=== PATIENT | female | born 1930 | race Caucasian/White ===

== ENCOUNTER 2016-09-24 16:05 | Inpatient (IN) | payer MEDICARE, OTHER ==
[~2016-09-24] VITALS: Ht 162.6 cm; Wt 60.0 kg
[~2016-09-24 16:05] MED LIST: HYDR-3671 PO; LEVO50TA83 PO; MELO7.5O PO; METO10TA96 PO; PANT40TA4 PO; ROSU20TA PO
--- NOTE | 2016-09-24 16:26 | ERA ---
ER Documentation Chief Complaint Date/Time DATE: 09/24/16 TIME: 16:22 Chief Complaint DIALYSIS ACESS PROBLEM HPI 86-year-old female history of end-stage renal disease on dialysis who presents with poor flow to the right upper extremity AV fistula. The patient underwent 2 hours of dialysis today but there was low flow. 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 Umanzor sent the patient to the emergency room for evaluation. The patient denies any chest pain shortness of breath, no fevers or chills, no bleeding. The patient otherwise has no complaints. ROS All systems reviewed and are negative except as per history of present illness. Medications Home Meds Reported Medications Cholecalciferol (Vitamin D3) 1,000 Unit Capsule, 1000 UNIT PO DAILY, CAP 09/24/16 Loratadine* (Loratadine*) 10 Mg Tablet, 10 MG PO DAILY Y for PRN, #30 TAB 09/24/16 Aspirin* (Aspirin* EC) 81 Mg Tablet.dr, 81 MG PO DAILY, TAB 09/24/16 Metoprolol Tartrate* (Lopressor*) 25 Mg Tab, 25 MG PO DAILY, #60 TAB 09/24/16 Multivit/Ca Carb/B Cmplx/Fa* (Diandra-Svetlana*) 1 Tab Tab, 1 TAB PO DAILY, TAB 09/24/16 Folic Acid* (Folic Acid*) 1 Mg Tablet, 1 MG PO DAILY, TAB 09/24/16 Docusate Sodium* (Colace*) 100 Mg Capsule, 100 MG PO BID, #60 CAP 09/24/16 Saxagliptin Hcl* (Onglyza*) 2.5 Mg Tablet, 2.5 MG PO QOTHER DAY, TAB 09/24/16 Calcium Acetate* (Phoslo*) 667 Mg Tablet, 667 MG PO WITH MEALS, TAB 09/24/16 Promethazine HCl/Codeine (Prometh-Codein 6.25-10 mg/5 ml) 5 Ml Syrup, 5 ML PO DAILY Y for PRN 09/24/16 Levothyroxine Sodium* (Synthroid*) 50 Mcg Tablet, 50 MCG PO BEFORE BREAKFAST, # 30 TAB 04/30/16 Metoclopramide Hcl* (Metoclopramide Hcl*) 10 Mg Tablet, 10 MG PO DAILY Y for NAUSEA AND OR VOMITING, TAB 04/30/16 Pantoprazole* (Pantoprazole*) 40 Mg Tablet.dr, 40 MG PO AC BREAKFAST, TAB 03/24/15 Rosuvastatin Calcium* (Crestor*) 20 Mg Tablet, 20 MG PO HS, TAB 03/24/15 Discontinued Reported Medications Iron Sucrose (Venofer) 50 Mg/2.5 Ml Vial, 50 MG IV WEEKLY, VIAL ON SCHED TRMT 09/24/16 Meloxicam* (Meloxicam*) 7.5 Mg/5 Ml Oral.susp, 15 MG PO DAILY, #300 ML 04/30/16 Hydralazine Hcl* (Hydralazine Hcl*) 25 Mg Tab, 25 MG PO BID, TAB 03/24/15 Allergies Allergies: Coded Allergies: Penicillins (Verified Allergy, Severe, SWELLING, 09/24/16) iodine (Verified Allergy, Severe, 09/24/16) PMhx/Soc History of Surgery: Yes (CABG, RUE AV fistula, R mastectomy) Anesthesia Reaction: No Hx Neurological Disorder: No Hx Respiratory Disorders: No Hx Cardiac Disorders: Yes (triple bypass 10 yrs ago) Hx Psychiatric Problems: No Hx Miscellaneous Medical Probl: Yes (HD every ,,Sat) Hx Alcohol Use: No Hx Substance Use: No Hx Tobacco Use: No FmHx Family History: No diabetes Physical Exam Vitals Vital Signs Date Time Temp Pulse Resp B/P Pulse Ox O2 Delivery O2 Flow Rate FiO2 09/24/16 16:42 Nasal Cannula 2 09/24/16 16:07 98.5 61 18 133/62 99 Physical Exam General: Well developed, well nourished, no acute distress Head: Normocephalic, atraumatic. Eyes: Pupils equally reactive, EOM intact ENT: Moist mucous membranes Neck: Supple, no lymphadenopathy Respiratory: Lungs clear bilaterally, no distress Cardiovascular: RRR, no murmurs, rubs, or gallops Abdominal: Soft, non-tender, non-distended, no peritoneal signs : Deferred MSK: No edema, no unilateral swelling, 5/5 strength, right upper extremity AV fistula with a bruit and thrill, dressing is clean dry and intact Neurologic: Alert and oriented, moving all extremities, normal speech, no focal weakness, no cerebellar signs Skin: No rash Psych: Normal mood Result Diagram: 09/24/16 1655 09/24/16 1655 Results 24 hrs Laboratory Tests Test 09/24/16 16:55 Activated Partial Thromboplast Time 29.5Sec Anion Gap 15 Basophils # 0.010^3/ul Basophils % 0.5% Blood Urea Nitrogen 53mg/dl Calcium Level 8.5mg/dl Carbon Dioxide Level 29mmol/L Chloride Level 93mmol/L Creatinine 2.76mg/dl Eosinophils # 0.310^3/ul Eosinophils % 4.1% Glucose Level 161mg/dl Hematocrit 33.9% Hemoglobin 10.8g/dl INR International Normalized Ratio 0.93 Lymphocytes # 1.810^3/ul Lymphocytes % 24.2% Mean Corpuscular Hemoglobin 33.6pg Mean Corpuscular Hemoglobin Concent 31.9g/dl Mean Corpuscular Volume 105.6fl Mean Platelet Volume 9.5fl Monocytes # 1.110^3/ul Monocytes % 14.7% Neutrophils # 4.110^3/ul Neutrophils % 56.0% Nucleated Red Blood Cells # 0.010^3/ul Nucleated Red Blood Cells % 0.0/100WBC Platelet Count 87940^3/UL Potassium Level 4.2mmol/L Prothrombin Time 12.5Sec Prothrombin Time Ratio 1.0 Red Blood Count 3.2110^6/ul Red Cell Distribution Width 13.5% Sodium Level 133mmol/L White Blood Count 7.410^3/ul Current Medications Medications (Trade) Dose Ordered Sig/Lisa Route PRN Reason Start Time Stop Time Status Last Admin Dose Admin IV Flush (NS 3 ml) 3 ml PER PROTOCOL IV 09/24/16 17:00 Ondansetron HCl (Zofran Inj) 4 mg Q6H PRN IV NAUSEA AND/OR VOMITING 09/24/16 17:00 Acetaminophen (Tylenol Tab) 650 mg Q6H PRN PO PAIN LEVEL 1-3 OR FEVER 09/24/16 17:00 Acetaminophen (Tylenol Supp) 650 mg Q6H PRN [place] PAIN LEVEL 1-3 OR FEVER 09/24/16 17:00 Docusate Sodium (Colace) 100 mg Q12H PRN PO CONSTIPATION 09/24/16 17:00 Bisacodyl (Dulcolax) 5 mg DAILY PRN PO CONSTIPATION 09/24/16 17:00 Pantoprazole (Protonix Iv) 40 mg DAILY@06 IV 09/25/16 06:00 Levothyroxine Sodium (Synthroid) 50 mcg BEFORE BREAKFAST PO 09/25/16 07:00 Metoclopramide HCl (Reglan) 10 mg DAILY PRN PO NAUSEA AND/OR VOMITING 09/24/16 17:30 Pantoprazole (Protonix Tab) 40 mg AC BREAKFAST PO 09/25/16 07:00 09/25/16 07:00 DC Atorvastatin Calcium (Lipitor) 80 mg HS PO 09/24/16 21:00 Ondansetron HCl (Zofran Inj) 4 mg BRIDGE ORDER PRN IV NAUSEA AND/OR VOMITING 09/24/16 18:00 09/25/16 17:59 Acetaminophen (Tylenol Tab) 650 mg ER BRIDGE PRN PO MILD PAIN/FEVER 09/24/16 18:00 09/25/16 17:59 Procedures/MDM EKG, MONITORS, & DIAGNOSTIC IMAGING: EKG: I reviewed and interpreted a 12-lead EKG. Rhythm: Normal sinus rhythm Ectopy: None Intervals: No abnormalities ST segments: No elevations or depressions T waves: No contiguous inversions LAB INTERPRETATION: Chronic renal failure, no hyperkalemia MEDICAL DECISION MAKING: The patient presents to the emergency room for evaluation of malfunctioning right upper extremity AV fistula. The patient has no evidence of volume overload. The patient will be evaluated for hyperkalemia. The patient may require inpatient hospitalization with vascular surgery consultation. At this time no indication for emergent dialysis. ER COURSE: The patient is resting comfortably. Dr. Umanzor has seen the patient. He is requesting vascular surgery consultation has been paged. The patient is stable for medical surgical placement given no evidence of hyperkalemia or volume overload. I kept the patient and/or family informed of laboratory and diagnostic imaging results throughout the emergency room course. DISPOSITION PLAN: Medical surgical admission for management of malfunctioning AV fistula CONSULTATION: Accepting care team and consultations: I discussed the current laboratory data, diagnostic imaging and emergency care provided. Admitting team: Dr. Fabiano Umanzor Admitting team indication: Insurance directed Consulting services: Dr. Connor, vascular surgeon was notified. Departure Diagnosis: Primary Impression: Dialysis AV fistula malfunction Qualified Code: T82.590A - Dialysis AV fistula malfunction, initial encounter Additional Impression: End stage renal disease on dialysis Condition: Stable MARISA LOPEZ MD Sep 24, 2016 16:26
[2016-09-24] MEDS ORDERED: NACL 0.9% 3 ML SYG IV SCH (17:00)
[2016-09-24] MEDS ORDERED: ONDANSETRON 4 MG INJ IV PRN ×2 (17:00→18:00)
[2016-09-24] MEDS ORDERED: ACETAMINOPHEN 650 MG SUPP PR PRN (17:00)
[2016-09-24] MEDS ORDERED: DOCUSATE SODIUM 100 MG CAP PO PRN (17:00)
[2016-09-24] MEDS ORDERED: BISACODYL (EC) 5 MG TAB PO PRN (17:00)
[2016-09-24 17:03] LABS: ADD SCAN DIFF NO
[2016-09-24 17:13] LABS: BASOPHILS % 0.5 % (0.0-2.0); EOSINOPHILS # 0.3 10^3/ul (0.0-0.5); EOSINOPHILS % 4.1 % (0.0-7.0); HEMATOCRIT 33.9 % (37.0-47.0); HEMOGLOBIN 10.8 g/dl (12.0-16.0); LYMPHOCYTES # 1.8 10^3/ul (0.8-2.9); LYMPHOCYTES % 24.2 % (15.0-51.0); MEAN CORPUSCULAR HEMOGLOBIN 33.6 pg (29.0-33.0); MEAN CORPUSCULAR HGB CONC 31.9 g/dl (32.0-37.0); MEAN CORPUSCULAR VOLUME 105.6 fl (82.0-101.0); MEAN PLATELET VOLUME 9.5 fl (7.4-10.4); MONOCYTE # 1.1 10^3/ul (0.3-0.9); MONOCYTES % 14.7 % (0.0-11.0); NEUTROPHIL # 4.1 10^3/ul (1.6-7.5); PLATELET COUNT 185 10^3/UL (140-415); RED BLOOD COUNT 3.21 10^6/ul (4.20-5.40); RED CELL DISTRIBUTION WIDTH 13.5 % (11.5-14.5); WHITE BLOOD COUNT 7.4 10^3/ul (4.8-10.8)
--- NOTE | 2016-09-24 17:13 | QN ---
Documentation Comment [id number] BRANDON MITCHELL MD Sep 24, 2016 17:13
--- NOTE | 2016-09-24 17:16 | RADRPT ---
PROCEDURE: XR Chest. CLINICAL INDICATION: Chest pain. TECHNIQUE: Single frontal view of the chest was obtained COMPARISON: Chest x-ray June 26, 2015 12:53 p.m. FINDINGS: A mediastinotomy was performed with vascular calcifications in the aortic arch. There are clips in the right axillary area. The heart is enlarged. The right pleural effusion seen on the prior study has resolved. The interstitial pulmonary edema seen on the prior study has resolved. The pulmonary vasculature remains equilibrated. IMPRESSION: 1. Cardiomegaly with atherosclerotic vascular disease involving the aortic arch. 2. Equilibration the pulmonary vasculature may reflect mild pulmonary venous obstruction. The inte rstitial pulmonary edema and right pleural effusion identified on June 26, 2015 has resolved. 3. Status post right axillary node dissection. 4. Status post median sternotomy. RPTAT:AAJJ Physician Nathaly Date Time Electronically viewed and signed by Physician Nathaly on 09/24/2016 17:15 CANDY/
[2016-09-24] MEDS ORDERED: PROM5SYR2 PO (17:18)
[2016-09-24] MEDS ORDERED: CALC667T2 PO (17:19)
[2016-09-24] MEDS ORDERED: IRON50VI2 IV (17:20)
[2016-09-24 17:22] LABS: INR 0.93; PARTIAL THROMBOPLASTIN TIME 29.5 Sec (25.0-35.0); PROTIME 12.5 Sec (12.2-14.2)
[2016-09-24] MEDS ORDERED: SAXA2.5T PO (17:23)
[2016-09-24] MEDS ORDERED: FOLI-49 PO (17:24)
[2016-09-24] MEDS ORDERED: DOCU-144 PO (17:24)
[2016-09-24] MEDS ORDERED: NEPH PO (17:25)
[2016-09-24] MEDS ORDERED: ASPI-664 PO (17:26)
[2016-09-24] MEDS ORDERED: METO-448 PO (17:26)
[2016-09-24] MEDS ORDERED: LORA10TA3 PO (17:27)
[2016-09-24] MEDS ORDERED: CHOL10009 PO (17:29)
[2016-09-24] MEDS ORDERED: METOCLOPRAMIDE 10 MG TAB PO PRN (17:30)
[2016-09-24 17:42] LABS: POTASSIUM 4.2 mmol/L (3.5-5.1)
[2016-09-24 17:44] LABS: CREATININE 2.76 mg/dl (0.44-1.00)
[2016-09-24 17:45] LABS: CALCIUM 8.5 mg/dl (8.4-10.2)
[2016-09-24] MEDS ORDERED: ACETAMINOPHEN 325 MG TAB PO PRN (18:00)
--- NOTE | 2016-09-24 18:12 | HP ---
DATE OF ADMISSION: 09/24/2016 HISTORY OF PRESENT ILLNESS: The patient is an 86-year-old female with history of ESRD, hypertension , diabetes mellitus, CAD, history of AV fistula in the right upper extremity. Status post patient h as a history of fall mechanical, history of osteoporotic compression fracture of T12 and L3 vertebra l bodies with retropulsion in the past, history of L1 compression fracture, history of diabetes, hyp ertension, history of humerus fracture, history of breast carcinoma status post mastectomy left, his tory of chemotherapy, history of sepsis, history of CAD, history of atherosclerotic heart disease, d yslipidemia, presented with clotted AV graft and is going to be admitted for further management. PAST MEDICAL HISTORY: As mentioned above. Briefly, ESRD, hypertension, diabetes mellitus, CAD, ath erosclerotic heart disease. ALLERGIES: 1. PENICILLIN. 2. IODINE. SOCIAL HISTORY: Negative. FAMILY HISTORY: Negative. MEDICATION HISTORY: Positive medication history. The patient is on: 1. Hydralazine. 2. Levothyroxine. 3. Meloxicam. 4. Reglan. 5. Protonix. 6. Crestor. REVIEW OF SYSTEMS: HEENT: Unremarkable. RESPIRATORY: Unremarkable. CARDIOVASCULAR: Unremarkable. ABDOMEN: Unremarkable. EXTREMITIES: Clotted AV graft in the right upper extremity. CENTRAL NERVOUS SYSTEM: Unremarkable. PHYSICAL EXAMINATION: GENERAL: The patient is awake and alert. VITAL SIGNS: Stable 133/62, pulse 61. HEAD: Atraumatic, normocephalic. Pupils equal, reactive to light. NECK: Supple. No JVD. LUNGS: Clear. CARDIOVASCULAR: S1, S2 is normal. Systolic murmur noted. ABDOMEN: Soft, nontender. Bowel sounds positive. No palpable mass. EXTREMITIES: No cyanosis, clubbing, or edema. The patient has clotted graft right upper extremity. NETWORK DEVELOPER: The patient is awake, alert, no focal deficit. LABORATORY DATA: Not available at this point. IMPRESSION: 1. Clotted AV graft. 2. ESRD. 3. Hypertension. 4. Diabetes mellitus. 5. Atherosclerotic heart disease. 6. History of breast cancer with mastectomy, left. 7. History of humerus fracture, left in the past. 8. History of compression fracture of the vertebra L1. 9. History of dyslipidemia. 10. History of CAD. 11. History of osteoporosis. PLAN: To obtain laboratory data. Review ER record. Dr. Malekmehr was called to see this patient i n consultation for declotting of the AV graft. Orders were done. Dictated By: BRANDON CHRISTIE/CHRISTI Conf#: [id number] DID#: [id number]
[2016-09-24 20:15] VITALS: BP 140/64; RESP 18
--- NOTE | 2016-09-24 21:15 | RADRPT ---
PROCEDURE: Ultrasound arterial upper extremity. CLINICAL INDICATION: No flow in arteriovenous fistula. Right upper extremity arterial venous fistu la. TECHNIQUE: Multiple yeh scale and color Doppler sonographic images of the hemodialysis fistula of the upper extremity was performed. COMPARISON: None. FINDINGS: The inflow artery is patent with velocities of 95-120 cm/sec proximal to the anastomosis. The veloc ity at the anastomosis is approximately 95 cm/sec. Velocity within the outflow vein distal to the a nastomosis is approximately 95-115 cm/sec. The distal portion of the outflow vein is completely thr ombosed. The left axillary vein is patent. IMPRESSION: Thrombosis of the distal portion of the outflow vein of the arterial venous fistula. Diminished mac ocities within the inflow artery. Imaging findings are compatible with AVF dysfunction. RPTAT: HLST .Joann Waldron MD, Date Time Electronically viewed and signed by .Joann Waldron MD, on 09/24/2016 21:14 .T/
[2016-09-24 21:36] VITALS: Ht 162.6 cm; Wt 60.0 kg
[2016-09-24] MEDS: ATORVASTATIN 80 MG TAB PO SCH (22:05)
[2016-09-24] MEDS ORDERED: GLUCAGON 1 MG INJ IM PRN (22:30)
[2016-09-24] MEDS ORDERED: DEXTROSE 50% 50 ML SYRINGE IV PRN ×2 (22:30)
[2016-09-24] MEDS ORDERED: GLUCOSE GEL 15 GRAM TUBE PO PRN ×2 (22:30)
[2016-09-24] MEDS ORDERED: GLUCOSE GEL 15 GRAM TUBE BUCCAL PRN (22:30)
[2016-09-25] VITALS (9 sets, daily range): BP systolic 102–133; BP diastolic 51–63; PULSE 60–66; RESP 18
[2016-09-25] MEDS: ACCUCHECK XX SCH (02:00)
[2016-09-25] MEDS: LEVOTHYROXINE 50 MCG TAB PO SCH (06:08)
[2016-09-25] MEDS: PANTOPRAZOLE 40 MG INJ IV SCH (06:08)
[2016-09-25] MEDS ORDERED: HEPARIN 1000 UNITS/ML 10 ML INJ CATHETER ONE (06:30)
[2016-09-25] MEDS ORDERED: PANTOPRAZOLE (EC) 40 MG TAB PO SCH (07:00)
--- NOTE | 2016-09-25 07:34 | OPR ---
Date/Time of Note Date/Time of Note DATE: 09/25/16 TIME: 07:33 Operative Report Free Text/Dictation DATE OF OPERATION: 09/25/2016 SURGEON: Hakeem Caldwell MD PREOPERATIVE DIAGNOSIS: ESRD POSTOPERATIVE DIAGNOSIS: same ANESTHESIA: Local BLOOD LOSS: minimal COMPLICATIONS: None. ACCESS: Right common femoral vein INDICATIONS: This is a 86 year-old female with ESRD requiring urgent dialysis. Patient and family have been informed of the alternatives, risks, and benefits. Risks including but not limited to bleeding, thrombosis, embolization , myocardial infarction, , device malfunction, infection, pneumothorax, nephrotoxicity and patient has agreed to proceed. PROCEDURE: 1. Ultrasound guided access of right common femoral vein 2. Urgent Right common femoral vein non-tunneled hemodialysis catheter placement DESCRIPTION: The patient was in supine position in her bed. Bed was placed in slight Trendelenburg position and the groin was prepped and draped with sterile technique. The central catheter was flushed with heparin to ensure function of each port. Landmarks were identified and the skin entry site was chosen using ultrasound guidance. The skin And subcutaneous tissue were anesthetized with 1% lidocaine. The vein was then located with a needle with a 10 mL syringe using ultrasound guidance. The needle was then directed towards the vein and was entered. The needle position was secured and syringe was removed. The hub was occluded to prevent venous air embolus. The guidewire was passed easily and the needle was removed while the wire was held in place. A small incision was then made at the point of the wire entry. The dilator was placed over the wire and the tract gently dilated. The catheter was fed over the wire, ensuring the wire exited from the port before advancing the catheter. The catheter was inserted to the desired depth and the wire removed. Each port was aspirated to ensure adequate blood flow and then flushed with heparinized saline solution. The catheter was secured in place with a 2-0 nylon suture and a sterile dressing was applied. The patient tolerated the procedure well and was in stable condition. All instrument, sponge and needle counts were correct 2. HAKEEM CALDWELL MD Sep 25, 2016 07:34
[2016-09-25] MEDS: ACETAMINOPHEN 325 MG TAB PO PRN ×2 (07:46→23:29)
[2016-09-25] MEDS: INSULIN ASPART [NOVOLOG] 3 ML PEN SC SCH ×4 (07:58→21:00)
[2016-09-25 08:48] LABS: ADD SCAN DIFF NO
[2016-09-25 08:52] LABS: BASOPHILS % 0.4 % (0.0-2.0); EOSINOPHILS # 0.4 10^3/ul (0.0-0.5); EOSINOPHILS % 4.6 % (0.0-7.0); HEMATOCRIT 32.1 % (37.0-47.0); HEMOGLOBIN 10.9 g/dl (12.0-16.0); LYMPHOCYTES # 1.6 10^3/ul (0.8-2.9); LYMPHOCYTES % 17.4 % (15.0-51.0); MEAN CORPUSCULAR HEMOGLOBIN 34.2 pg (29.0-33.0); MEAN CORPUSCULAR HGB CONC 33.8 g/dl (32.0-37.0); MEAN CORPUSCULAR VOLUME 101.2 fl (82.0-101.0); MEAN PLATELET VOLUME 7.8 fl (7.4-10.4); MONOCYTES % 11.4 % (0.0-11.0); NEUTROPHIL # 6.1 10^3/ul (1.6-7.5); NEUTROPHILS % 66.2 % (39.0-77.0); PLATELET COUNT 196 10^3/UL (140-440); RED BLOOD COUNT 3.17 10^6/ul (4.20-5.40); RED CELL DISTRIBUTION WIDTH 14.3 % (11.5-14.5); WHITE BLOOD COUNT 9.2 10^3/ul (4.8-10.8)
[2016-09-25 09:04] LABS: POTASSIUM 4.7 mmol/L (3.5-5.1)
[2016-09-25 09:06] LABS: CREATININE 2.77 mg/dl (0.44-1.00)
[2016-09-25 09:07] LABS: CALCIUM 8.3 mg/dl (8.4-10.2)
--- NOTE | 2016-09-25 09:43 | CONS ---
DATE OF ADMISSION: 09/24/2016 DATE OF CONSULTATION: 09/24/2016 TYPE OF CONSULTATION: Vascular Surgery Dear Doctors: Ms. Aguilera is an 86-year-old, pleasant female with a history of end-stage renal disease and a right u pper extremity fistula. It seems that the patient has had some issues with it over the past week an d was unable to have a complete session yesterday. Therefore, the patient was sent to the emergency department for evaluation and possible intervention. At the moment, the patient does have a histor y of osteoporosis and has a compression fracture of the T12 and L3 vertebral bodies with retropulsio n and a history of an L1 compression fracture in which she constantly has back pain. Other than sadi t, the patient denies right upper extremity claudication or rest pain-like symptoms. The patient de nies shortness of breath, chest pain, nausea, vomiting, fever or chills. REVIEW OF SYSTEMS: A 12-point review performed and negative except what is mentioned in the HPI. PAST MEDICAL HISTORY: Entails end-stage renal disease, scheduled for Tuesday, Tuesday, Tuesday, his tory of diabetes, hypertension, coronary artery disease, osteoporosis, bilateral knee osteoarthritis , compression fractures of T12, L3, L1, dyslipidemia, bilateral lower extremity atherosclerosis. ALLERGIES: 1. PENICILLIN. 2. IODINE. SOCIAL HISTORY: Denies tobacco, alcohol or illicit drug use. FAMILY HISTORY: Coronary artery disease. PAST SURGICAL HISTORY: Multiple chest wall catheters and AV fistula creations. PHYSICAL EXAMINATION: GENERAL: Alert and oriented x3, no apparent distress. HEENT: Normocephalic, atraumatic. PERRLA, EOMI. Mucosa moist. Hard of hearing. NECK: Supple. No carotid bruit. PULMONARY: Clear to auscultation bilaterally. No crackles. CARDIOVASCULAR: S1, S2 present. No murmurs. ABDOMEN: Soft, nontender, nondistended. Bowel sounds positive. EXTREMITIES: Right lower extremity palpable femoral pulse, nonpalpable pedal pulse. Motor, sensory intact. Capillary refill 3 seconds. No ulcers identified. Left lower extremity palpable femoral pulse, nonpalpable pedal pulse. Motor, sensory intact. Capillary refill 3 seconds. No ulcers or e tristan identified. Right upper extremity palpable brachial pulse. Motor, sensory intact. Capillary refill 2 seconds. Right upper arm with a fistula that seems to be brachiobasilic. There is a surgi rylan scar that is well healed but there is no adequate bruit and thrill. However, there is pulsatile of the fistula. ASSESSMENT AND PLAN: 1. End-stage renal disease: Due to the patient's fistula may have areas of stenosis, my concern is that she may have central stenosis. The fistula seems to be more pulsatile and had bruit and thril l. At the moment, we will plan to schedule the patient for a fistulogram. However, during the week end the environmental laboratory technician is only for STEMIs. Will plan to do this upcoming Tuesday hopefully. At the moment , will plan to place an urgent Barrera catheter for the patient, therefore, she can undergo an appro priate dialysis session. 2. Will plan to obtain a bilateral upper extremity vein mapping in any case we need to revise her f istula. 3. Bilateral lower extremity atherosclerosis: It seems the patient has had history of lower extrem ity atherosclerosis as she does not have palpable pedal pulses. We will plan to obtain a vascular s urveillance of lower extremity ultrasound for further evaluation. However, at the moment, they are viable and no further intervention will be needed. This can be managed as an outpatient. 4. Discussed optimization of vascular status (BP meds, diet, nutrition, exercise, sugar control, an tiplatelets). 5. Discussed findings, plan and management with the patient and she understands. Thank you for allowing us to participate in the care of your patient. Please call with any question s. Dictated By: HASMUKH BROOKS/CHRISTI Conf#: [id number] DID#: [id number]
[2016-09-25] MEDS ORDERED: HEPARIN 1000 UNITS/ML 10 ML INJ CATHETER SCH (16:00)
[2016-09-25] MEDS ORDERED: ALBUMIN HUMAN 25% 100 ML IV PRN (16:00)
--- NOTE | 2016-09-25 19:19 | PN ---
Date/Time of Note Date/Time of Note DATE: 09/25/16 TIME: 19:16 Assessment/Plan VTE Prophylaxis VTE Prophylaxis Intervention: other Lines/Catheters IV Catheter Type (from Nrsg): Barrera Catheter Assessment/Plan Assessment/Plan IMPRESSION: 1. Clotted AV graft. 2. ESRD. 3. Hypertension. 4. Diabetes mellitus. 5. Atherosclerotic heart disease. 6. History of breast cancer with mastectomy, left. 7. History of humerus fracture, left in the past. 8. History of compression fracture of the vertebra L1. 9. History of dyslipidemia. 10. History of CAD. 11. History of osteoporosis. [id number] declotting plan per vascular Subjective 24 Hr Interval Summary Constitutional: no complaints Eyes: no complaints ENT: no complaints Gastrointestinal: no complaints Genitourinary: no complaints Musculoskeletal: no complaints Exam/Review of Systems Vital Signs Vitals Vital Signs Date Time Temp Pulse Resp B/P Pulse Ox O2 Delivery O2 Flow Rate FiO2 09/25/16 07:37 98.7 67 18 124/58 92 09/24/16 19:52 Room Air 09/24/16 16:42 2 Intake and Output 09/24/16 09/24/16 09/25/16 15:00 23:00 07:00 Intake Total 300 ml Balance 300 ml Exam Constitutional: alert, oriented, well developed Psych: no complaints Head: normocephalic Eyes: nl conjunctiva ENMT: nl external ears & nose Neck: supple Respiratory: clear to auscultation, normal air movement Cardiovascular: nl pulses, regular rate and rhythm Gastrointestinal: nl liver, spleen, soft Extremities: normal pulses Neurological: [employer] [place] II-XII intact, nl mental status Results Result Diagram: 09/25/16 0755 09/25/16 0755 Results 24 hrs Laboratory Tests Test 09/24/16 21:02 09/25/16 07:54 09/25/16 07:55 09/25/16 11:58 Bedside Glucose 83 108 171 Anion Gap 15 Basophils # 0.0 Basophils % 0.4 Blood Morphology Comment Blood Urea Nitrogen 60 H Calcium Level 8.3 L Carbon Dioxide Level 28 Chloride Level 98 Creatinine 2.77 H Eosinophils # 0.4 Eosinophils % 4.6 Glucose Level 95 # Hematocrit 32.1 L Hemoglobin 10.9 L Lymphocytes # 1.6 Lymphocytes % 17.4 Mean Corpuscular Hemoglobin 34.2 H Mean Corpuscular Hemoglobin Concent 33.8 Mean Corpuscular Volume 101.2 H Mean Platelet Volume 7.8 Monocytes # 1.0 H Monocytes % 11.4 H Neutrophils # 6.1 Neutrophils % 66.2 Nucleated Red Blood Cells # 0.0 Nucleated Red Blood Cells % 0.0 Platelet Count 196 Potassium Level 4.7 Red Blood Count 3.17 L Red Cell Distribution Width 14.3 Sodium Level 136 White Blood Count 9.2 # Test 09/25/16 17:29 Bedside Glucose 87 Medications Medications Current Medications Ondansetron HCl (Zofran Inj) 4 mg Q6H PRN IV NAUSEA AND/OR VOMITING; Start 05/31 at 17:00 Acetaminophen (Tylenol Tab) 650 mg Q6H PRN PO PAIN LEVEL 1-3 OR FEVER Last administered on 09/25/16 07:46; Admin Dose 650 MG; Start 09/24/16 at 17:00 Acetaminophen (Tylenol Supp) 650 mg Q6H PRN [place] PAIN LEVEL 1-3 OR FEVER; Start 09/24/16 at 17:00 Docusate Sodium (Colace) 100 mg Q12H PRN PO CONSTIPATION; Start 09/24/16 at 17: 00 Bisacodyl (Dulcolax) 5 mg DAILY PRN PO CONSTIPATION; Start 09/24/16 at 17:00 Pantoprazole (Protonix Iv) 40 mg DAILY@06 IV Last administered on 09/25/16 06: 08; Admin Dose 40 MG; Start 09/25/16 at 06:00 Metoclopramide HCl (Reglan) 10 mg DAILY PRN PO NAUSEA AND/OR VOMITING; Start at 17:30 Atorvastatin Calcium (Lipitor) 80 mg HS PO Last administered on 09/24/16 22:05 ; Admin Dose 80 MG; Start 09/24/16 at 21:00 Diagnostic Test (Pha) (Accucheck) 1 ea 02 XX ; Start 09/25/16 at 02:00 Miscellaneous Information 1 ea NOTE XX ; Start 09/24/16 at 22:30 Glucose (Glutose) 15 gm Q15M PRN PO DECREASED GLUCOSE; Start 09/24/16 at 22:30 Glucose (Glutose) 22.5 gm Q15M PRN PO DECREASED GLUCOSE; Start 09/24/16 at 22: 30 Dextrose (D50w Syringe) 25 ml Q15M PRN IV DECREASED GLUCOSE; Start 09/24/16 at 22:30 Dextrose (D50w Syringe) 50 ml Q15M PRN IV DECREASED GLUCOSE; Start 09/24/16 at 22:30 Glucagon (Glucagen) 1 mg Q15M PRN IM DECREASED GLUCOSE; Start 09/24/16 at 22:30 Glucose (Glutose) 15 gm Q15M PRN BUCCAL DECREASED GLUCOSE; Start 09/24/16 at 22 :30 Heparin Sodium (Porcine) (Heparin (1000 Units/ml)) 5,000 unit ONCE ONCE CATHETER ; Start 09/25/16 at 06:30; Stop 09/25/16 at 06:31 CAROL COHEN MD Sep 25, 2016 19:19
[2016-09-25] MEDS ORDERED: ALTEPLASE (CATHFLO) 2 MG INJ CATHETER ONE (21:30)
[2016-09-25] MEDS: ATORVASTATIN 80 MG TAB PO SCH (23:27)
[2016-09-26] MEDS ORDERED: [UNRECOGNIZED DRUG - OTHER] PO PRN (01:00)
[2016-09-26] MEDS ORDERED: LORATADINE 10 MG TAB PO PRN (01:00)
[2016-09-26] MEDS ORDERED: CODEINE PO PRN (01:00)
[2016-09-26] MEDS ORDERED: PROMETHAZINE HCL PO PRN (01:00)
[2016-09-26] MEDS: ACCUCHECK XX SCH (01:02)
[2016-09-26] MEDS ORDERED: PROMETHAZINE/CODEINE 5ML CUP PO PRN (01:30)
[2016-09-26] MEDS: ACETAMINOPHEN 325 MG TAB PO PRN ×2 (06:27→20:37)
[2016-09-26] MEDS: LEVOTHYROXINE 50 MCG TAB PO SCH (06:27)
[2016-09-26] MEDS: PANTOPRAZOLE 40 MG INJ IV SCH (06:27)
[2016-09-26 07:07] LABS: POTASSIUM 4.2 mmol/L (3.5-5.1)
[2016-09-26 07:09] LABS: CREATININE 2.07 mg/dl (0.44-1.00)
[2016-09-26 07:10] LABS: ALBUMIN/GLOBULIN RATIO 1.07; TOTAL PROTEIN 5.8 g/dl (6.1-8.1)
[2016-09-26 08:13] VITALS: BP 119/58; RESP 16
[2016-09-26] MEDS: INSULIN ASPART [NOVOLOG] 3 ML PEN SC SCH ×4 (08:15→20:44)
[2016-09-26] MEDS ORDERED: SAXAGLIPTIN HYDROCHLORIDE 5 MG TAB PO SCH (09:00)
[2016-09-26] MEDS: CHOLECALCIFEROL 1,000 UNIT TAB PO SCH (09:44)
[2016-09-26] MEDS: DOCUSATE SODIUM 100 MG CAP PO SCH ×2 (09:44→20:37)
[2016-09-26] MEDS: MULTIVIT/CA CARB/B CMPLX/FA TAB PO SCH (09:44)
[2016-09-26] MEDS: ASPIRIN (EC) 81 MG TAB PO SCH (09:44)
[2016-09-26] MEDS: FOLIC ACID 1 MG TAB PO SCH (09:44)
[2016-09-26] MEDS: CALCIUM ACETATE 667 MG CAP PO SCH ×3 (09:46→17:48)
[2016-09-26] MEDS: METOPROLOL 25 MG TAB PO SCH (09:47)
--- NOTE | 2016-09-26 10:34 | PN ---
Date/Time of Note Date/Time of Note DATE: 09/26/16 TIME: 10:32 Assessment/Plan VTE Prophylaxis VTE Prophylaxis Intervention: other Lines/Catheters IV Catheter Type (from Nrsg): rene cath Assessment/Plan Chief Complaint/Hosp Course MPRESSION: 1. Clotted AV graft. 2. ESRD. 3. Hypertension. 4. Diabetes mellitus. 5. Atherosclerotic heart disease. 6. History of breast cancer with mastectomy, left. 7. History of humerus fracture, left in the past. 8. History of compression fracture of the vertebra L1. 9. History of dyslipidemia. 10. History of CAD. 11. History of osteoporosis. [id number] declotting plan per vascular [id number] declottinig pending hd via rene yesterday Problems: Subjective 24 Hr Interval Summary Constitutional: no complaints Exam/Review of Systems Vital Signs Vitals Vital Signs Date Time Temp Pulse Resp B/P Pulse Ox O2 Delivery O2 Flow Rate FiO2 09/26/16 08:13 98.1 64 16 119/58 93 09/24/16 19:52 Room Air 09/24/16 16:42 2 Intake and Output 09/25/16 09/25/16 09/26/16 15:00 23:00 07:00 Intake Total 1660 ml 240 ml Output Total 1500 ml Balance 160 ml 240 ml Exam Constitutional: alert Psych: no complaints Head: normocephalic ENMT: nl external ears & nose Neck: supple Respiratory: clear to auscultation Cardiovascular: regular rate and rhythm Gastrointestinal: soft Extremities: normal pulses Results Result Diagram: 09/25/16 0755 09/26/16 0510 Results 24 hrs Laboratory Tests Test 09/25/16 11:58 09/25/16 17:29 09/25/16 21:57 09/26/16 05:10 Bedside Glucose 171 87 116 Alanine Aminotransferase (ALT/SGPT) 23 Albumin 3.0 L Albumin/Globulin Ratio 1.07 Alkaline Phosphatase 68 Anion Gap 15 Aspartate Amino Transf (AST/SGOT) 22 Blood Urea Nitrogen 50 H Calcium Level 8.0 L Carbon Dioxide Level 28 Chloride Level 97 Creatinine 2.07 H Direct Bilirubin 0.00 Globulin 2.80 Glucose Level 89 Indirect Bilirubin 0.0 Potassium Level 4.2 Sodium Level 136 Total Bilirubin 0.0 L Total Protein 5.8 L Test 09/26/16 08:00 Bedside Glucose 91 Medications Medications Current Medications Ondansetron HCl (Zofran Inj) 4 mg Q6H PRN IV NAUSEA AND/OR VOMITING; Start 05/31 at 17:00 Acetaminophen (Tylenol Tab) 650 mg Q6H PRN PO PAIN LEVEL 1-3 OR FEVER Last administered on 09/26/16 06:27; Admin Dose 650 MG; Start 09/24/16 at 17:00 Acetaminophen (Tylenol Supp) 650 mg Q6H PRN NM PAIN LEVEL 1-3 OR FEVER; Start 09/24/16 at 17:00 Docusate Sodium (Colace) 100 mg Q12H PRN PO CONSTIPATION Last administered on 23:27; Admin Dose 100 MG; Start 09/24/16 at 17:00 Bisacodyl (Dulcolax) 5 mg DAILY PRN PO CONSTIPATION Last administered on 23:27; Admin Dose 5 MG; Start 09/24/16 at 17:00 Pantoprazole (Protonix Iv) 40 mg DAILY@06 IV Last administered on 09/26/16 06: 27; Admin Dose 40 MG; Start 09/25/16 at 06:00 Metoclopramide HCl (Reglan) 10 mg DAILY PRN PO NAUSEA AND/OR VOMITING; Start at 17:30 Atorvastatin Calcium (Lipitor) 80 mg HS PO Last administered on 09/25/16 23:27 ; Admin Dose 80 MG; Start 09/24/16 at 21:00 Diagnostic Test (Pha) (Accucheck) 1 ea 02 XX ; Start 09/25/16 at 02:00 Miscellaneous Information 1 ea NOTE XX ; Start 09/24/16 at 22:30 Glucose (Glutose) 15 gm Q15M PRN PO DECREASED GLUCOSE; Start 09/24/16 at 22:30 Glucose (Glutose) 22.5 gm Q15M PRN PO DECREASED GLUCOSE; Start 09/24/16 at 22: 30 Dextrose (D50w Syringe) 25 ml Q15M PRN IV DECREASED GLUCOSE; Start 09/24/16 at 22:30 Dextrose (D50w Syringe) 50 ml Q15M PRN IV DECREASED GLUCOSE; Start 09/24/16 at 22:30 Glucagon (Glucagen) 1 mg Q15M PRN IM DECREASED GLUCOSE; Start 09/24/16 at 22:30 Glucose (Glutose) 15 gm Q15M PRN BUCCAL DECREASED GLUCOSE; Start 09/24/16 at 22 :30 Heparin Sodium (Porcine) (Heparin (1000 Units/ml)) 5,000 unit ONCE ONCE CATHETER ; Start 09/25/16 at 06:30; Stop 09/25/16 at 06:31 Alteplase, Recombinant (Cathflo (Activase)) 2 mg ONCE ONCE CATHETER Last administered on 09/25/16 22:19; Admin Dose 2 MG; Start 09/25/16 at 21:30; Stop 09/25/16 at 21:31 Aspirin (Halfprin) 81 mg DAILY PO Last administered on 09/26/16 09:44; Admin Dose 81 MG; Start 09/26/16 at 09:00 Cholecalciferol (Vitamin D) 1,000 unit DAILY PO Last administered on 09/26/16 09:44; Admin Dose 1,000 UNIT; Start 09/26/16 at 09:00 Docusate Sodium (Colace) 100 mg BID PO Last administered on 09/26/16 09:44; Admin Dose 100 MG; Start 09/26/16 at 09:00 Folic Acid (Folic Acid) 1 mg DAILY PO Last administered on 09/26/16 09:44; Admin Dose 1 MG; Start 09/26/16 at 09:00 Loratadine (Claritin) 10 mg DAILY PRN PO PRN; Start 09/26/16 at 01:00 Metoprolol Tartrate (Lopressor) 25 mg DAILY PO Last administered on 09/26/16 09:47; Admin Dose 25 MG; Start 09/26/16 at 09:00 Multivit/Ca Carb/ B Cmplx/FA/Prenat (Diandra-Svetlana) 1 tab DAILY PO Last administered on 09/26/16 09:44; Admin Dose 1 TAB; Start 09/26/16 at 09:00 Saxagliptin Hydrochloride (Onglyza) 2.5 mg Q2D@09 PO Last administered on 09:43; Admin Dose 2.5 MG; Start 09/26/16 at 09:00 Promethazine HCl/ Codeine (Phenergan/ Codeine) 5 ml DAILY PRN PO COUGH; Start 09/26/16 at 01:30 CAROL COHEN MD Sep 26, 2016 10:34
[2016-09-26] MEDS: ATORVASTATIN 80 MG TAB PO SCH (20:37)
[2016-09-26 20:45] VITALS: BP 144/62; RESP 18
[2016-09-27] VITALS (9 sets, daily range): BP systolic 99–144; BP diastolic 52–71; PULSE 71–82; RESP 16–20
[2016-09-27] MEDS: ACCUCHECK XX SCH (02:00)
[2016-09-27] MEDS: ACETAMINOPHEN 325 MG TAB PO PRN ×2 (06:13→18:15)
[2016-09-27] MEDS: LEVOTHYROXINE 50 MCG TAB PO SCH (06:13)
[2016-09-27] MEDS: PANTOPRAZOLE 40 MG INJ IV SCH (06:13)
[2016-09-27] MEDS: CALCIUM ACETATE 667 MG CAP PO SCH ×3 (08:15→18:00)
[2016-09-27] MEDS: INSULIN ASPART [NOVOLOG] 3 ML PEN SC SCH ×4 (08:15→21:00)
[2016-09-27] MEDS: DOCUSATE SODIUM 100 MG CAP PO SCH ×2 (09:00→21:00)
[2016-09-27] MEDS: METOPROLOL 25 MG TAB PO SCH (09:00)
[2016-09-27] MEDS: FOLIC ACID 1 MG TAB PO SCH (09:00)
[2016-09-27] MEDS: CHOLECALCIFEROL 1,000 UNIT TAB PO SCH (09:00)
[2016-09-27] MEDS: MULTIVIT/CA CARB/B CMPLX/FA TAB PO SCH (09:00)
[2016-09-27] MEDS: ASPIRIN (EC) 81 MG TAB PO SCH (09:00)
--- NOTE | 2016-09-27 12:09 | PN ---
Date/Time of Note Date/Time of Note DATE: 09/27/16 TIME: 12:07 Assessment/Plan VTE Prophylaxis VTE Prophylaxis Intervention: other Lines/Catheters IV Catheter Type (from Nrsg): rene cath Assessment/Plan Chief Complaint/Hosp Course MPRESSION: 1. Clotted AV graft. 2. ESRD. 3. Hypertension. 4. Diabetes mellitus. 5. Atherosclerotic heart disease. 6. History of breast cancer with mastectomy, left. 7. History of humerus fracture, left in the past. 8. History of compression fracture of the vertebra L1. 9. History of dyslipidemia. 10. History of CAD. 11. History of osteoporosis. [id number] declotting plan per vascular [id number] declottinig pending hd via rene yesterdayMPRESSION: [id number] sgy plan per vascular Problems: Subjective 24 Hr Interval Summary Constitutional: no complaints Exam/Review of Systems Vital Signs Vitals Vital Signs Date Time Temp Pulse Resp B/P Pulse Ox O2 Delivery O2 Flow Rate FiO2 09/27/16 07:55 97.9 59 16 140/61 91 09/24/16 19:52 Room Air 09/24/16 16:42 2 Intake and Output 09/26/16 09/26/16 09/27/16 15:00 23:00 07:00 Intake Total 1100 ml 520 ml Balance 1100 ml 520 ml Exam Constitutional: alert, oriented Psych: no complaints Neck: supple Respiratory: clear to auscultation, normal air movement Cardiovascular: regular rate and rhythm Gastrointestinal: nl liver, spleen, soft Musculoskeletal: nl extremities to inspection Results Result Diagram: 09/25/16 0755 09/26/16 0510 Results 24 hrs Laboratory Tests Test 09/26/16 17:45 09/26/16 20:43 09/27/16 07:51 09/27/16 11:48 Bedside Glucose 124 103 94 90 Medications Medications Current Medications Ondansetron HCl (Zofran Inj) 4 mg Q6H PRN IV NAUSEA AND/OR VOMITING; Start 05/31 at 17:00 Acetaminophen (Tylenol Tab) 650 mg Q6H PRN PO PAIN LEVEL 1-3 OR FEVER Last administered on 09/27/16t 06:13; Admin Dose 650 MG; Start 09/24/16 at 17:00 Acetaminophen (Tylenol Supp) 650 mg Q6H PRN [place] PAIN LEVEL 1-3 OR FEVER; Start 09/24/16 at 17:00 Docusate Sodium (Colace) 100 mg Q12H PRN PO CONSTIPATION Last administered on 23:27; Admin Dose 100 MG; Start 09/24/16 at 17:00 Bisacodyl (Dulcolax) 5 mg DAILY PRN PO CONSTIPATION Last administered on 23:27; Admin Dose 5 MG; Start 09/24/16 at 17:00 Pantoprazole (Protonix Iv) 40 mg DAILY@06 IV Last administered on 09/27/16 06: 13; Admin Dose 40 MG; Start 09/25/16 at 06:00 Metoclopramide HCl (Reglan) 10 mg DAILY PRN PO NAUSEA AND/OR VOMITING; Start at 17:30 Atorvastatin Calcium (Lipitor) 80 mg HS PO Last administered on 09/26/16 20:37 ; Admin Dose 80 MG; Start 09/24/16 at 21:00 Diagnostic Test (Pha) (Accucheck) 1 ea 02 XX ; Start 09/25/16 at 02:00 Miscellaneous Information 1 ea NOTE XX ; Start 09/24/16 at 22:30 Glucose (Glutose) 15 gm Q15M PRN PO DECREASED GLUCOSE; Start 09/24/16 at 22:30 Glucose (Glutose) 22.5 gm Q15M PRN PO DECREASED GLUCOSE; Start 09/24/16 at 22: 30 Dextrose (D50w Syringe) 25 ml Q15M PRN IV DECREASED GLUCOSE; Start 09/24/16 at 22:30 Dextrose (D50w Syringe) 50 ml Q15M PRN IV DECREASED GLUCOSE; Start 09/24/16 at 22:30 Glucagon (Glucagen) 1 mg Q15M PRN IM DECREASED GLUCOSE; Start 09/24/16 at 22:30 Glucose (Glutose) 15 gm Q15M PRN BUCCAL DECREASED GLUCOSE; Start 09/24/16 at 22 :30 Aspirin (Halfprin) 81 mg DAILY PO Last administered on 09/26/16 09:44; Admin Dose 81 MG; Start 09/26/16 at 09:00 Cholecalciferol (Vitamin D) 1,000 unit DAILY PO Last administered on 09/26/16 09:44; Admin Dose 1,000 UNIT; Start 09/26/16 at 09:00 Docusate Sodium (Colace) 100 mg BID PO Last administered on 09/26/16 20:37; Admin Dose 100 MG; Start 09/26/16 at 09:00 Folic Acid (Folic Acid) 1 mg DAILY PO Last administered on 09/26/16 09:44; Admin Dose 1 MG; Start 09/26/16 at 09:00 Loratadine (Claritin) 10 mg DAILY PRN PO PRN; Start 09/26/16 at 01:00 Metoprolol Tartrate (Lopressor) 25 mg DAILY PO Last administered on 09/26/16 09:47; Admin Dose 25 MG; Start 09/26/16 at 09:00 Multivit/Ca Carb/ B Cmplx/FA/Prenat (Diandra-Svetlana) 1 tab DAILY PO Last administered on 09/26/16 09:44; Admin Dose 1 TAB; Start 09/26/16 at 09:00 Saxagliptin Hydrochloride (Onglyza) 2.5 mg Q2D@09 PO Last administered on 09:43; Admin Dose 2.5 MG; Start 09/26/16 at 09:00 Promethazine HCl/ Codeine (Phenergan/ Codeine) 5 ml DAILY PRN PO COUGH; Start 09/26/16 at 01:30 CAROL COHEN MD Sep 27, 2016 12:09
[2016-09-27] MEDS ORDERED: ALBUMIN HUMAN 25% 100 ML IV PRN (14:00)
[2016-09-27] MEDS: ATORVASTATIN 80 MG TAB PO SCH (21:29)
[2016-09-28] MEDS: ACCUCHECK XX SCH (02:00)
[2016-09-28] MEDS: LEVOTHYROXINE 50 MCG TAB PO SCH (05:46)
[2016-09-28] MEDS: PANTOPRAZOLE 40 MG INJ IV SCH (05:46)
[2016-09-28 07:18] VITALS: BP 108/53; RESP 20
[2016-09-28] MEDS: INSULIN ASPART [NOVOLOG] 3 ML PEN SC SCH ×4 (08:15→21:00)
[2016-09-28] MEDS: MULTIVIT/CA CARB/B CMPLX/FA TAB PO SCH (08:52)
[2016-09-28] MEDS: DOCUSATE SODIUM 100 MG CAP PO SCH ×2 (08:52→21:02)
[2016-09-28] MEDS: CALCIUM ACETATE 667 MG CAP PO SCH ×3 (08:52→17:44)
[2016-09-28] MEDS: FOLIC ACID 1 MG TAB PO SCH (08:53)
[2016-09-28] MEDS: ASPIRIN (EC) 81 MG TAB PO SCH (08:53)
[2016-09-28] MEDS: CHOLECALCIFEROL 1,000 UNIT TAB PO SCH (08:53)
[2016-09-28 08:55] LABS: ALBUMIN 3.4 g/dl (3.3-4.9); POTASSIUM 4.4 mmol/L (3.5-5.1)
[2016-09-28 08:57] LABS: BILIRUBIN,INDIRECT 0.2 mg/dl (0-1.1); BILIRUBIN,TOTAL 0.2 mg/dl (0.2-1.3)
[2016-09-28 08:58] LABS: ALBUMIN/GLOBULIN RATIO 1.06; CALCIUM 8.5 mg/dl (8.4-10.2); TOTAL PROTEIN 6.6 g/dl (6.1-8.1)
[2016-09-28] MEDS: METOPROLOL 25 MG TAB PO SCH (09:00)
[2016-09-28] MEDS: LINAGLIPTIN 5 MG TABLET PO SCH (09:31)
[2016-09-28] MEDS ORDERED: ACETAMINOPHEN 500 MG TAB PO PRN (12:30)
--- NOTE | 2016-09-28 14:39 | PN ---
Date/Time of Note Date/Time of Note DATE: 09/28/16 TIME: 14:38 Assessment/Plan VTE Prophylaxis VTE Prophylaxis Intervention: other Lines/Catheters IV Catheter Type (from Nrsg): Saline Lock Assessment/Plan Chief Complaint/Hosp Course MPRESSION: 1. Clotted AV graft. 2. ESRD. 3. Hypertension. 4. Diabetes mellitus. 5. Atherosclerotic heart disease. 6. History of breast cancer with mastectomy, left. 7. History of humerus fracture, left in the past. 8. History of compression fracture of the vertebra L1. 9. History of dyslipidemia. 10. History of CAD. 11. History of osteoporosis. [id number] declotting plan per vascular [id number] declottinig pending hd via rene yesterdayMPRESSION: [id number] sgy plan per vascular [id number] still pending avf placement Problems: Exam/Review of Systems Vital Signs Vitals Vital Signs Date Time Temp Pulse Resp B/P Pulse Ox O2 Delivery O2 Flow Rate FiO2 09/28/16 07:18 98.6 68 20 108/53 95 09/24/16 19:52 Room Air 09/24/16 16:42 2 Intake and Output 09/27/16 09/27/16 09/28/16 15:00 23:00 07:00 Intake Total 500 ml 120 ml Output Total 2500 ml Balance -2000 ml 120 ml Exam Constitutional: alert, oriented Psych: no complaints Head: normocephalic Eyes: nl conjunctiva Neck: supple Respiratory: clear to auscultation Cardiovascular: regular rate and rhythm Gastrointestinal: soft Musculoskeletal: nl extremities to inspection Results Result Diagram: 09/25/16 0755 09/28/16 0826 Results 24 hrs Laboratory Tests Test 09/27/16 17:43 09/27/16 21:31 09/28/16 07:38 09/28/16 08:26 Bedside Glucose 114 143 90 Alanine Aminotransferase (ALT/SGPT) 22 Albumin 3.4 Albumin/Globulin Ratio 1.06 Alkaline Phosphatase 81 Anion Gap 16 Aspartate Amino Transf (AST/SGOT) 21 Blood Urea Nitrogen 38 H Calcium Level 8.5 Carbon Dioxide Level 28 Chloride Level 98 Creatinine 2.00 H Direct Bilirubin 0.00 Globulin 3.20 Glucose Level 98 Indirect Bilirubin 0.2 Potassium Level 4.4 Sodium Level 138 Total Bilirubin 0.2 Total Protein 6.6 Test 09/28/16 11:56 Bedside Glucose 136 Medications Medications Current Medications Ondansetron HCl (Zofran Inj) 4 mg Q6H PRN IV NAUSEA AND/OR VOMITING; Start 05/31 at 17:00 Docusate Sodium (Colace) 100 mg Q12H PRN PO CONSTIPATION Last administered on 23:27; Admin Dose 100 MG; Start 09/24/16 at 17:00 Bisacodyl (Dulcolax) 5 mg DAILY PRN PO CONSTIPATION Last administered on 23:27; Admin Dose 5 MG; Start 09/24/16 at 17:00 Pantoprazole (Protonix Iv) 40 mg DAILY@06 IV Last administered on 09/28/16 05: 46; Admin Dose 40 MG; Start 09/25/16 at 06:00 Metoclopramide HCl (Reglan) 10 mg DAILY PRN PO NAUSEA AND/OR VOMITING; Start at 17:30 Atorvastatin Calcium (Lipitor) 80 mg HS PO Last administered on 09/27/16 21:29 ; Admin Dose 80 MG; Start 09/24/16 at 21:00 Diagnostic Test (Pha) (Accucheck) 1 ea 02 XX ; Start 09/25/16 at 02:00 Miscellaneous Information 1 ea NOTE XX ; Start 09/24/16 at 22:30 Glucose (Glutose) 15 gm Q15M PRN PO DECREASED GLUCOSE; Start 09/24/16 at 22:30 Glucose (Glutose) 22.5 gm Q15M PRN PO DECREASED GLUCOSE; Start 09/24/16 at 22: 30 Dextrose (D50w Syringe) 25 ml Q15M PRN IV DECREASED GLUCOSE; Start 09/24/16 at 22:30 Dextrose (D50w Syringe) 50 ml Q15M PRN IV DECREASED GLUCOSE; Start 09/24/16 at 22:30 Glucagon (Glucagen) 1 mg Q15M PRN IM DECREASED GLUCOSE; Start 09/24/16 at 22:30 Glucose (Glutose) 15 gm Q15M PRN BUCCAL DECREASED GLUCOSE; Start 09/24/16 at 22 :30 Aspirin (Halfprin) 81 mg DAILY PO Last administered on 09/28/16 08:53; Admin Dose 81 MG; Start 09/26/16 at 09:00 Cholecalciferol (Vitamin D) 1,000 unit DAILY PO Last administered on 09/28/16 08:53; Admin Dose 1,000 UNIT; Start 09/26/16 at 09:00 Docusate Sodium (Colace) 100 mg BID PO Last administered on 09/28/16 08:52; Admin Dose 100 MG; Start 09/26/16 at 09:00 Folic Acid (Folic Acid) 1 mg DAILY PO Last administered on 09/28/16 08:53; Admin Dose 1 MG; Start 09/26/16 at 09:00 Loratadine (Claritin) 10 mg DAILY PRN PO PRN; Start 09/26/16 at 01:00 Metoprolol Tartrate (Lopressor) 25 mg DAILY PO Last administered on 09/28/16 09:00; Admin Dose 25 MG; Start 09/26/16 at 09:00 Multivit/Ca Carb/ B Cmplx/FA/Prenat (Diandra-Svetlana) 1 tab DAILY PO Last administered on 09/28/16 08:52; Admin Dose 1 TAB; Start 09/26/16 at 09:00 Promethazine HCl/ Codeine (Phenergan/ Codeine) 5 ml DAILY PRN PO COUGH; Start 09/26/16 at 01:30 Linagliptin (Tradjenta) 5 mg DAILY PO Last administered on 09/28/16 09:31; Admin Dose 5 MG; Start 09/28/16 at 09:30 Acetaminophen (Tylenol Tab) 500 mg Q6H PRN PO PAIN AND OR ELEVATED TEMP; Start 09/28/16 at 12:30 Acetaminophen (Tylenol Tab) 1,000 mg Q6H PRN PO PAIN AND OR ELEVATED TEMP; Start 09/28/16 at 12:30 CAROL COHEN MD Sep 28, 2016 14:39
[2016-09-28 14:54] LABS: ALBUMIN 3.3 g/dl (3.3-4.9)
[2016-09-28 14:55] LABS: POTASSIUM 4.9 mmol/L (3.5-5.1)
[2016-09-28 14:57] LABS: ALBUMIN/GLOBULIN RATIO 1.1; BILIRUBIN,INDIRECT 0.1 mg/dl (0-1.1); BILIRUBIN,TOTAL 0.1 mg/dl (0.2-1.3); CREATININE 2.21 mg/dl (0.44-1.00); TOTAL PROTEIN 6.3 g/dl (6.1-8.1)
[2016-09-28 14:58] LABS: CALCIUM 8.4 mg/dl (8.4-10.2)
[2016-09-28 20:06] VITALS: BP 134/60; RESP 20
[2016-09-28] MEDS: ATORVASTATIN 80 MG TAB PO SCH (21:02)
[2016-09-28] MEDS: ACETAMINOPHEN 500 MG TAB PO PRN (21:02)
[2016-09-29] VITALS (15 sets, daily range): BP systolic 88–131; BP diastolic 43–62; PULSE 67–99; RESP 18–26
[2016-09-29] MEDS: ACCUCHECK XX SCH (02:00)
[2016-09-29] MEDS: PANTOPRAZOLE 40 MG INJ IV SCH (06:15)
[2016-09-29] MEDS: LEVOTHYROXINE 50 MCG TAB PO SCH (06:16)
[2016-09-29] MEDS: ACETAMINOPHEN 500 MG TAB PO PRN (08:00)
[2016-09-29] MEDS: CALCIUM ACETATE 667 MG CAP PO SCH ×3 (08:00→20:29)
[2016-09-29] MEDS: DOCUSATE SODIUM 100 MG CAP PO SCH ×2 (09:00→20:29)
[2016-09-29] MEDS: ASPIRIN (EC) 81 MG TAB PO SCH (09:00)
[2016-09-29] MEDS: METOPROLOL 25 MG TAB PO SCH (09:00)
[2016-09-29] MEDS: INSULIN ASPART [NOVOLOG] 3 ML PEN SC SCH ×4 (09:17→20:32)
[2016-09-29] MEDS: FOLIC ACID 1 MG TAB PO SCH (09:18)
[2016-09-29] MEDS: LINAGLIPTIN 5 MG TABLET PO SCH (09:19)
[2016-09-29] MEDS: CHOLECALCIFEROL 1,000 UNIT TAB PO SCH (09:19)
[2016-09-29] MEDS: MULTIVIT/CA CARB/B CMPLX/FA TAB PO SCH (09:19)
[2016-09-29] MEDS ORDERED: ALBUMIN HUMAN 25% 100 ML IV PRN (12:30)
[2016-09-29] MEDS ORDERED: HEPARIN 1000 UNITS/ML 10 ML INJ CATHETER SCH (12:30)
[2016-09-29] MEDS ORDERED: HEPARIN 1000 UNITS/ML 10 ML INJ ONE ×2 (17:10→18:38)
[2016-09-29] MEDS ORDERED: BUPIVACAINE 0.25% (MPF) 30 ML INJ ONE (17:10)
[2016-09-29] MEDS ORDERED: LIDOCAINE 1% (STERILE-PAK) 30 ML INJ ONE (17:10)
[2016-09-29] MEDS ORDERED: IOHEXOL 300MG/ML 30 ML BTL ONE (17:10)
[2016-09-29] MEDS ORDERED: PROPOFOL 20 ML ONE ×3 (17:42→18:57)
[2016-09-29] MEDS ORDERED: FENTAnyl 50 MCG/ML VIAL ONE (17:43)
[2016-09-29] MEDS ORDERED: METOCLOPRAMIDE 10 MG INJ ONE (17:43)
[2016-09-29] MEDS ORDERED: EPHEDrine SULFATE 50 MG/5 ML SYG ONE (18:03)
[2016-09-29] MEDS ORDERED: ONDANSETRON 4 MG INJ IV PRN (18:30)
[2016-09-29] MEDS ORDERED: OXYCODONE/ACETAMINOPHEN (5/325) TAB PO PRN ×2 (18:30)
[2016-09-29] MEDS ORDERED: HYDROmorphONE (0.2 MG/ML) 10ML SYG IV PRN ×3 (18:30)
[2016-09-29] MEDS ORDERED: CEFAZOLIN 1 GM INJ ONE (18:36)
--- NOTE | 2016-09-29 19:08 | PN ---
Date/Time of Note Date/Time of Note DATE: 09/29/16 TIME: 19:07 Assessment/Plan VTE Prophylaxis VTE Prophylaxis Intervention: other Lines/Catheters IV Catheter Type (from Nrsg): Assessment/Plan Chief Complaint/Hosp Course MPRESSION: 1. Clotted AV graft. 2. ESRD. 3. Hypertension. 4. Diabetes mellitus. 5. Atherosclerotic heart disease. 6. History of breast cancer with mastectomy, left. 7. History of humerus fracture, left in the past. 8. History of compression fracture of the vertebra L1. 9. History of dyslipidemia. 10. History of CAD. 11. History of osteoporosis. [id number] declotting plan per vascular [id number] declottinig pending hd via rene yesterdayMPRESSION: [id number] sgy plan per vascular [id number] still pending avf placement [id number] quintion not working optimally possible drclotting today Problems: Subjective 24 Hr Interval Summary Constitutional: no complaints Exam/Review of Systems Vital Signs Vitals Vital Signs Date Time Temp Pulse Resp B/P Pulse Ox O2 Delivery O2 Flow Rate FiO2 09/29/16 14:30 79 18 09/29/16 07:50 98.5 131/62 94 Intake and Output 09/28/16 09/28/16 09/29/16 15:00 23:00 07:00 Intake Total 600 ml 120 ml Balance 600 ml 120 ml Exam Constitutional: alert, oriented Psych: no complaints Head: normocephalic Eyes: nl conjunctiva Neck: supple Cardiovascular: regular rate and rhythm Gastrointestinal: soft Results Result Diagram: 09/25/16 0755 09/28/16 1430 Results 24 hrs Laboratory Tests Test 09/28/16 21:34 09/29/16 07:50 09/29/16 12:06 09/29/16 16:53 Bedside Glucose 110 114 98 106 Medications Medications Current Medications Ondansetron HCl (Zofran Inj) 4 mg Q6H PRN IV NAUSEA AND/OR VOMITING; Start 05/31 at 17:00 Docusate Sodium (Colace) 100 mg Q12H PRN PO CONSTIPATION Last administered on 23:27; Admin Dose 100 MG; Start 09/24/16 at 17:00 Bisacodyl (Dulcolax) 5 mg DAILY PRN PO CONSTIPATION Last administered on 23:27; Admin Dose 5 MG; Start 09/24/16 at 17:00 Metoclopramide HCl (Reglan) 10 mg DAILY PRN PO NAUSEA AND/OR VOMITING; Start at 17:30 Atorvastatin Calcium (Lipitor) 80 mg HS PO Last administered on 09/28/16 21:02 ; Admin Dose 80 MG; Start 09/24/16 at 21:00 Diagnostic Test (Pha) (Accucheck) 1 ea 02 XX ; Start 09/25/16 at 02:00 Miscellaneous Information 1 ea NOTE XX ; Start 09/24/16 at 22:30 Glucose (Glutose) 15 gm Q15M PRN PO DECREASED GLUCOSE; Start 09/24/16 at 22:30 Glucose (Glutose) 22.5 gm Q15M PRN PO DECREASED GLUCOSE; Start 09/24/16 at 22: 30 Dextrose (D50w Syringe) 25 ml Q15M PRN IV DECREASED GLUCOSE; Start 09/24/16 at 22:30 Dextrose (D50w Syringe) 50 ml Q15M PRN IV DECREASED GLUCOSE; Start 09/24/16 at 22:30 Glucagon (Glucagen) 1 mg Q15M PRN IM DECREASED GLUCOSE; Start 09/24/16 at 22:30 Glucose (Glutose) 15 gm Q15M PRN BUCCAL DECREASED GLUCOSE; Start 09/24/16 at 22 :30 Aspirin (Halfprin) 81 mg DAILY PO Last administered on 09/28/16 08:53; Admin Dose 81 MG; Start 09/26/16 at 09:00 Cholecalciferol (Vitamin D) 1,000 unit DAILY PO Last administered on 09/29/16 09:19; Admin Dose 1,000 UNIT; Start 09/26/16 at 09:00 Docusate Sodium (Colace) 100 mg BID PO Last administered on 09/28/16 21:02; Admin Dose 100 MG; Start 09/26/16 at 09:00 Folic Acid (Folic Acid) 1 mg DAILY PO Last administered on 09/29/16 09:18; Admin Dose 1 MG; Start 09/26/16 at 09:00 Loratadine (Claritin) 10 mg DAILY PRN PO PRN; Start 09/26/16 at 01:00 Metoprolol Tartrate (Lopressor) 25 mg DAILY PO Last administered on 09/28/16 09:00; Admin Dose 25 MG; Start 09/26/16 at 09:00 Multivit/Ca Carb/ B Cmplx/FA/Prenat (Diandra-Svetlana) 1 tab DAILY PO Last administered on 09/29/16 09:19; Admin Dose 1 TAB; Start 09/26/16 at 09:00 Promethazine HCl/ Codeine (Phenergan/ Codeine) 5 ml DAILY PRN PO COUGH; Start 09/26/16 at 01:30 Linagliptin (Tradjenta) 5 mg DAILY PO Last administered on 09/29/16 09:19; Admin Dose 5 MG; Start 09/28/16 at 09:30 Acetaminophen (Tylenol Tab) 500 mg Q6H PRN PO PAIN AND OR ELEVATED TEMP; Start 09/28/16 at 12:30 Acetaminophen (Tylenol Tab) 1,000 mg Q6H PRN PO PAIN AND OR ELEVATED TEMP Last administered on 09/29/16 08:00; Admin Dose 1,000 MG; Start 09/28/16 at 12:30 Pantoprazole (Protonix Tab) 40 mg DAILY@06 PO ; Start 09/30/16 at 06:00 CAROL COHEN MD Sep 29, 2016 19:08
[2016-09-29] MEDS: ATORVASTATIN 80 MG TAB PO SCH (20:29)
--- NOTE | 2016-09-29 21:16 | OPR ---
DATE OF OPERATION: PREOPERATIVE DIAGNOSIS: Clotted right upper extremity arteriovenous fistula. POSTOPERATIVE DIAGNOSIS: Clotted right upper extremity arteriovenous fistula. OPERATION PERFORMED: 1. Thrombectomy, right AV fistula. 2. Right basilic vein angioplasty 8 x 40 mm balloon. 3. Central venogram. 4. Interpretation and supervision of the angioplasty. SURGEON: Kael Lindsey MD ANESTHESIA: Local. CONSENT: Risks, benefits, complications, alternative therapies explained to the patient and the [facility] neena, consent obtained. OPERATIVE TECHNIQUE: The patient was placed in supine position, prepped and draped in usual sterile fashion, 1% lidocaine was used throughout the operation for local anesthesia. A time-out was valdes d, antibiotic was given and I started. I made a 1 cm incision over the mid aspect of the fistula. An incision was taken down to the subcutaneous tissue which was then opened using electrocautery. T he fistula was identified. Vesseloops were passed around it. It was then opened in a horizontal fa shion. The thrombectomy of the arterial and the venous limb of the fistula was performed using a 4- [place] Art catheter. The angiogram was done which showed patent arterial anastomosis. There wa s a stent in the venous limb of the graft which had a 90% stenosis, which was then angioplastied ove r an 0.035 guidewire with 8 x 40 mm balloon after giving the patient 5000 units of IV heparin. The graft was then closed using 6-0 Prolene in a continuous fashion. The wound was irrigated and closed in 2 layers of 3-0 Vicryl suture for the deep and 3-0 Vicryl suture for running subcuticular skin c losure. Patient tolerated procedure well. Dictated By: KAEL BOWERS/NTS Conf#: [id number] DID#: [id number]
[2016-09-30] MEDS: ACCUCHECK XX SCH (01:47)
[2016-09-30 06:26] LABS: POTASSIUM 4.7 mmol/L (3.5-5.1)
[2016-09-30 06:28] LABS: CREATININE 2.09 mg/dl (0.44-1.00)
[2016-09-30 06:29] LABS: ALBUMIN/GLOBULIN RATIO 1.11; CALCIUM 8.3 mg/dl (8.4-10.2); TOTAL PROTEIN 5.7 g/dl (6.1-8.1)
[2016-09-30] MEDS: PANTOPRAZOLE (EC) 40 MG TAB PO SCH (06:35)
[2016-09-30] MEDS: ACETAMINOPHEN 500 MG TAB PO PRN ×2 (06:35→20:37)
[2016-09-30] MEDS: LEVOTHYROXINE 50 MCG TAB PO SCH (06:35)
[2016-09-30 07:27] VITALS: BP 113/56; RESP 22
[2016-09-30] MEDS: INSULIN ASPART [NOVOLOG] 3 ML PEN SC SCH ×4 (07:59→20:33)
[2016-09-30] MEDS: CALCIUM ACETATE 667 MG CAP PO SCH ×3 (08:14→18:19)
[2016-09-30] MEDS: FOLIC ACID 1 MG TAB PO SCH (08:14)
[2016-09-30] MEDS: DOCUSATE SODIUM 100 MG CAP PO SCH ×2 (08:14→20:32)
[2016-09-30] MEDS: MULTIVIT/CA CARB/B CMPLX/FA TAB PO SCH (08:15)
[2016-09-30] MEDS: CHOLECALCIFEROL 1,000 UNIT TAB PO SCH (08:15)
[2016-09-30] MEDS: LINAGLIPTIN 5 MG TABLET PO SCH (08:15)
[2016-09-30] MEDS: ASPIRIN (EC) 81 MG TAB PO SCH (08:15)
[2016-09-30] MEDS: METOPROLOL 25 MG TAB PO SCH (08:16)
--- NOTE | 2016-09-30 09:45 | PN ---
Date/Time of Note Date/Time of Note DATE: 09/30/16 TIME: 09:42 Assessment/Plan Lines/Catheters IV Catheter Type [facility]from [facility]): Saline Lock Assessment/Plan Chief Complaint/Hosp Course -End-stage renal disease: Due to the patient's fistula may have areas of stenosis, my concern is that she may have central stenosis. The fistula seems to be more pulsatile and had bruit and thrill. S/P Barrera catheter. S/P thrombectomy. -May use RUE AVF and if tolerates HD well can remove the Barrera catheter -Discussed optimization of vascular status (BP meds, diet, nutrition, exercise, sugar control, antiplatelets). -Discussed findings, plan and management with the patient and she understands. -Thank you for allowing us to participate in the care of your patient. Please call with any questions. Problems: Subjective 24 Hr Interval Summary no new vascular events overnight, s/p thrombectomy Exam/Review of Systems Vital Signs Vitals Vital Signs Date Time Temp Pulse Resp B/P Pulse Ox O2 Delivery O2 Flow Rate FiO2 09/30/16 07:27 98.2 72 22 113/56 100 09/29/16 19:39 Room Air Intake and Output 09/29/16 09/29/16 09/30/16 15:00 23:00 07:00 Intake Total 700 ml 390 ml 240 ml Output Total 1800 ml 150 ml Balance -1100 ml 240 ml 240 ml Exam Free Text/Dictation GENERAL: Alert and oriented x3, PULMONARY: Clear to auscultation bilaterally CARDIOVASCULAR: S1, S2 present ABDOMEN: Soft, nontender, nondistended. Bowel sounds positive. EXTREMITIES: Right lower extremity palpable femoral pulse, nonpalpable pedal pulse. Motor, sensory intact. Capillary refill 3 seconds. No ulcers identified. Left lower extremity palpable femoral pulse, nonpalpable pedal pulse. Motor, sensory intact. Capillary refill 3 seconds. No ulcers or edema identified. Right upper extremity palpable brachial pulse. Motor, sensory intact. Capillary refill 2 seconds. Fistula that seems to be brachiobasilic with bruit and thrill. Dressing intact and dry Results Result Diagram: 09/30/16 0520 HASMUKH CALDWELL MD Sep 30, 2016 09:45
--- NOTE | 2016-09-30 15:32 | PN ---
Date/Time of Note Date/Time of Note DATE: 09/30/16 TIME: 15:31 Assessment/Plan VTE Prophylaxis VTE Prophylaxis Intervention: other Lines/Catheters IV Catheter Type (from Nrs): Saline Lock Reason Cath still needed: other (indicate) Assessment/Plan Chief Complaint/Hosp Course IMPRESSION: 1. Clotted AV graft.S/P REVISION 2. ESRD. 3. Hypertension. 4. Diabetes mellitus. 5. Atherosclerotic heart disease. 6. History of breast cancer with mastectomy, left. 7. History of humerus fracture, left in the past. 8. History of compression fracture of the vertebra L1. 9. History of dyslipidemia. 10. History of CAD. 11. History of osteoporosis. PLAN HD AM Problems: Subjective 24 Hr Interval Summary Respiratory: no complaints Cardiovascular: no complaints Exam/Review of Systems Vital Signs Vitals Vital Signs Date Time Temp Pulse Resp B/P Pulse Ox O2 Delivery O2 Flow Rate FiO2 09/30/16 07:27 98.2 72 22 113/56 100 09/29/16 19:39 Room Air Intake and Output 09/29/16 09/29/16 09/30/16 15:00 23:00 07:00 Intake Total 700 ml 390 ml 240 ml Output Total 1800 ml 150 ml Balance -1100 ml 240 ml 240 ml Exam Respiratory: clear to auscultation Cardiovascular: regular rate and rhythm Gastrointestinal: soft Musculoskeletal: nl extremities to inspection Extremities: normal pulses Results Result Diagram: 09/30/16 0520 Results 24 hrs Laboratory Tests Test 09/29/16 16:53 09/29/16 20:31 09/30/16 05:20 09/30/16 07:49 Bedside Glucose 106 119 108 Alanine Aminotransferase (ALT/SGPT) 24 Albumin 3.0 L Albumin/Globulin Ratio 1.11 Alkaline Phosphatase 66 Anion Gap 16 Aspartate Amino Transf (AST/SGOT) 30 Blood Urea Nitrogen 48 H Calcium Level 8.3 L Carbon Dioxide Level 27 Chloride Level 101 Creatinine 2.09 H Direct Bilirubin 0.00 Globulin 2.70 Glucose Level 132 Indirect Bilirubin 0.0 Potassium Level 4.7 Sodium Level 139 Total Bilirubin 0.0 L Total Protein 5.7 L Test 09/30/16 12:00 Bedside Glucose 148 Medications Medications Current Medications Ondansetron HCl (Zofran Inj) 4 mg Q6H PRN IV NAUSEA AND/OR VOMITING; Start 05/31 at 17:00 Docusate Sodium (Colace) 100 mg Q12H PRN PO CONSTIPATION Last administered on 23:27; Admin Dose 100 MG; Start 09/24/16 at 17:00 Bisacodyl (Dulcolax) 5 mg DAILY PRN PO CONSTIPATION Last administered on 23:27; Admin Dose 5 MG; Start 09/24/16 at 17:00 Metoclopramide HCl (Reglan) 10 mg DAILY PRN PO NAUSEA AND/OR VOMITING; Start at 17:30 Atorvastatin Calcium (Lipitor) 80 mg HS PO Last administered on 09/29/16 20:29 ; Admin Dose 80 MG; Start 09/24/16 at 21:00 Diagnostic Test (Pha) (Accucheck) 1 ea 02 XX ; Start 09/25/16 at 02:00 Miscellaneous Information 1 ea NOTE XX ; Start 09/24/16 at 22:30 Glucose (Glutose) 15 gm Q15M PRN PO DECREASED GLUCOSE; Start 09/24/16 at 22:30 Glucose (Glutose) 22.5 gm Q15M PRN PO DECREASED GLUCOSE; Start 09/24/16 at 22: 30 Dextrose (D50w Syringe) 25 ml Q15M PRN IV DECREASED GLUCOSE; Start 09/24/16 at 22:30 Dextrose (D50w Syringe) 50 ml Q15M PRN IV DECREASED GLUCOSE; Start 09/24/16 at 22:30 Glucagon (Glucagen) 1 mg Q15M PRN IM DECREASED GLUCOSE; Start 09/24/16 at 22:30 Glucose (Glutose) 15 gm Q15M PRN BUCCAL DECREASED GLUCOSE; Start 09/24/16 at 22 :30 Aspirin (Halfprin) 81 mg DAILY PO Last administered on 09/30/16 08:15; Admin Dose 81 MG; Start 09/26/16 at 09:00 Cholecalciferol (Vitamin D) 1,000 unit DAILY PO Last administered on 09/30/16 08:15; Admin Dose 1,000 UNIT; Start 09/26/16 at 09:00 Docusate Sodium (Colace) 100 mg BID PO Last administered on 09/30/16 08:14; Admin Dose 100 MG; Start 09/26/16 at 09:00 Folic Acid (Folic Acid) 1 mg DAILY PO Last administered on 09/30/16 08:14; Admin Dose 1 MG; Start 09/26/16 at 09:00 Loratadine (Claritin) 10 mg DAILY PRN PO PRN; Start 09/26/16 at 01:00 Metoprolol Tartrate (Lopressor) 25 mg DAILY PO Last administered on 09/30/16 08:16; Admin Dose 25 MG; Start 09/26/16 at 09:00 Multivit/Ca Carb/ B Cmplx/FA/Prenat (Diandra-Svetlana) 1 tab DAILY PO Last administered on 09/30/16 08:15; Admin Dose 1 TAB; Start 09/26/16 at 09:00 Promethazine HCl/ Codeine (Phenergan/ Codeine) 5 ml DAILY PRN PO COUGH; Start 09/26/16 at 01:30 Linagliptin (Tradjenta) 5 mg DAILY PO Last administered on 09/30/16 08:15; Admin Dose 5 MG; Start 09/28/16 at 09:30 Acetaminophen (Tylenol Tab) 500 mg Q6H PRN PO PAIN AND OR ELEVATED TEMP; Start 09/28/16 at 12:30 Acetaminophen (Tylenol Tab) 1,000 mg Q6H PRN PO PAIN AND OR ELEVATED TEMP Last administered on 09/30/16 06:35; Admin Dose 1,000 MG; Start 09/28/16 at 12:30 Pantoprazole (Protonix Tab) 40 mg DAILY@06 PO Last administered on 09/30/16 06 :35; Admin Dose 40 MG; Start 09/30/16 at 06:00 BRANDON MITCHELL MD Sep 30, 2016 15:32
--- NOTE | 2016-09-30 18:07 | RADRPT ---
PROCEDURE: Intraoperative imaging of the right upper extremity with fluoroscopy. CLINICAL INDICATION: Dialysis fistula malfunction. Intraoperative. TECHNIQUE: 6 images of the right humerus region were obtained in the operating room with an image intensifier. No radiologist was in attendance. 33.6 seconds of fluoroscopy time was used. COMPARISON: No prior study is available for comparison. FINDINGS: Images demonstrate surgical instruments overlying the right humerus. Contrast was injected into the venous system demonstrating thrombus. Subsequent images demonstrate a balloon venoplasty and guide wire. IMPRESSION: 1. Intraoperative imaging of the right upper extremity. RPTAT: QQ .Christopher Solorzano MD, MD Date Time Electronically viewed and signed by .Christopher Solorzano MD, on 09/30/2016 18:06 .R/
[2016-09-30 20:21] VITALS: BP 124/58; RESP 20
[2016-09-30] MEDS: ATORVASTATIN 80 MG TAB PO SCH (20:32)
[2016-10-01] VITALS (8 sets, daily range): BP systolic 98–115; BP diastolic 50–59; PULSE 77–82; RESP 18
[2016-10-01] MEDS: ACCUCHECK XX SCH (02:00)
[2016-10-01] MEDS: PANTOPRAZOLE (EC) 40 MG TAB PO SCH (05:47)
[2016-10-01] MEDS: LEVOTHYROXINE 50 MCG TAB PO SCH (05:48)
[2016-10-01] MEDS: ACETAMINOPHEN 500 MG TAB PO PRN (05:51)
[2016-10-01] MEDS: INSULIN ASPART [NOVOLOG] 3 ML PEN SC SCH ×2 (08:15→12:05)
[2016-10-01] MEDS: METOPROLOL 25 MG TAB PO SCH (09:00)
[2016-10-01] MEDS: DOCUSATE SODIUM 100 MG CAP PO SCH (09:29)
[2016-10-01] MEDS: FOLIC ACID 1 MG TAB PO SCH (09:29)
[2016-10-01] MEDS: CHOLECALCIFEROL 1,000 UNIT TAB PO SCH (09:29)
[2016-10-01] MEDS: CALCIUM ACETATE 667 MG CAP PO SCH ×2 (09:29→12:07)
[2016-10-01] MEDS: MULTIVIT/CA CARB/B CMPLX/FA TAB PO SCH (09:29)
[2016-10-01] MEDS: LINAGLIPTIN 5 MG TABLET PO SCH (09:29)
[2016-10-01] MEDS: ASPIRIN (EC) 81 MG TAB PO SCH (09:29)
--- NOTE | 2016-10-01 11:27 | PDOCDIS ---
Discharge Instructions CONDITION Patient Condition: Stable HOME CARE INSTRUCTIONS: Special Diet: renal / ada diet ACTIVITY: Activity Restrictions: Slowly Increase Activity FOLLOW UP/APPOINTMENTS Appointments f/u dr bradford 10 days f/u dr mitchell 3 wks BRANDON MITCHELL MD Oct 01, 2016 11:27
--- NOTE | 2016-10-01 13:49 | PN ---
Date/Time of Note Date/Time of Note DATE: 10/01/16 TIME: 13:48 Assessment/Plan VTE Prophylaxis VTE Prophylaxis Intervention: other Lines/Catheters IV Catheter Type (from Nrs): Saline Lock Assessment/Plan Chief Complaint/Hosp Course IMPRESSION: 1. Clotted AV graft.S/P REVISION 2. ESRD. 3. Hypertension. 4. Diabetes mellitus. 5. Atherosclerotic heart disease. 6. History of breast cancer with mastectomy, left. 7. History of humerus fracture, left in the past. 8. History of compression fracture of the vertebra L1. 9. History of dyslipidemia. 10. History of CAD. 11. History of osteoporosis. PLAN HD home Problems: Subjective 24 Hr Interval Summary Cardiovascular: no complaints Gastrointestinal: no complaints Exam/Review of Systems Vital Signs Vitals Vital Signs Date Time Temp Pulse Resp B/P Pulse Ox O2 Delivery O2 Flow Rate FiO2 10/01/16 08:08 98.3 82 18 106/59 95 09/29/16 19:39 Room Air Intake and Output 09/30/16 09/30/16 10/01/16 15:00 23:00 07:00 Intake Total 480 ml 240 ml Balance 480 ml 240 ml Exam Neck: supple Respiratory: clear to auscultation Cardiovascular: regular rate and rhythm Gastrointestinal: soft Musculoskeletal: nl extremities to inspection Extremities: normal pulses Results Result Diagram: 09/30/16 0520 Results 24 hrs Laboratory Tests Test 09/30/16 16:55 09/30/16 20:31 10/01/16 08:00 10/01/16 12:01 Bedside Glucose 138 115 97 225 H Medications Medications Current Medications Ondansetron HCl (Zofran Inj) 4 mg Q6H PRN IV NAUSEA AND/OR VOMITING; Start 05/31 at 17:00 Docusate Sodium (Colace) 100 mg Q12H PRN PO CONSTIPATION Last administered on 23:27; Admin Dose 100 MG; Start 09/24/16 at 17:00 Bisacodyl (Dulcolax) 5 mg DAILY PRN PO CONSTIPATION Last administered on 23:27; Admin Dose 5 MG; Start 09/24/16 at 17:00 Metoclopramide HCl (Reglan) 10 mg DAILY PRN PO NAUSEA AND/OR VOMITING; Start at 17:30 Atorvastatin Calcium (Lipitor) 80 mg HS PO Last administered on 09/30/16 20:32 ; Admin Dose 80 MG; Start 09/24/16 at 21:00 Diagnostic Test (Pha) (Accucheck) 1 ea 02 XX ; Start 09/25/16 at 02:00 Miscellaneous Information 1 ea NOTE XX ; Start 09/24/16 at 22:30 Glucose (Glutose) 15 gm Q15M PRN PO DECREASED GLUCOSE; Start 09/24/16 at 22:30 Glucose (Glutose) 22.5 gm Q15M PRN PO DECREASED GLUCOSE; Start 09/24/16 at 22: 30 Dextrose (D50w Syringe) 25 ml Q15M PRN IV DECREASED GLUCOSE; Start 09/24/16 at 22:30 Dextrose (D50w Syringe) 50 ml Q15M PRN IV DECREASED GLUCOSE; Start 09/24/16 at 22:30 Glucagon (Glucagen) 1 mg Q15M PRN IM DECREASED GLUCOSE; Start 09/24/16 at 22:30 Glucose (Glutose) 15 gm Q15M PRN BUCCAL DECREASED GLUCOSE; Start 09/24/16 at 22 :30 Aspirin (Halfprin) 81 mg DAILY PO Last administered on 10/01/16 09:29; Admin Dose 81 MG; Start 09/26/16 at 09:00 Cholecalciferol (Vitamin D) 1,000 unit DAILY PO Last administered on 10/01/16 09:29; Admin Dose 1,000 UNIT; Start 09/26/16 at 09:00 Docusate Sodium (Colace) 100 mg BID PO Last administered on 10/01/16 09:29; Admin Dose 100 MG; Start 09/26/16 at 09:00 Folic Acid (Folic Acid) 1 mg DAILY PO Last administered on 10/01/16 09:29; Admin Dose 1 MG; Start 09/26/16 at 09:00 Loratadine (Claritin) 10 mg DAILY PRN PO PRN; Start 09/26/16 at 01:00 Metoprolol Tartrate (Lopressor) 25 mg DAILY PO Last administered on 09/30/16 08:16; Admin Dose 25 MG; Start 09/26/16 at 09:00 Multivit/Ca Carb/ B Cmplx/FA/Prenat (Diandra-Svetlana) 1 tab DAILY PO Last administered on 2/17/17at 09:29; Admin Dose 1 TAB; Start 09/26/16 at 09:00 Promethazine HCl/ Codeine (Phenergan/ Codeine) 5 ml DAILY PRN PO COUGH; Start 09/26/16 at 01:30 Linagliptin (Tradjenta) 5 mg DAILY PO Last administered on 10/01/16 09:29; Admin Dose 5 MG; Start 09/28/16 at 09:30 Acetaminophen (Tylenol Tab) 500 mg Q6H PRN PO PAIN AND OR ELEVATED TEMP; Start 09/28/16 at 12:30 Acetaminophen (Tylenol Tab) 1,000 mg Q6H PRN PO PAIN AND OR ELEVATED TEMP Last administered on 10/01/16 05:51; Admin Dose 1,000 MG; Start 09/28/16 at 12:30 Pantoprazole (Protonix Tab) 40 mg DAILY@06 PO Last administered on 10/01/16 05 :47; Admin Dose 40 MG; Start 09/30/16 at 06:00 BRANDON MITCHELL MD Oct 01, 2016 13:49
--- NOTE | 2016-10-03 21:11 | QN ---
Documentation Comment [id number] BRANDON MITCHELL MD Oct 03, 2016 21:11
--- NOTE | 2016-10-04 03:22 | DS ---
DATE OF ADMISSION: 09/27/2016 DATE OF DISCHARGE: 10/01/2016 HOSPITAL COURSE: The patient was admitted with clotted AV graft and was seen by Dr. Hakeem Connor in consultation and Dr. Lindsey. The patient has right common femoral vein on non-tunneled dialysis catheter placed. Dr. Lindsey also saw this patient in consultation. The patient underwent thrombectomy of the right upper extremity AV fistula, right basilic vein angioplasty, and dilatation contrast venography. The patient underwent hemodialysis. Groin catheter was removed, and the patient is stable to be discharged home. DISCHARGE DIAGNOSES: 1. Clotted right upper AV fistula. 2. Placement of right common femoral catheter and removal. 3. End-stage renal disease. 4. Hypertension. 5. Diabetes mellitus. 6. Coronary artery disease. 7. Atherosclerotic heart disease. 8. Dyslipidemia. 9. History of arthritis. 10. Degenerative joint disease. 11. Osteoporosis. DISCHARGE MEDICATIONS: Continue 1. Aspirin. 2. PhosLo. 3. Vitamin D. 4. Colace. 5. Folic acid. 6. Levothyroxine. 7. Neurontin. 8. Metoclopramide. 9. Metoprolol. 10. Multiple vitamins. 11. Protonix. 12. Promethazine with codeine p.r.n. 13. Crestor. 14. Onglyza. FOLLOWUP: The patient is to follow with me and Dr. gonzalez_ as an outpatient. DISPOSITION: The patient is stable at the time of discharge._ hemodialysis during this hospitalization. Dictated By: BRANDON CHRISTIE/CHRISTI Conf#: [id number] DID#: [id number] MTDD
== END 2016-10-01 16:15 | disposition home or self-care (01) | DRG 252 ==
LOC: E/R 16:05 → MS2 17:59 → OBSVTOIN 09-27 13:15
PROVIDERS: ADMIT Internal Medicine Nephrology; ATTEND Internal Medicine Nephrology
PROC: 06HM33Z Insertion of Infusion Device into Right Femoral Vein, Percutaneous Approach (ICD-10-PCS; 2016-09-25)
PROC: 5A1D60Z (ICD-10-PCS; 2016-09-25)
PROC: 03CY0ZZ Extirpation of Matter from Upper Artery, Open Approach (ICD-10-PCS; 2016-09-29)
PROC: 057B0ZZ Dilation of Right Basilic Vein, Open Approach (ICD-10-PCS; principal; 2016-09-29 17:00)
DX: T82.868A Thrombosis due to vascular prosthetic devices, implants and grafts, initial encounter (principal); N18.6 End stage renal disease; I12.0 Hypertensive chronic kidney disease with stage 5 chronic kidney disease or end stage renal disease; E11.9 Type 2 diabetes mellitus without complications; Z99.2 Dependence on renal dialysis; I25.10 Atherosclerotic heart disease of native coronary artery without angina pectoris; E78.5 Hyperlipidemia, unspecified; I70.203 Unspecified atherosclerosis of native arteries of extremities, bilateral legs
CPT/HCPCS: 71010; 80048; 80053; 82962; 85025; 85610; 85730; 88304; 90935; 93005; 93931; C9113; G0378; J0690; J1644; J1815; J2765; J2997; J3010; Q9967

== ENCOUNTER 2017-01-11 05:54 | Emergency (ER) | payer MEDICARE, OTHER ==
[~2017-01-11] VITALS: Ht 163.8 cm; Wt 59.1 kg
[~2017-01-11 05:54] MED LIST changes: +ASPI-664 PO; +CALC667T2 PO; +CHOL10009 PO; +DOCU-144 PO; +FOLI-49 PO; -HYDR-3671 PO; +LORA10TA3 PO; -MELO7.5O PO; +METO-448 PO; +NEPH PO; +PROM5SYR2 PO; +SAXA2.5T PO
[2017-01-11 05:58] VITALS: Ht 163.8 cm; Wt 59.1 kg
[2017-01-11 07:20] LABS: ADD SCAN DIFF NO
[2017-01-11 07:23] LABS: BASOPHILS % 0.4 % (0.0-2.0); EOSINOPHILS # 0.2 10^3/ul (0.0-0.5); HEMATOCRIT 33.6 % (37.0-47.0); HEMOGLOBIN 11.1 g/dl (12.0-16.0); LYMPHOCYTES # 1.2 10^3/ul (0.8-2.9); MEAN CORPUSCULAR HEMOGLOBIN 33.8 pg (29.0-33.0); MEAN CORPUSCULAR VOLUME 102.4 fl (82.0-101.0); MEAN PLATELET VOLUME 9.8 fl (7.4-10.4); MONOCYTE # 0.9 10^3/ul (0.3-0.9); MONOCYTES % 11.3 % (0.0-11.0); NEUTROPHIL # 5.5 10^3/ul (1.6-7.5); NEUTROPHILS % 69.9 % (39.0-77.0); PLATELET COUNT 234 10^3/UL (140-415); RED BLOOD COUNT 3.28 10^6/ul (4.20-5.40); RED CELL DISTRIBUTION WIDTH 13.9 % (11.5-14.5); WHITE BLOOD COUNT 7.8 10^3/ul (4.8-10.8)
[2017-01-11 07:49] LABS: INR 0.9; PROTIME 12.1 Sec (12.2-14.2); PT RATIO 0.9
[2017-01-11 07:50] LABS: ALBUMIN 4.3 g/dl (3.3-4.9); ALBUMIN/GLOBULIN RATIO 1.13; BILIRUBIN,INDIRECT 0.2 mg/dl (0-1.1); BILIRUBIN,TOTAL 0.2 mg/dl (0.2-1.3); CREATININE 1.96 mg/dl (0.44-1.00); PARTIAL THROMBOPLASTIN TIME 27.7 Sec (25.0-35.0); POTASSIUM 5.1 mmol/L (3.5-5.1); TOTAL PROTEIN 8.1 g/dl (6.1-8.1)
[2017-01-11] MEDS ORDERED: SITA25TA3 PO (08:17)
[2017-01-11] MEDS ORDERED: ASPI81TA3 PO (08:18)
--- NOTE | 2017-01-11 08:48 | ERD ---
ER Documentation Chief Complaint Date/Time DATE: 01/11/17 TIME: 08:47 Chief Complaint right arm HD shunt bleeding, c/o lower back pain HPI 86-year-old female comes in right arm HD shunt bleeding. She said she was dialyzed yesterday. She woke up with blood on the sheet. No other current complaints. No fevers no chills no palpitations. ROS All systems reviewed and are negative except as per history of present illness. Medications Home Meds Reported Medications Aspirin* (Aspirin* Chew) 81 Mg Tab.chew, 81 MG PO DAILY, TAB.CHEW 01/11/17 Sitagliptin* (Januvia*) 25 Mg Tablet, 25 MG PO DAILY, #30 TAB 01/11/17 Cholecalciferol (Vitamin D3) 1,000 Unit Capsule, 1000 UNIT PO DAILY, CAP 09/24/16 Loratadine* (Loratadine*) 10 Mg Tablet, 10 MG PO DAILY Y for PRN, #30 TAB 09/24/16 Metoprolol Tartrate* (Lopressor*) 25 Mg Tab, 25 MG PO DAILY, #60 TAB 09/24/16 Multivit/Ca Carb/B Cmplx/Fa* (Diandra-Svetlana*) 1 Tab Tab, 1 TAB PO DAILY, TAB 09/24/16 Folic Acid* (Folic Acid*) 1 Mg Tablet, 1 MG PO DAILY, TAB 09/24/16 Docusate Sodium* (Colace*) 100 Mg Capsule, 100 MG PO BID, #60 CAP 09/24/16 Calcium Acetate* (Phoslo*) 667 Mg Tablet, 667 MG PO WITH MEALS, TAB 09/24/16 Levothyroxine Sodium* (Synthroid*) 50 Mcg Tablet, 50 MCG PO BEFORE BREAKFAST, # 30 TAB 04/30/16 Metoclopramide Hcl* (Metoclopramide Hcl*) 10 Mg Tablet, 10 MG PO DAILY Y for NAUSEA AND OR VOMITING, TAB 04/30/16 Pantoprazole* (Pantoprazole*) 40 Mg Tablet.dr, 40 MG PO AC BREAKFAST, TAB 03/24/15 Rosuvastatin Calcium* (Crestor*) 20 Mg Tablet, 20 MG PO HS, TAB 03/24/15 Discontinued Reported Medications Saxagliptin Hcl* (Onglyza*) 2.5 Mg Tablet, 2.5 MG PO QOTHER DAY, TAB 09/24/16 Promethazine HCl/Codeine (Prometh-Codein 6.25-10 mg/5 ml) 5 Ml Syrup, 5 ML PO DAILY Y for PRN 09/24/16 Allergies Allergies: Coded Allergies: Penicillins (Verified Allergy, Severe, SWELLING, 01/11/17) iodine (Verified Allergy, Severe, 01/11/17) PMhx/Soc History of Surgery: Yes (CABG, right mastectomy) Anesthesia Reaction: No Hx Neurological Disorder: No Hx Respiratory Disorders: No Hx Cardiac Disorders: No Hx Psychiatric Problems: No Hx Miscellaneous Medical Probl: No Hx Alcohol Use: No Hx Substance Use: No Hx Tobacco Use: No Smoking Status: Never smoker Physical Exam Vitals Vital Signs Date Time Temp Pulse Resp B/P Pulse Ox O2 Delivery O2 Flow Rate FiO2 01/11/17 05:58 97.6 79 18 129/57 98 Physical Exam Const: [] Head: Atraumatic Eyes: Normal Conjunctiva ENT: Normal External Ears, Nose and Mouth. Neck: Full range of motion..~ No meningismus. Resp: Clear to auscultation bilaterally Cardio: Regular rate and rhythm, no murmurs Abd: Soft, non tender, non distended. Normal bowel sounds Skin: No petechiae or rashes Back: No midline or flank tenderness Ext: Shunts show some minimal scant bleeding. Neur: Awake and alert Psych: Normal Mood and Affect Result Diagram: 01/11/17 0700 01/11/17 0700 Results 24 hrs Laboratory Tests Test 01/11/17 07:00 White Blood Count 7.810^3/ul Red Blood Count 3.2810^6/ul Hemoglobin 11.1g/dl Hematocrit 33.6% Mean Corpuscular Volume 102.4fl Mean Corpuscular Hemoglobin 33.8pg Mean Corpuscular Hemoglobin Concent 33.0g/dl Red Cell Distribution Width 13.9% Platelet Count 99394^3/UL Mean Platelet Volume 9.8fl Neutrophils % 69.9% Lymphocytes % 15.0% Monocytes % 11.3% Eosinophils % 3.0% Basophils % 0.4% Nucleated Red Blood Cells % 0.0/100WBC Neutrophils # 5.510^3/ul Lymphocytes # 1.210^3/ul Monocytes # 0.910^3/ul Eosinophils # 0.210^3/ul Basophils # 0.010^3/ul Nucleated Red Blood Cells # 0.010^3/ul Prothrombin Time 12.1Sec Prothrombin Time Ratio 0.9 INR International Normalized Ratio 0.90 Activated Partial Thromboplast Time 27.7Sec Sodium Level 129mmol/L Potassium Level 5.1mmol/L Chloride Level 95mmol/L Carbon Dioxide Level 25mmol/L Anion Gap 14 Blood Urea Nitrogen 35mg/dl Creatinine 1.96mg/dl Glucose Level 106mg/dl Calcium Level 9.0mg/dl Total Bilirubin 0.2mg/dl Direct Bilirubin 0.00mg/dl Indirect Bilirubin 0.2mg/dl Aspartate Amino Transf (AST/SGOT) 63IU/L Alanine Aminotransferase (ALT/SGPT) 27IU/L Alkaline Phosphatase 71IU/L Total Protein 8.1g/dl Albumin 4.3g/dl Globulin 3.80g/dl Albumin/Globulin Ratio 1.13 Lipase 253U/L Procedures/MDM Medical decision-makin year female with shunt bleeding. Xeroform dressing applied with light gauze. Bleeding is stopped good hemostasis has been achieved. Patient will be discharged home to follow-up. Departure Diagnosis: Primary Impression: Problem with dialysis access Encounter type: initial encounter Qualified Code: T82.898A - Problem with dialysis access, initial encounter Condition: Stable Patient Instructions: Dialysis Shunt (Fistula) Bleeding SHANTI TIAN January 11, 2017 08:48
[2017-01-11 11:18] VITALS: BP 118/67; PULSE 71; RESP 19
== END 2017-01-11 11:22 | disposition home or self-care (01) ==
LOC: E/R 05:54
DX: T82.838A Hemorrhage due to vascular prosthetic devices, implants and grafts, initial encounter (principal); Y73.3 Surgical instruments, materials and gastroenterology and urology devices (including sutures) associated with adverse incidents
CPT/HCPCS: 36415; 80053; 83690; 85025; 85610; 85730; 99283

== ENCOUNTER 2017-03-19 02:57 | Emergency (ER) | payer MEDICARE, OTHER ==
[~2017-03-19] VITALS: Ht 163.8 cm; Wt 59.1 kg
[~2017-03-19 02:57] MED LIST changes: -ASPI-664 PO; +ASPI81TA3 PO; -PROM5SYR2 PO; -SAXA2.5T PO; +SITA25TA3 PO
[2017-03-19 03:06] VITALS: Ht 163.8 cm; Wt 59.1 kg
--- NOTE | 2017-03-19 03:09 | ERA ---
ER Documentation Chief Complaint Date/Time DATE: 03/19/17 TIME: 03:08 Chief Complaint KALEN RA39, right upper arm bleeding fistula HPI The patient is a 86-year-old female, presenting to the ER because of right upper extremity AV fistula bleeding after she removed the Band-Aid. She had dialysis yesterday. The bleeding was able to stop by the fermentation operator with compression. Denies syncope, near syncope, neck pain, chest pain, abdominal pain, vomiting,, dysuria. She does not smoke or drink. She does not walk Past medical history: CAD, chronic kidney disease on hemodialysis Tuesday and Tuesday, hypertension, diabetes mellitus, dyslipidemia, hypothyroidism Surgical history: CABG, right mastectomy, right upper extremity AV fistula ROS All systems reviewed and are negative except as per history of present illness. Medications Home Meds Reported Medications Aspirin* (Aspirin* Chew) 81 Mg Tab.chew, 81 MG PO DAILY, TAB.CHEW 01/11/17 Sitagliptin* (Januvia*) 25 Mg Tablet, 25 MG PO DAILY, #30 TAB 01/11/17 Cholecalciferol (Vitamin D3) 1,000 Unit Capsule, 1000 UNIT PO DAILY, CAP 09/24/16 Loratadine* (Loratadine*) 10 Mg Tablet, 10 MG PO DAILY Y for PRN, #30 TAB 09/24/16 Multivit/Ca Carb/B Cmplx/Fa* (Diandra-Svetlana*) 1 Tab Tab, 1 TAB PO DAILY, TAB 09/24/16 Folic Acid* (Folic Acid*) 1 Mg Tablet, 1 MG PO DAILY, TAB 09/24/16 Docusate Sodium* (Colace*) 100 Mg Capsule, 100 MG PO BID, #60 CAP 09/24/16 Calcium Acetate* (Phoslo*) 667 Mg Tablet, 667 MG PO WITH MEALS, TAB 09/24/16 Levothyroxine Sodium* (Synthroid*) 50 Mcg Tablet, 50 MCG PO BEFORE BREAKFAST, # 30 TAB 04/30/16 Pantoprazole* (Pantoprazole*) 40 Mg Tablet.dr, 40 MG PO AC BREAKFAST, TAB 03/24/15 Rosuvastatin Calcium* (Crestor*) 20 Mg Tablet, 20 MG PO HS, TAB 03/24/15 Discontinued Reported Medications Metoprolol Tartrate* (Lopressor*) 25 Mg Tab, 25 MG PO DAILY, #60 TAB 09/24/16 Metoclopramide Hcl* (Metoclopramide Hcl*) 10 Mg Tablet, 10 MG PO DAILY Y for NAUSEA AND OR VOMITING, TAB 04/30/16 Allergies Allergies: Coded Allergies: Penicillins (Unverified Allergy, Severe, SWELLING, 03/19/17) iodine (Unverified Allergy, Severe, 03/19/17) PMhx/Soc History of Surgery: Yes (CABG, right mastectomy) Anesthesia Reaction: No Hx Neurological Disorder: No Hx Respiratory Disorders: No Hx Cardiac Disorders: No Hx Psychiatric Problems: No Hx Miscellaneous Medical Probl: No Hx Alcohol Use: No Hx Substance Use: No Hx Tobacco Use: No Physical Exam Vitals Vital Signs Date Time Temp Pulse Resp B/P Pulse Ox O2 Delivery O2 Flow Rate FiO2 03/19/17 05:37 98.2 70 14 110/50 98 Room Air 03/19/17 03:06 97.2 74 14 83/49 95 Physical Exam Const: No acute distress. Head: Atraumatic. Eyes: Normal Conjunctiva. ENT: Normal External Ears, Nose and Mouth. Neck: Full range of motion. No meningismus. Resp: Clear to auscultation bilaterally. Cardio: Regular rate and rhythm. Abd: Soft, non distended, normal bowel sounds, non tender. Skin: No petechiae or rashes. Back: No midline or flank tenderness. Ext: Right upper extremity AV fistula with a small puncture wound with minimal bleeding, fistula is positive for thrill and bruit Result Diagram: 03/19/17 0350 03/19/17 0350 Results 24 hrs Laboratory Tests Test 03/19/17 03:50 03/19/17 04:38 White Blood Count 17.210^3/ul Red Blood Count 2.9610^6/ul Hemoglobin 9.7g/dl Hematocrit 30.4% Mean Corpuscular Volume 102.7fl Mean Corpuscular Hemoglobin 32.8pg Mean Corpuscular Hemoglobin Concent 31.9g/dl Red Cell Distribution Width 13.2% Platelet Count 16606^3/UL Mean Platelet Volume 10.4fl Neutrophils % 86.5% Lymphocytes % 6.1% Monocytes % 5.1% Eosinophils % 0.9% Basophils % 0.2% Nucleated Red Blood Cells % 0.0/100WBC Neutrophils # 14.910^3/ul Lymphocytes # 1.010^3/ul Monocytes # 0.910^3/ul Eosinophils # 0.210^3/ul Basophils # 0.010^3/ul Nucleated Red Blood Cells # 0.010^3/ul Sodium Level 139mmol/L Potassium Level 5.0mmol/L Chloride Level 92mmol/L Carbon Dioxide Level 30mmol/L Anion Gap 22 Blood Urea Nitrogen 35mg/dl Creatinine 2.01mg/dl Glucose Level 225mg/dl Calcium Level 8.8mg/dl Prothrombin Time 13.3Sec Prothrombin Time Ratio 1.0 INR International Normalized Ratio 1.01 Activated Partial Thromboplast Time 22.8Sec Procedures/MDM Procedure: The dressing was removed. Puncture wound was dressed with Surgicel and compression dressing with Coban. Neurovascular is intact MEDICAL MAKING DECISION: The patient is 85-year-old female, presenting with bleeding puncture wound from the AV fistula. It is not bleeding any more. the patient has been the ER for many hours. The leukocytosis might be formed acute distress, I do not suspect pneumonia or acute cystitis Departure Diagnosis: Primary Impression: Hemorrhage of arteriovenous fistula Condition: Good Comments I discussed the patient with her physician Dr. Umanzor who agreed to discharge the patient I discussed the findings with the patient. I advised the patient to follow-up with the primary physician in about 1-2 days, sooner if needed and return if any concern. TORO ROPER MD Mar 19, 2017 03:09
[2017-03-19 04:13] LABS: BASOPHILS % 0.2 % (0.0-2.0); EOSINOPHILS # 0.2 10^3/ul (0.0-0.5); EOSINOPHILS % 0.9 % (0.0-7.0); HEMATOCRIT 30.4 % (37.0-47.0); HEMOGLOBIN 9.7 g/dl (12.0-16.0); LYMPHOCYTES % 6.1 % (15.0-51.0); MEAN CORPUSCULAR HEMOGLOBIN 32.8 pg (29.0-33.0); MEAN CORPUSCULAR HGB CONC 31.9 g/dl (32.0-37.0); MEAN CORPUSCULAR VOLUME 102.7 fl (82.0-101.0); MEAN PLATELET VOLUME 10.4 fl (7.4-10.4); MONOCYTE # 0.9 10^3/ul (0.3-0.9); MONOCYTES % 5.1 % (0.0-11.0); NEUTROPHIL # 14.9 10^3/ul (1.6-7.5); NEUTROPHILS % 86.5 % (39.0-77.0); PLATELET COUNT 210 10^3/UL (140-415); RED BLOOD COUNT 2.96 10^6/ul (4.20-5.40); RED CELL DISTRIBUTION WIDTH 13.2 % (11.5-14.5); WHITE BLOOD COUNT 17.2 10^3/ul (4.8-10.8)
[2017-03-19 04:31] LABS: CALCIUM 8.8 mg/dl (8.4-10.2); CREATININE 2.01 mg/dl (0.44-1.00)
[2017-03-19 05:30] LABS: INR 1.01; PROTIME 13.3 Sec (12.2-14.2)
[2017-03-19 05:31] LABS: PARTIAL THROMBOPLASTIN TIME 22.8 Sec (25.0-35.0)
[2017-03-19 06:13] VITALS: TEMP 98.3
--- NOTE | 2017-03-19 07:07 | RADRPT ---
PROCEDURE: Chest. CLINICAL INDICATION: Cough. TECHNIQUE: Single frontal view of the chest was obtained. COMPARISON: 09/24/2016. FINDINGS: Mediasternotomy wires are present. The cardiac silhouette is magnified. The aortic arch is calcifi ed. There is no focal consolidation, vascular congestion or pleural effusion. There is no pneumoth orax. There is an old fracture/deformity of the left proximal humerus. There is axillary stent with in the right upper arm. Right axillary clips are present. IMPRESSION: No evidence for active cardiopulmonary disease. Aortic atherosclerosis. Old fracture/deformity of the left proximal humerus. .Carlito Coronado MD, MD Date Time Electronically viewed and signed by .Carlito Coronado MD, MD on 03/19/2017 07:07 .T/
[2017-03-19] MEDS ORDERED: ACETAMINOPHEN 325 MG TAB PO ONE (08:00)
[2017-03-19 08:15] VITALS: BP 112/50; PULSE 88; RESP 18
== END 2017-03-19 09:14 | disposition home or self-care (01) ==
LOC: E/R 02:57
DX: T82.838A Hemorrhage due to vascular prosthetic devices, implants and grafts, initial encounter (principal); I25.10 Atherosclerotic heart disease of native coronary artery without angina pectoris; I12.9 Hypertensive chronic kidney disease with stage 1 through stage 4 chronic kidney disease, or unspecified chronic kidney disease; N18.9 Chronic kidney disease, unspecified; E11.22 Type 2 diabetes mellitus with diabetic chronic kidney disease; E03.9 Hypothyroidism, unspecified; Y71.2 Prosthetic and other implants, materials and accessory cardiovascular devices associated with adverse incidents; Z79.82 Long term (current) use of aspirin; Z99.2 Dependence on renal dialysis; Z79.84 Long term (current) use of oral hypoglycemic drugs
CPT/HCPCS: 36415; 71010; 80048; 85025; 85610; 85730

== ENCOUNTER 2017-03-21 06:30 | Inpatient (IN) | payer MEDICARE, OTHER ==
[2017-03-21] VITALS (11 sets, daily range): BP systolic 98–120; BP diastolic 48–63; PULSE 65–76; RESP 18–20; TEMP 99.2; Ht 165.1 cm; Wt 64.3 kg
[~2017-03-21] VITALS: Ht 165.1 cm; Wt 64.3 kg
[~2017-03-21 06:30] MED LIST changes: -METO-448 PO; -METO10TA96 PO
[2017-03-21] MEDS ORDERED: morphine 2 MG INJ IV STA (06:37)
[2017-03-21] MEDS ORDERED: ONDANSETRON 4 MG INJ IV STA (06:37)
--- NOTE | 2017-03-21 06:58 | ERA ---
ER Documentation Chief Complaint Date/Time DATE: 03/21/17 TIME: 06:56 Chief Complaint BIB RA FOR EVAL OF BACK PAIN S/P FALL 2 DAYS AGO. HPI This is an 86-year-old female history of chronic pain, chronic back pain, end- stage renal disease on dialysis Tuesday, Tuesday, Tuesday. The patient presents with worsening pain and inability to get out of bed. The patient states that she was seen approximately 3 days ago for mechanical fall. During that time she had an injury to her AV fistula. The patient states that the symptoms have resolved however over the weekend the patient describes worsening lumbar back pain with mild radiation to bilateral lower legs. She denies any fevers or chills, no abdominal pain no headache or neck pain. She states that the pain is in similar location and character to her chronic pain but worse to the point where she cannot care for activities of daily living. The patient does have home health care providers but they are only there from 8 AM to 7 PM. She is otherwise alone overnight and having difficulty caring for herself and even getting out of bed which is unusual. No bowel or bladder incontinence and/ or retention. ROS All systems reviewed and are negative except as per history of present illness. Medications Home Meds Reported Medications Aspirin* (Aspirin* Chew) 81 Mg Tab.chew, 81 MG PO DAILY, TAB.CHEW 01/11/17 Sitagliptin* (Januvia*) 25 Mg Tablet, 25 MG PO DAILY, #30 TAB 01/11/17 Cholecalciferol (Vitamin D3) 1,000 Unit Capsule, 1000 UNIT PO DAILY, CAP 09/24/16 Loratadine* (Loratadine*) 10 Mg Tablet, 10 MG PO DAILY Y for PRN, #30 TAB 09/24/16 Multivit/Ca Carb/B Cmplx/Fa* (Diandra-Svetlana*) 1 Tab Tab, 1 TAB PO DAILY, TAB 09/24/16 Folic Acid* (Folic Acid*) 1 Mg Tablet, 1 MG PO DAILY, TAB 09/24/16 Docusate Sodium* (Colace*) 100 Mg Capsule, 100 MG PO BID, #60 CAP 09/24/16 Calcium Acetate* (Phoslo*) 667 Mg Tablet, 667 MG PO WITH MEALS, TAB 09/24/16 Levothyroxine Sodium* (Synthroid*) 50 Mcg Tablet, 50 MCG PO BEFORE BREAKFAST, # 30 TAB 9/16/16 Pantoprazole* (Pantoprazole*) 40 Mg Tablet.dr, 40 MG PO AC BREAKFAST, TAB 03/24/15 Rosuvastatin Calcium* (Crestor*) 20 Mg Tablet, 20 MG PO HS, TAB 03/24/15 Discontinued Reported Medications Metoprolol Tartrate* (Lopressor*) 25 Mg Tab, 25 MG PO DAILY, #60 TAB 09/24/16 Metoclopramide Hcl* (Metoclopramide Hcl*) 10 Mg Tablet, 10 MG PO DAILY Y for NAUSEA AND OR VOMITING, TAB 04/30/16 Allergies Allergies: Coded Allergies: Penicillins (Unverified Allergy, Severe, SWELLING, 03/19/17) iodine (Unverified Allergy, Severe, 03/19/17) PMhx/Soc History of Surgery: Yes (heart sx) Anesthesia Reaction: No Hx Neurological Disorder: No Hx Respiratory Disorders: No Hx Cardiac Disorders: Yes Hx Psychiatric Problems: No Hx Miscellaneous Medical Probl: Yes (DM, ARTHRITIS) Hx Alcohol Use: No Hx Substance Use: No Hx Tobacco Use: No Smoking Status: Never smoker FmHx Family History: No diabetes Physical Exam Vitals Vital Signs Date Time Temp Pulse Resp B/P Pulse Ox O2 Delivery O2 Flow Rate FiO2 03/21/17 06:37 99.2 72 16 122/57 99 Physical Exam General: Well developed, well nourished, no acute distress Head: Normocephalic, atraumatic. Eyes: Pupils equally reactive, EOM intact ENT: Moist mucous membranes Neck: Supple, no lymphadenopathy, No midline tenderness, deformities, step-offs to the cervical spine, full active and passive range of motion without midline pain. Respiratory: Lungs clear bilaterally, no distress Cardiovascular: RRR, no murmurs, rubs, or gallops Abdominal: Soft, non-tender, non-distended, no peritoneal signs : Deferred MSK: No edema, no unilateral swelling, 4/5 strength diffusely, right upper extremity AV fistula with good bruit and thrill, dressing is clean dry and intact, back without midline tenderness deformities or step-offs Neurologic: Alert and oriented, moving all extremities, normal speech, no focal weakness, no cerebellar signs Skin: No rash Psych: Normal mood Result Diagram: 03/21/17 0700 03/21/17 0700 Results 24 hrs Laboratory Tests Test 03/21/17 07:00 White Blood Count 8.610^3/ul Red Blood Count 2.4310^6/ul Hemoglobin 7.9g/dl Hematocrit 24.5% Mean Corpuscular Volume 100.8fl Mean Corpuscular Hemoglobin 32.5pg Mean Corpuscular Hemoglobin Concent 32.2g/dl Red Cell Distribution Width 13.4% Platelet Count 92580^3/UL Mean Platelet Volume 10.0fl Neutrophils % 74.6% Lymphocytes % 11.3% Monocytes % 10.5% Eosinophils % 2.9% Basophils % 0.2% Nucleated Red Blood Cells % 0.0/100WBC Neutrophils # 6.410^3/ul Lymphocytes # 1.010^3/ul Monocytes # 0.910^3/ul Eosinophils # 0.310^3/ul Basophils # 0.010^3/ul Nucleated Red Blood Cells # 0.010^3/ul Prothrombin Time 13.0Sec Prothrombin Time Ratio 1.0 INR International Normalized Ratio 0.98 Activated Partial Thromboplast Time 28.3Sec Sodium Level 132mmol/L Potassium Level 4.4mmol/L Chloride Level 88mmol/L Carbon Dioxide Level 29mmol/L Anion Gap 19 Blood Urea Nitrogen 76mg/dl Creatinine 3.34mg/dl Glucose Level 115mg/dl Calcium Level 8.8mg/dl Current Medications Medications (Trade) Dose Ordered Sig/Lisa Route PRN Reason Start Time Stop Time Status Last Admin Dose Admin Morphine Sulfate (morphine) 2 mg ONCE STAT IV 03/21/17 06:37 03/21/17 06:39 DC 03/21/17 07:23 Ondansetron HCl (Zofran Inj) 4 mg ONCE STAT IV 03/21/17 06:37 03/21/17 06:40 DC 03/21/17 07:23 Ondansetron HCl (Zofran Inj) 4 mg BRIDGE ORDER PRN IV NAUSEA AND/OR VOMITING 03/21/17 08:30 03/22/17 08:29 Acetaminophen (Tylenol Tab) 650 mg ER BRIDGE PRN PO MILD PAIN/FEVER 03/21/17 08:30 03/22/17 08:29 Procedures/MDM EKG, MONITORS, & DIAGNOSTIC IMAGING: EKG: I reviewed and interpreted a 12-lead EKG. Rhythm: Normal sinus rhythm Ectopy: None Intervals: No abnormalities ST segments: No elevations or depressions T waves: No contiguous inversions CT lumbar spine: IMPRESSION: 1. Old compression fraction of T12 vertebral body with approximately 80% loss of height, worse than seen previously. 2. Stable appearance of L1 and L3 compression fractures. 3. Mild multilevel lumbar spondylosis. There is multilevel central canal and neural foraminal stenosis as described. 4. No new fracture. 5. Bilateral renal cysts. 6. Atherosclerosis. 7. Sigmoid diverticulosis. RPTAT: QQ Chest x-ray: I reviewed and interpreted a 1 view of the chest Mediastinum: No enlargement Cardiac silhouette: No cardiomegaly Airspace: Clear lung soto bilaterally without evidence of pneumothorax Bones: No evidence of fracture LAB INTERPRETATION: No hyperkalemia, anemia noted slightly worse than baseline MEDICAL DECISION MAKING: The patient presents with acute exacerbation of chronic back pain. The patient' s low back pain is unlikely related to serious etiology. The patient exhibits no clinical signs or symptoms and has no history or risk factors to suggest cauda equina, cord compression, epidural abscess, epidural hematoma, acute aortic aneurysm or dissection. However, given the patient's recent fall CT imaging to rule out new or acute fracture would be reasonable. No evidence of acute aortic process. The patient is having significant difficulties with ADLs. For this reason I believe inpatient hospitalization, PT OT and possible placement may be appropriate. Patient is due for dialysis today, no evidence of volume overload. Laboratory testing and EKG testing to rule out hyperkalemia. Nonemergent dialysis likely necessary today. ER COURSE: The patient was given pain medication with improved symptoms. She is still having difficulty walking and will benefit from hospitalization, PT OT, consideration for placement. No indication for emergent dialysis. I kept the patient and/or family informed of laboratory and diagnostic imaging results throughout the emergency room course. DISPOSITION PLAN: Medical surgical admission for acute on chronic lumbar back pain, failure to perform ADLs, end-stage renal disease needing dialysis CONSULTATION: Accepting care team and consultations: I discussed the current laboratory data, diagnostic imaging and emergency care provided. Admitting team: Dr. Umanzor Admitting team indication: Insurance directed, Dr. Umanzor is primary care physician Departure Diagnosis: Primary Impression: Acute exacerbation of chronic low back pain Additional Impression: End stage renal disease on dialysis Condition: MARISA Carter MD Mar 21, 2017 06:58
[2017-03-21 07:19] LABS: BASOPHILS % 0.2 % (0.0-2.0); EOSINOPHILS # 0.3 10^3/ul (0.0-0.5); EOSINOPHILS % 2.9 % (0.0-7.0); HEMATOCRIT 24.5 % (37.0-47.0); HEMOGLOBIN 7.9 g/dl (12.0-16.0); LYMPHOCYTES % 11.3 % (15.0-51.0); MEAN CORPUSCULAR HEMOGLOBIN 32.5 pg (29.0-33.0); MEAN CORPUSCULAR HGB CONC 32.2 g/dl (32.0-37.0); MEAN CORPUSCULAR VOLUME 100.8 fl (82.0-101.0); MONOCYTE # 0.9 10^3/ul (0.3-0.9); MONOCYTES % 10.5 % (0.0-11.0); NEUTROPHIL # 6.4 10^3/ul (1.6-7.5); NEUTROPHILS % 74.6 % (39.0-77.0); PLATELET COUNT 169 10^3/UL (140-415); RED BLOOD COUNT 2.43 10^6/ul (4.20-5.40); RED CELL DISTRIBUTION WIDTH 13.4 % (11.5-14.5); WHITE BLOOD COUNT 8.6 10^3/ul (4.8-10.8)
--- NOTE | 2017-03-21 07:37 | RADRPT ---
PROCEDURE: XR Chest. TECHNIQUE: Single frontal radiograph. CLINICAL INDICATION: Chest pain. COMPARISON: 09/24/2016. FINDINGS: Median sternotomy wires are intact. There are also surgical dionna and a vascular stent noted in t he right axillary region. Unchanged low lung volumes and appearance of the cardiac silhouette. There is bilateral interstitia l prominence without focal consolidation, pneumothorax, or pleural effusions. 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 IMPRESSION: 1. Low lung volumes with mild bilateral interstitial prominence without focal consolidation or pleu ral effusions. RPTAT: EE .Melvin Avila MD, MD Date Time Electronically viewed and signed by .Melvin Avila MD, MD on 03/21/2017 07:42 .C/
[2017-03-21 07:41] LABS: CALCIUM 8.8 mg/dl (8.4-10.2); CREATININE 3.34 mg/dl (0.44-1.00); POTASSIUM 4.4 mmol/L (3.5-5.1)
[2017-03-21 07:44] LABS: INR 0.98
[2017-03-21 07:45] LABS: PARTIAL THROMBOPLASTIN TIME 28.3 Sec (25.0-35.0)
--- NOTE | 2017-03-21 08:20 | RADRPT ---
PROCEDURE: CT Lumbar Spine. CLINICAL INDICATION: Trauma due to a fall 3 days ago. Back pain. TECHNIQUE: The study was performed on a multidetector CT scanner. Spiral axial 1 mm images were o btained through the lumbar spine and reformatted at 2.5 mm slice thickness. Sagittal and coronal ref ormations were created from the raw axial data. The images were reviewed on a PACS workstation. Tota l exam DLP is 670.88 mGy-cm. CTDIvol is 20.47 mGy. One or more of the following dose reduction te chniques were used: Automated exposure control, adjustment of the mA and/or kV according to patient size, use of iterative reconstruction technique. COMPARISON: CT scan of the lumbar spine dated 06/26/2015. FINDINGS: There is an old compression fracture of T12 vertebral body with approximately 80% vertebral body hei ght loss, worse than seen previously. A small retropulsed fragment at the superior endplate is unch anged. The intradiskal contrast at T11-T12 is once again noted. There is a moderate compression fracture of the superior aspect of the L1 vertebral body with up to 40% loss in vertebral body height, unchanged. There is no bony retropulsion at this level. There is an old severe compression deformity of the L3 vertebral body involving the superior endplat e with approximately 60% vertebral body height loss and minimal retropulsion at the superior aspect, unchanged. Lumbar vertebral body alignment remains within normal limits. There is diffuse demineralization. Int radiskal contrast is noted within T11-T12. There are small marginal osteophytes at multiple levels. At T12-L1, there is minimal loss of disk height. There is no central canal or neural foraminal steno sis. At L1-L2, the disk height is within normal limits. There is no central canal or neural foraminal jim nosis. At L2-L3, mild diffuse posterior disk bulge without significant stenosis. At L3-L4, the disk height is within normal limits. There is a mild diffuse disk bulge which combined with mild bilateral facet and ligamentum flavum hypertrophy results in mild central canal stenosis. There is mild to moderate bilateral foraminal stenosis. At L4-L5, the disk height is within normal limits. There is a mild diffuse disk bulge which combined with mild facet and ligamentum flavum hypertrophy results in mild to moderate central canal stenosi s. There is moderate left and mild right neural foraminal stenosis. At L5-S1, the disk height is within normal limits. There is no central canal stenosis. There is mild left neural foraminal stenosis. There are benign bilateral renal cysts as seen previously. Vascular calcifications are present consi stent with atherosclerosis. The abdominal aorta is not dilated. There is diverticulosis of the sig moid colon. IMPRESSION: 1. Old compression fraction of T12 vertebral body with approximately 80% loss of height, worse than seen previously. 2. Stable appearance of L1 and L3 compression fractures. 3. Mild multilevel lumbar spondylosis. There is multilevel central canal and neural foraminal stenos is as described. 4. No new fracture. 5. Bilateral renal cysts. 6. Atherosclerosis. 7. Sigmoid diverticulosis. RPTAT: QQ .Christopher Solorzano MD, Date Time Electronically viewed and signed by .Christopher Solorzano MD, on 03/21/2017 08:19 .R/
[2017-03-21] MEDS ORDERED: ONDANSETRON 4 MG INJ IV PRN ×2 (08:30→10:00)
[2017-03-21] MEDS ORDERED: NACL 0.9% 3 ML SYG IV SCH (10:00)
[2017-03-21] MEDS ORDERED: BISACODYL (EC) 5 MG TAB PO PRN (10:00)
[2017-03-21] MEDS ORDERED: LORATADINE 10 MG TAB PO PRN (10:00)
[2017-03-21] MEDS: CALCIUM ACETATE 667 MG CAP PO SCH ×2 (12:15→17:21)
--- NOTE | 2017-03-21 14:00 | HP ---
Date/Time of Note Date/Time of Note DATE: 03/21/17 TIME: 13:59 Assessment/Plan VTE Prophylaxis VTE Prophylaxis Intervention: SCD's Lines/Catheters IV Catheter Type (from Nrs): Saline Lock HPI/ROS Admit Date/Time Admit Date/Time Mar 21, 2017 at 08:26 Hx of Present Illness HISTORY OF PRESENT ILLNESS: The patient is an 86-year-old female with history of ESRD, hypertension, diabetes mellitus, CAD, history of AV fistula in the right upper extremity. Status post patient has a history of fall mechanical, history of osteoporotic compression fracture of T12 and L3 vertebral bodies with retropulsion in the past, history of L1 compression fracture, history of diabetes, hypertension, history of humerus fracture, history of breast carcinoma status post mastectomy left, history of chemotherapy, history of sepsis, history of CAD, history of atherosclerotic heart disease, dyslipidemia, presented with weakness and with worsening pain and inability to get out of bed. The patient states that she was seen approximately 3 days ago for mechanical fall. During that time she had an injury to her AV fistula. She had come to ER and bleeding had stopped with conservative treatment The patient states that the symptoms have resolved however over the weekend the patient describes worsening lumbar back pain with mild radiation to bilateral lower legs. She denies any fevers or chills, no abdominal pain no headache or neck pain. She states that the pain is in similar location and character to her chronic pain but worse to the point where she cannot care for activities of daily living. She is otherwise alone overnight and having difficulty caring for herself and even getting out of bed which is unusual. No bowel or bladder incontinence and/or retention. PAST MEDICAL HISTORY: As mentioned above. Briefly, ESRD, hypertension, diabetes mellitus, CAD, atherosclerotic heart disease. ALLERGIES: 1. PENICILLIN. 2. IODINE. SOCIAL HISTORY: Negative. FAMILY HISTORY: Negative. MEDICATION HISTORY: Positive medication history. The patient is on: 1. Hydralazine. 2. Levothyroxine. 3. Meloxicam. 4. Reglan. 5. Protonix. 6. Crestor. REVIEW OF SYSTEMS: HEENT: Unremarkable. RESPIRATORY: Unremarkable. CARDIOVASCULAR: Unremarkable. ABDOMEN: Unremarkable. EXTREMITIES: Rt av graft +bruit CENTRAL NERVOUS SYSTEM: Unremarkable. PHYSICAL EXAMINATION: GENERAL: The patient is awake and alert. VITAL SIGNS: Stable 133/62, pulse 61. HEAD: Atraumatic, normocephalic. Pupils equal, reactive to light. NECK: Supple. No JVD. LUNGS: Clear. CARDIOVASCULAR: S1, S2 is normal. Systolic murmur noted. ABDOMEN: Soft, nontender. Bowel sounds positive. No palpable mass. EXTREMITIES: No cyanosis, clubbing, or edema. The patient has clotted graft right upper extremity. 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 Recurrent AV graft bleeding r/o central stenosis 2 Acute exacerbation of chronic lumbar pain 2. ESRD. 3. Hypertension. 4. Diabetes mellitus. 5. Atherosclerotic heart disease. 6. History of breast cancer with mastectomy, left. 7. History of humerus fracture, left in the past. 8. History of compression fracture of the vertebra L1. 9. History of dyslipidemia. 10. History of CAD. 11. History of osteoporosis. PLAN: Review ER record. Dr. Lindsey was called to see this patient in to r/ o central canal stenosis.Pain control Might need CT/MRI of lumbar spine HD M/W/F PMH/Family/Social Social History Smoking Status: Never smoker Exam/Review of Systems Vital Signs Vitals Vital Signs Date Time Temp Pulse Resp B/P Pulse Ox O2 Delivery O2 Flow Rate FiO2 03/21/17 13:10 69 03/21/17 11:10 19 03/21/17 10:40 98.7 116/55 94 Labs Result Diagram: 03/21/17 0700 03/21/17 0700 Medications Medications Current Medications Ondansetron HCl (Zofran Inj) 4 mg Q6H PRN IV NAUSEA AND/OR VOMITING; Start 03/21 at 10:00 Acetaminophen (Tylenol Tab) 650 mg Q6H PRN PO PAIN LEVEL 1-3 OR FEVER; Start at 10:00 Acetaminophen/ Hydrocodone Bitart ([place] (5/325)) 1 tab Q6H PRN PO MODERATE PAIN LEVEL 4-6; Start 03/21/17 at 10:00 Bisacodyl (Dulcolax) 5 mg DAILY PRN PO CONSTIPATION; Start 03/21/17 at 10:00 Pantoprazole (Protonix Tab) 40 mg DAILY@06 PO ; Start 03/22/17 at 06:00 Aspirin (Aspirin) 81 mg DAILY PO ; Start 03/22/17 at 09:00 Cholecalciferol (Vitamin D) 1,000 unit DAILY PO ; Start 03/22/17 at 09:00 Docusate Sodium (Colace) 100 mg BID PO ; Start 03/21/17 at 21:00 Folic Acid (Folic Acid) 1 mg DAILY PO ; Start 03/22/17 at 09:00 Loratadine (Claritin) 10 mg DAILY PRN PO PRN; Start 03/21/17 at 10:00 Multivit/Ca Carb/ B Cmplx/FA/Prenat (Diandra-Svetlana) 1 tab DAILY PO ; Start 03/22/17 at 09:00 NESTOR MEDINA MD Mar 21, 2017 14:00
--- NOTE | 2017-03-21 20:58 | CONS ---
Date/Time of Note Date/Time of Note DATE: 03/21/17 TIME: 20:56 Assessment/Plan Assessment/Plan Additional Assessment/Plan End-stage renal disease Bleeding right upper extremity AV fistula Patient may exhibit central venous stenosis that has caused the bleeding Plan for fistulogram possible angioplasty right upper extremity AV fistula Discussed with the patient Will discuss with the family Consultation Date/Type/Reason Admit Date/Time Mar 21, 2017 at 08:26 Date of Consultation: Mar 21, 2017 Reason for Consultation Bleeding right upper extremity AV fistula Hx of Present Illness This is an 86-year-old female with a history of end-stage renal disease currently on dialysis per right upper extremity AV fistula patient was found to have bleeding from the fistula after dialysis with a concern for possible central venous stenosis ENT: no complaints Respiratory: no complaints Cardiovascular: no complaints Gastrointestinal: no complaints Genitourinary: no complaints Musculoskeletal: no complaints Past Medical History Medical History: coronary artery disease, diabetes, high cholesterol Past Surgical History Past Surgical Hx: other Family History Significant Family History: no pertinent family hx Social History Alcohol Use: sober Smoking Status: Never smoker Drug Use: none Exam/Review of Systems Vital Signs Vitals Vital Signs Date Time Temp Pulse Resp B/P Pulse Ox O2 Delivery O2 Flow Rate FiO2 03/21/17 19:32 99.0 79 20 108/53 92 Exam Eyes: EOMI, PERRL, nl conjunctiva, nl lids, nl sclera ENMT: nl external ears & nose, nl lips & teeth, nl nasal mucosa & septum Neck: non-tender, supple Respiratory: clear to auscultation, normal air movement Cardiovascular: nl pulses, regular rate and rhythm Gastrointestinal: nl liver, spleen, non-tender, soft Results Result Diagram: 03/21/17 0700 03/21/17 0700 Results 24 hrs Laboratory Tests Test 03/21/17 07:00 03/21/17 12:55 White Blood Count 8.6 # Red Blood Count 2.43 L Hemoglobin 7.9 L Hematocrit 24.5 L Mean Corpuscular Volume 100.8 Mean Corpuscular Hemoglobin 32.5 Mean Corpuscular Hemoglobin Concent 32.2 Red Cell Distribution Width 13.4 Platelet Count 169 Mean Platelet Volume 10.0 Neutrophils % 74.6 Lymphocytes % 11.3 L Monocytes % 10.5 Eosinophils % 2.9 Basophils % 0.2 Nucleated Red Blood Cells % 0.0 Neutrophils # 6.4 Lymphocytes # 1.0 Monocytes # 0.9 Eosinophils # 0.3 Basophils # 0.0 Nucleated Red Blood Cells # 0.0 Prothrombin Time 13.0 Prothrombin Time Ratio 1.0 INR International Normalized Ratio 0.98 Activated Partial Thromboplast Time 28.3 Sodium Level 132 L Potassium Level 4.4 Chloride Level 88 L Carbon Dioxide Level 29 Anion Gap 19 H Blood Urea Nitrogen 76 H Creatinine 3.34 H Glucose Level 115 Calcium Level 8.8 Hepatitis B Surface Antigen NEGATIVE Hepatitis C Antibody NEGATIVE Bedside Glucose 161 Medications Medications Current Medications Ondansetron HCl (Zofran Inj) 4 mg Q6H PRN IV NAUSEA AND/OR VOMITING; Start 03/21 at 10:00 Acetaminophen (Tylenol Tab) 650 mg Q6H PRN PO PAIN LEVEL 1-3 OR FEVER; Start at 10:00 Acetaminophen/ Hydrocodone Bitart ([place] (5/325)) 1 tab Q6H PRN PO MODERATE PAIN LEVEL 4-6; Start 03/21/17 at 10:00 Bisacodyl (Dulcolax) 5 mg DAILY PRN PO CONSTIPATION; Start 03/21/17 at 10:00 Pantoprazole (Protonix Tab) 40 mg DAILY@06 PO ; Start 03/22/17 at 06:00 Aspirin (Aspirin) 81 mg DAILY PO ; Start 03/22/17 at 09:00 Cholecalciferol (Vitamin D) 1,000 unit DAILY PO ; Start 03/22/17 at 09:00 Docusate Sodium (Colace) 100 mg BID PO ; Start 03/21/17 at 21:00 Folic Acid (Folic Acid) 1 mg DAILY PO ; Start 03/22/17 at 09:00 Loratadine (Claritin) 10 mg DAILY PRN PO PRN; Start 03/21/17 at 10:00 Multivit/Ca Carb/ B Cmplx/FA/Prenat (Diandra-Svetlana) 1 tab DAILY PO ; Start 03/22/17 at 09:00 MARGO MARIN MD Mar 21, 2017 20:58
[2017-03-21] MEDS: ACETAMINOPHEN 325 MG TAB PO PRN (22:04)
[2017-03-21] MEDS: DOCUSATE SODIUM 100 MG CAP PO SCH (22:05)
[2017-03-22 02:00] VITALS: BP 126/60; RESP 18
[2017-03-22] MEDS: LEVOTHYROXINE 50 MCG TAB PO SCH (06:52)
[2017-03-22] MEDS: ACETAMINOPHEN 325 MG TAB PO PRN ×2 (06:52→13:22)
[2017-03-22] MEDS: PANTOPRAZOLE (EC) 40 MG TAB PO SCH (06:52)
[2017-03-22] MEDS ORDERED: PANTOPRAZOLE (EC) 40 MG TAB PO SCH (07:00)
[2017-03-22] MEDS: CALCIUM ACETATE 667 MG CAP PO SCH ×3 (08:39→17:43)
[2017-03-22] MEDS: CHOLECALCIFEROL 1,000 UNIT TAB PO SCH (08:39)
[2017-03-22] MEDS: ASPIRIN 81 MG TAB PO SCH (08:39)
[2017-03-22] MEDS: FOLIC ACID 1 MG TAB PO SCH (08:39)
[2017-03-22] MEDS: DOCUSATE SODIUM 100 MG CAP PO SCH ×3 (08:39→21:16)
[2017-03-22] MEDS: MULTIVIT/CA CARB/B CMPLX/FA TAB PO SCH (08:39)
--- NOTE | 2017-03-22 13:11 | PN ---
Date/Time of Note Date/Time of Note DATE: 03/22/17 TIME: 13:08 Assessment/Plan VTE Prophylaxis VTE Prophylaxis Intervention: SCD's Lines/Catheters IV Catheter Type (from Nrsg): Saline Lock Assessment/Plan Chief Complaint/Hosp Course MPRESSION: 1. Recurrent AV graft bleeding r/o central stenosis 2 Acute exacerbation of chronic lumbar pain 2. ESRD. 3. Hypertension. 4. Diabetes mellitus. 5. Atherosclerotic heart disease. 6. History of breast cancer with mastectomy, left. 7. History of humerus fracture, left in the past. 8. History of compression fracture of the vertebra L1. 9. History of dyslipidemia. 10. History of CAD. 11. History of osteoporosis. Plan - Fistulgram tmw by [facility] - Acetaminophen extra strength - HD M/W/F : possibly tmw after Fistulogram - Labs tmw - Pain control - Ortho surgeon? Problems: Subjective 24 Hr Interval Summary Free Text/Dictation Pain in back requesting acetaminophen extra strength Spoke to [facility], fistulogram tmw Exam/Review of Systems Vital Signs Vitals Vital Signs Date Time Temp Pulse Resp B/P Pulse Ox O2 Delivery O2 Flow Rate FiO2 03/22/17 02:00 98.6 76 18 126/60 94 Intake and Output 03/21/17 03/21/17 03/22/17 15:00 23:00 07:00 Intake Total 500 ml 240 ml 120 ml Output Total 1500 ml Balance -1000 ml 240 ml 120 ml Exam HEAD: Atraumatic, normocephalic. Pupils equal, reactive to light. NECK: Supple. No JVD. LUNGS: Clear. CARDIOVASCULAR: S1, S2 is normal. Systolic murmur noted. ABDOMEN: Soft, nontender. Bowel sounds positive. No palpable mass. EXTREMITIES: No cyanosis, clubbing, or edema. Rt AV graft +bruit+ MEDICAL OFFICE TECHNOLOGY INSTRUCTOR: The patient is awake, alert, no focal deficit Unable to lift legs due to back pain Results Result Diagram: 03/21/17 0700 03/21/17 0700 Medications Medications Current Medications Ondansetron HCl (Zofran Inj) 4 mg Q6H PRN IV NAUSEA AND/OR VOMITING; Start 03/21 at 10:00 Acetaminophen (Tylenol Tab) 650 mg Q6H PRN PO PAIN LEVEL 1-3 OR FEVER; Start at 10:00 Acetaminophen/ Hydrocodone Bitart ([place] (5/325)) 1 tab Q6H PRN PO MODERATE PAIN LEVEL 4-6; Start 03/21/17 at 10:00 Bisacodyl (Dulcolax) 5 mg DAILY PRN PO CONSTIPATION; Start 03/21/17 at 10:00 Pantoprazole (Protonix Tab) 40 mg DAILY@06 PO Last administered on 03/22/17 06: 52; Admin Dose 40 MG; Start 03/22/17 at 06:00 Aspirin (Aspirin) 81 mg DAILY PO Last administered on 03/22/17 08:39; Admin Dose 81 MG; Start 03/22/17 at 09:00 Cholecalciferol (Vitamin D) 1,000 unit DAILY PO Last administered on 03/22/17 08:39; Admin Dose 1,000 UNIT; Start 03/22/17 at 09:00 Docusate Sodium (Colace) 100 mg BID PO Last administered on 03/22/17 08:39; Admin Dose 100 MG; Start 03/21/17 at 21:00 Folic Acid (Folic Acid) 1 mg DAILY PO Last administered on 03/22/17 08:39; Admin Dose 1 MG; Start 03/22/17 at 09:00 Loratadine (Claritin) 10 mg DAILY PRN PO PRN; Start 03/21/17 at 10:00 Multivit/Ca Carb/ B Cmplx/FA/Prenat (Diandra-Svetlana) 1 tab DAILY PO Last administered on 03/22/17 08:39; Admin Dose 1 TAB; Start 03/22/17 at 09:00 NESTOR MEDINA MD Mar 22, 2017 13:11
[2017-03-22 14:08] VITALS: BP 130/60; RESP 16
--- NOTE | 2017-03-22 16:34 | PN ---
Date/Time of Note Date/Time of Note DATE: 03/22/17 TIME: 16:33 Assessment/Plan Lines/Catheters IV Catheter Type (from Nrsg): Saline Lock Assessment/Plan Chief Complaint/Hosp Course This is an 86-year-old female with a history of end-stage renal disease currently on dialysis per right upper extremity AV fistula patient was found to have bleeding from the fistula after dialysis with a concern for possible central venous stenosis Plan for fistulogram and possible angioplasty RUE AVF tomorrow Problems: Subjective 24 Hr Interval Summary Constitutional: improved Pain Control: mild Exam/Review of Systems Vital Signs Vitals Vital Signs Date Time Temp Pulse Resp B/P Pulse Ox O2 Delivery O2 Flow Rate FiO2 03/22/17 14:08 97.9 73 16 130/60 91 Intake and Output 03/21/17 03/21/17 03/22/17 15:00 23:00 07:00 Intake Total 500 ml 240 ml 120 ml Output Total 1500 ml Balance -1000 ml 240 ml 120 ml Exam ENMT: mucosa pink and moist, nl external ears & nose, nl lips & teeth, nl nasal mucosa & septum Neck: non-tender, supple Respiratory: clear to auscultation, normal air movement Cardiovascular: nl pulses, regular rate and rhythm Gastrointestinal: nl liver, spleen, non-tender, soft Results Result Diagram: 03/21/17 0700 03/21/17 07 MARGO MARIN MD Mar 22, 2017 16:33
[2017-03-22] MEDS ORDERED: METHYLPREDNISOLONE (MEDROL) DOSE PACK PO SCH (19:00)
[2017-03-22 20:00] VITALS: BP 127/56; RESP 18
[2017-03-22] MEDS ORDERED: METHYLPREDNISOLONE 4 MG TAB PO SCH (21:00)
[2017-03-22] MEDS: ACETAMINOPHEN 500 MG TAB PO PRN (21:16)
[2017-03-22] MEDS: HYDROCODONE/APAP (5/325) TAB PO PRN (23:35)
[2017-03-23] VITALS (10 sets, daily range): BP systolic 115–145; BP diastolic 54–66; PULSE 72–77; RESP 16–20
--- NOTE | 2017-03-23 01:31 | CONS ---
DATE OF ADMISSION: 03/22/2017 DATE OF CONSULTATION: 03/22/2017 Orthopedic Surgical Consultation HISTORY OF PRESENT ILLNESS: The patient is an 86-year-old female with a past history of multiple medical problems, including ESRD, on dialysis, diabetes mellitus, coronary artery disease, history of breast carcinoma status post mastectomy followed by chemotherapy, history of humerus fracture, history of multiple falls with multiple compression fractures involving T12 and L3. She has a reason for developing increasing pain involving her low back. However, the evaluation at the time of the reason for, she did not show any new compression fractures. However, she was admitted on 03/21/2017 when she came to the emergency room complaining of increasing pain involving her back, which makes her mobility difficult. On questioning she is experiencing increasing pain with radiation to lower extremities. PHYSICAL EXAMINATION: My examination revealed an 86-year-old female, who does not seems to be in great pain while she is in bed. There is no obvious neurologic compromise and moving lower extremities. There were no obvious motor weakness and there were no sensory changes. Deep tendon reflexes were somewhat difficult to evaluate in supine position. Straight leg raising was positive at about 60 degrees. There were no local tenderness or paravertebral muscle spasms at this time. CT scan of the spine revealed multiple compression fractures involving L1, T12 and L3, which is not an acute fracture. The CT scan of the spine was revealing the presence of spinal stenosis along with the foraminal stenosis at multiple levels. IMPRESSION: Diagnostic impression of the spine problems: 1. Spinal stenosis with the foraminal stenosis at the multiple levels. 2. Compression fractures involving T12, L1, and L3 which is old. TREATMENT PLAN: 1. Trial of conservative treatment with Medrol Dosepak and nonsteroidal anti-inflammatory medications. 2. If conservative treatment with Medrol Dosepak and nonsteroidal anti-inflammatory medication is not effective, then epidural injection should be tried, however epidural injection is not available at [facility] and it would have to be done as an outpatient. Dictated By: In Sangeeta Lau MD /vaishali/ /Document#: [id number]
[2017-03-23] MEDS: PANTOPRAZOLE (EC) 40 MG TAB PO SCH (04:42)
[2017-03-23] MEDS: LEVOTHYROXINE 50 MCG TAB PO SCH (04:43)
[2017-03-23 06:34] LABS: BASOPHILS % 0.3 % (0.0-2.0); EOSINOPHILS # 0.1 10^3/ul (0.0-0.5); EOSINOPHILS % 0.7 % (0.0-7.0); HEMATOCRIT 26.6 % (37.0-47.0); HEMOGLOBIN 8.4 g/dl (12.0-16.0); LYMPHOCYTES # 0.7 10^3/ul (0.8-2.9); LYMPHOCYTES % 9.5 % (15.0-51.0); MEAN CORPUSCULAR HEMOGLOBIN 33.2 pg (29.0-33.0); MEAN CORPUSCULAR HGB CONC 31.6 g/dl (32.0-37.0); MEAN CORPUSCULAR VOLUME 105.1 fl (82.0-101.0); MEAN PLATELET VOLUME 9.9 fl (7.4-10.4); MONOCYTE # 0.4 10^3/ul (0.3-0.9); MONOCYTES % 5.1 % (0.0-11.0); NEUTROPHIL # 6.1 10^3/ul (1.6-7.5); NEUTROPHILS % 84.1 % (39.0-77.0); PLATELET COUNT 229 10^3/UL (140-415); RED BLOOD COUNT 2.53 10^6/ul (4.20-5.40); RED CELL DISTRIBUTION WIDTH 13.2 % (11.5-14.5); WHITE BLOOD COUNT 7.2 10^3/ul (4.8-10.8)
[2017-03-23 07:03] LABS: CALCIUM 8.7 mg/dl (8.4-10.2); CREATININE 2.76 mg/dl (0.44-1.00); POTASSIUM 4.6 mmol/L (3.5-5.1)
[2017-03-23] MEDS: METHYLPREDNISOLONE 4 MG TAB PO SCH ×3 (08:00→20:20)
[2017-03-23] MEDS: CALCIUM ACETATE 667 MG CAP PO SCH ×3 (08:15→20:20)
[2017-03-23] MEDS: FOLIC ACID 1 MG TAB PO SCH (09:00)
[2017-03-23] MEDS: DOCUSATE SODIUM 100 MG CAP PO SCH ×2 (09:00→20:27)
[2017-03-23] MEDS ORDERED: CELECOXIB 200 MG CAP PO SCH (09:00)
[2017-03-23] MEDS: MULTIVIT/CA CARB/B CMPLX/FA TAB PO SCH (09:00)
[2017-03-23] MEDS: ASPIRIN 81 MG TAB PO SCH (09:00)
[2017-03-23] MEDS: CHOLECALCIFEROL 1,000 UNIT TAB PO SCH (09:00)
--- NOTE | 2017-03-23 11:33 | PN ---
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, plan for fistulogram possibly tomorrow Problems: Subjective 24 Hr Interval Summary Constitutional: improved Pain Control: mild Exam/Review of Systems Vital Signs Vitals Vital Signs Date Time Temp Pulse Resp B/P Pulse Ox O2 Delivery O2 Flow Rate FiO2 03/23/17 02:59 98.5 65 16 145/62 91 Intake and Output 03/22/17 03/22/17 03/23/17 15:00 23:00 07:00 Intake Total 480 ml 240 ml Balance 480 ml 240 ml Exam Neck: non-tender, supple Respiratory: clear to auscultation, normal air movement Cardiovascular: nl pulses, regular rate and rhythm Gastrointestinal: nl liver, spleen, non-tender, soft Results Result Diagram: 03/23/17 0540 03/23/17 0540 MARGO MARIN MD Mar 23, 2017 11:33
--- NOTE | 2017-03-23 11:59 | PN ---
Date/Time of Note Date/Time of Note DATE: 03/23/17 TIME: 11:53 Assessment/Plan VTE Prophylaxis VTE Prophylaxis Intervention: SCD's Lines/Catheters IV Catheter Type (from Nrsg): Saline Lock Urinary Cath still in place: No Assessment/Plan Chief Complaint/Hosp Course MPRESSION: 1. Recurrent AV graft bleeding r/o central stenosis pending Fistulogram 2 Acute exacerbation of chronic lumbar pain on Medrol dose pack/celecoxib 2. ESRD. 3. Hypertension. 4. Diabetes mellitus. 5. Atherosclerotic heart disease. 6. History of breast cancer with mastectomy, left. 7. History of humerus fracture, left in the past. 8. History of compression fracture of the vertebra L1. 9. History of dyslipidemia. 10. History of CAD. 11. History of osteoporosis. Plan - Fistulgram tmw per Dr Pederson who revaluated pt at bedside, there is posterior part of fistula which can be used for HD access - HD today - Acetaminophen extra strength for pain - Medrol dose pack per Dr Lau( appreciate consult and NSAID( however held due to renal failure) - ISS while on Medrol dose pack - Labs tmw - Pain control Problems: Subjective 24 Hr Interval Summary Free Text/Dictation Spoke to Dr Rees as no OR time available for fistulogram Went to see patient she is requesting food, however rt arm fistula bleeding, had put pressure with help of HD nurse Pt forgetful Exam/Review of Systems Vital Signs Vitals Vital Signs Date Time Temp Pulse Resp B/P Pulse Ox O2 Delivery O2 Flow Rate FiO2 03/23/17 02:59 98.5 65 16 145/62 91 Intake and Output 03/22/17 03/22/17 03/23/17 15:00 23:00 07:00 Intake Total 480 ml 240 ml Balance 480 ml 240 ml Results Exam HEAD: Atraumatic, normocephalic. Pupils equal, reactive to light. NECK: Supple. No JVD. LUNGS: Clear. CARDIOVASCULAR: S1, S2 is normal. Systolic murmur noted. ABDOMEN: Soft, nontender. Bowel sounds positive. No palpable mass. EXTREMITIES: No cyanosis, clubbing, or edema. 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, alert, no focal deficit neuro exam normal, able to lift legs today Unable to get up on feet due to pain Result Diagram: 03/23/17 0540 03/23/17 0540 Results 24 hrs Laboratory Tests Test 03/23/17 05:40 White Blood Count 7.2 Red Blood Count 2.53 L Hemoglobin 8.4 L Hematocrit 26.6 L Mean Corpuscular Volume 105.1 H Mean Corpuscular Hemoglobin 33.2 H Mean Corpuscular Hemoglobin Concent 31.6 L Red Cell Distribution Width 13.2 Platelet Count 229 # Mean Platelet Volume 9.9 Neutrophils % 84.1 H Lymphocytes % 9.5 L Monocytes % 5.1 Eosinophils % 0.7 Basophils % 0.3 Nucleated Red Blood Cells % 0.0 Neutrophils # 6.1 Lymphocytes # 0.7 L Monocytes # 0.4 Eosinophils # 0.1 Basophils # 0.0 Nucleated Red Blood Cells # 0.0 Sodium Level 140 Potassium Level 4.6 Chloride Level 97 Carbon Dioxide Level 26 Anion Gap 22 H Blood Urea Nitrogen 47 #H Creatinine 2.76 H Glucose Level 114 Calcium Level 8.7 Phosphorus Level 4.0 Magnesium Level 2.2 Medications Medications Current Medications Ondansetron HCl (Zofran Inj) 4 mg Q6H PRN IV NAUSEA AND/OR VOMITING; Start 03/21 at 10:00 Acetaminophen (Tylenol Tab) 650 mg Q6H PRN PO PAIN LEVEL 1-3 OR FEVER Last administered on 03/22/17 13:22; Admin Dose 650 MG; Start 03/21/17 at 10:00 Acetaminophen/ Hydrocodone Bitart ([place] (5/325)) 1 tab Q6H PRN PO MODERATE PAIN LEVEL 4-6 Last administered on 03/22/17 23:35; Admin Dose 1 TAB; Start 03/21 at 10:00 Bisacodyl (Dulcolax) 5 mg DAILY PRN PO CONSTIPATION; Start 03/21/17 at 10:00 Pantoprazole (Protonix Tab) 40 mg DAILY@06 PO Last administered on 03/22/17 06: 52; Admin Dose 40 MG; Start 03/22/17 at 06:00 Aspirin (Aspirin) 81 mg DAILY PO Last administered on 03/22/17 08:39; Admin Dose 81 MG; Start 03/22/17 at 09:00 Cholecalciferol (Vitamin D) 1,000 unit DAILY PO Last administered on 03/22/17 08:39; Admin Dose 1,000 UNIT; Start 03/22/17 at 09:00 Docusate Sodium (Colace) 100 mg BID PO Last administered on 03/22/17 08:39; Admin Dose 100 MG; Start 03/21/17 at 21:00 Folic Acid (Folic Acid) 1 mg DAILY PO Last administered on 03/22/17 08:39; Admin Dose 1 MG; Start 03/22/17 at 09:00 Loratadine (Claritin) 10 mg DAILY PRN PO PRN; Start 03/21/17 at 10:00 Multivit/Ca Carb/ B Cmplx/FA/Prenat (Diandra-Svetlana) 1 tab DAILY PO Last administered on 03/22/17 08:39; Admin Dose 1 TAB; Start 03/22/17 at 09:00 Acetaminophen (Tylenol Tab) 500 mg Q6H PRN PO PAIN AND OR ELEVATED TEMP Last administered on 03/22/17 21:16; Admin Dose 500 MG; Start 03/22/17 at 13:30 Methylprednisolone (Medrol) 8 mg HS PO ; Start 03/23/17 at 21:00; Stop 03/23/17 at 21:01 Methylprednisolone 4 mg 4 mg HS PO ; Start 03/24/17 at 21:00; Stop 03/26/17 at 21:01 Dextrose/Sodium Chloride (D5-1/2ns) 1,000 ml @ 50 mls/hr Q20H IV ; Start at 12:00; Status UNV Miscellaneous Information (* Miscellaneous Pharmacy Order) Discontinue current oral sulfonylur... ONCE ONCE XX ; Start 03/23/17 at 12:00; Stop 03/23/17 at 12:01 ; Status UNV Diagnostic Test (Pha) (Accu-Chek) 1 ea 02 XX ; Start 03/24/17 at 02:00; Status UNV Miscellaneous Information (* Miscellaneous Pharmacy Order) HYPOGLYCEMIA PROTOCOL w... ONCE ONCE XX ; Start 03/23/17 at 12:00; Stop 03/23/17 at 12:01; Status UNV Miscellaneous Information (* Miscellaneous Pharmacy Order) Discontinue all previ... ONCE ONCE XX ; Start 03/23/17 at 12:00; Stop 03/23/17 at 12:01; Status UNV Diagnostic Test (Pha) (Accu-Chek) 1 ea 02 XX ; Start 03/24/17 at 02:00; Status UNV NESTOR MEDINA MD Mar 23, 2017 11:59 NESTOR MEDINA MD Mar 23, 2017 11:59
[2017-03-23] MEDS ORDERED: DEXTROSE 5%-0.45% NACL 1,000 ML IV SCH (12:00)
[2017-03-23] MEDS: INSULIN ASPART [NOVOLOG] 3 ML PEN SC SCH ×3 (12:15→20:31)
[2017-03-23] MEDS: ACETAMINOPHEN 500 MG TAB PO PRN ×2 (12:59→20:20)
[2017-03-23] MEDS: ACCU-CHEK XX SCH ×2 (15:15→20:26)
[2017-03-23] MEDS ORDERED: GLUCAGON 1 MG INJ IM PRN (16:00)
[2017-03-23] MEDS ORDERED: GLUCOSE GEL 15 GRAM TUBE BUCCAL PRN (16:00)
[2017-03-23] MEDS ORDERED: GLUCOSE GEL 15 GRAM TUBE PO PRN ×2 (16:00)
[2017-03-23] MEDS ORDERED: DEXTROSE 50% 50 ML SYRINGE IV PRN ×2 (16:00)
[2017-03-23] MEDS: ATORVASTATIN 20 MG TAB PO SCH (20:20)
[2017-03-23] MEDS ORDERED: METHYLPREDNISOLONE 4 MG TAB PO SCH (21:00)
--- NOTE | 2017-03-23 21:59 | PN ---
DATE: The patient's seems to be begrudgingly and reluctantly better with less pain with Medrol Dosepak and nonsteroidal anti- inflammatory medications. Continue the same treatment. Since the epidural injection is not available in [facility], if she is persistently symptomatic with back pain then an epidural injection can be tried as an outpatient after discharge. Dictated By: In Sangeeta Lau MD /vaishali/[email or web address] /Document#: [id number]
[2017-03-23] MEDS: DEXTROSE 5%-0.45% NACL 1,000 ML IV SCH (23:36)
[2017-03-24] MEDS ORDERED: ACCU-CHEK XX SCH (02:00)
[2017-03-24] MEDS: ACCU-CHEK XX SCH ×4 (02:11→19:50)
[2017-03-24 02:45] VITALS: BP 114/64; RESP 18
[2017-03-24] MEDS: PANTOPRAZOLE (EC) 40 MG TAB PO SCH (06:00)
[2017-03-24] MEDS: LEVOTHYROXINE 50 MCG TAB PO SCH (06:36)
[2017-03-24 06:41] LABS: ABNORMAL IP MESSAGE 1; BASOPHILS % 0.3 % (0.0-2.0); EOSINOPHILS # 0.1 10^3/ul (0.0-0.5); EOSINOPHILS % 1.3 % (0.0-7.0); HEMATOCRIT 27.8 % (37.0-47.0); HEMOGLOBIN 8.9 g/dl (12.0-16.0); LYMPHOCYTES # 0.5 10^3/ul (0.8-2.9); LYMPHOCYTES % 4.4 % (15.0-51.0); MEAN CORPUSCULAR HEMOGLOBIN 32.4 pg (29.0-33.0); MEAN CORPUSCULAR VOLUME 101.1 fl (82.0-101.0); MEAN PLATELET VOLUME 9.4 fl (7.4-10.4); MONOCYTE # 0.8 10^3/ul (0.3-0.9); MONOCYTES % 7.5 % (0.0-11.0); NEUTROPHIL # 9.6 10^3/ul (1.6-7.5); PLATELET COUNT 247 10^3/UL (140-415); RED BLOOD COUNT 2.75 10^6/ul (4.20-5.40); RED CELL DISTRIBUTION WIDTH 13.4 % (11.5-14.5); WHITE BLOOD COUNT 11.1 10^3/ul (4.8-10.8)
[2017-03-24] MEDS ORDERED: VITAMIN A & D 5 GM OINT PACKET TOP ONE (06:42)
[2017-03-24 06:58] LABS: POSITIVE DIFF @See below
[2017-03-24 07:08] LABS: CALCIUM 9.3 mg/dl (8.4-10.2); CREATININE 2.14 mg/dl (0.44-1.00); POTASSIUM 4.3 mmol/L (3.5-5.1)
[2017-03-24 07:16] LABS: MAGNESIUM 2.2 mg/dl (1.7-2.5); PHOSPHORUS 2.8 mg/dl (2.5-4.9)
[2017-03-24] MEDS: METHYLPREDNISOLONE 4 MG TAB PO SCH ×4 (08:00→21:27)
[2017-03-24 08:05] VITALS: BP 142/70; RESP 16
[2017-03-24] MEDS: CALCIUM ACETATE 667 MG CAP PO SCH ×3 (08:15→17:27)
[2017-03-24] MEDS: morphine 2 MG INJ IV PRN ×2 (08:45→18:35)
[2017-03-24] MEDS: INSULIN ASPART [NOVOLOG] 3 ML PEN SC SCH ×4 (08:55→21:44)
[2017-03-24] MEDS: ASPIRIN 81 MG TAB PO SCH (08:56)
[2017-03-24] MEDS: FOLIC ACID 1 MG TAB PO SCH (08:57)
[2017-03-24] MEDS: DOCUSATE SODIUM 100 MG CAP PO SCH ×2 (08:57→21:27)
[2017-03-24] MEDS: MULTIVIT/CA CARB/B CMPLX/FA TAB PO SCH (08:57)
[2017-03-24] MEDS: CHOLECALCIFEROL 1,000 UNIT TAB PO SCH (09:00)
[2017-03-24 16:13] VITALS: BP 150/64; RESP 18
--- NOTE | 2017-03-24 19:41 | PN ---
Date/Time of Note Date/Time of Note DATE: 03/24/17 TIME: 19:40 Assessment/Plan VTE Prophylaxis VTE Prophylaxis Intervention: other Lines/Catheters IV Catheter Type (from Nrs): Central line still needed: No Urinary Cath still in place: No Assessment/Plan Chief Complaint/Hosp Course This is an 86-year-old female with a history of end-stage renal disease currently on dialysis per right upper extremity AV fistula patient was found to have bleeding from the fistula after dialysis with a concern for possible central venous stenosis Plan for fistulogram and possible angioplasty RUE AVF plan for fistulogram tomorrow Problems: Subjective 24 Hr Interval Summary Gastrointestinal: no complaints Genitourinary: no complaints Musculoskeletal: no complaints Neurologic: no complaints Exam/Review of Systems Vital Signs Vitals Vital Signs Date Time Temp Pulse Resp B/P Pulse Ox O2 Delivery O2 Flow Rate FiO2 03/24/17 16:13 98.9 81 18 150/64 93 Intake and Output 03/23/17 03/23/17 03/24/17 15:00 23:00 07:00 Intake Total 500 ml 240 ml 790 ml Output Total 2500 ml Balance -2000 ml 240 ml 790 ml Exam Neck: non-tender, supple Respiratory: clear to auscultation, normal air movement Cardiovascular: nl pulses, regular rate and rhythm Gastrointestinal: nl liver, spleen, non-tender, soft Results Result Diagram: 03/24/17 0552 03/24/17 0544 Results 24 hrs Laboratory Tests Test 03/23/17 20:25 03/24/17 02:04 03/24/17 05:44 03/24/17 05:52 Bedside Glucose 194 161 Sodium Level 142 Potassium Level 4.3 Chloride Level 100 Carbon Dioxide Level 27 Anion Gap 19 H Blood Urea Nitrogen 38 H Creatinine 2.14 H Glucose Level 189 Calcium Level 9.3 Phosphorus Level 2.8 Magnesium Level 2.2 White Blood Count 11.1 #H Red Blood Count 2.75 L Hemoglobin 8.9 L Hematocrit 27.8 L Mean Corpuscular Volume 101.1 H Mean Corpuscular Hemoglobin 32.4 Mean Corpuscular Hemoglobin Concent 32.0 Red Cell Distribution Width 13.4 Platelet Count 247 Mean Platelet Volume 9.4 Neutrophils % 86.0 H Lymphocytes % 4.4 L Monocytes % 7.5 Eosinophils % 1.3 Basophils % 0.3 Nucleated Red Blood Cells % 0.0 Neutrophils # 9.6 H Lymphocytes # 0.5 L Monocytes # 0.8 Eosinophils # 0.1 Basophils # 0.0 Nucleated Red Blood Cells # 0.0 Test 03/24/17 08:12 03/24/17 10:56 03/24/17 12:11 03/24/17 15:38 Bedside Glucose 190 173 173 151 Test 03/24/17 17:25 Bedside Glucose 141 Medications Medications Current Medications Ondansetron HCl (Zofran Inj) 4 mg Q6H PRN IV NAUSEA AND/OR VOMITING; Start 03/21 at 10:00 Acetaminophen (Tylenol Tab) 650 mg Q6H PRN PO PAIN LEVEL 1-3 OR FEVER Last administered on 03/22/17 13:22; Admin Dose 650 MG; Start 03/21/17 at 10:00 Acetaminophen/ Hydrocodone Bitart ([place] (5/325)) 1 tab Q6H PRN PO MODERATE PAIN LEVEL 4-6 Last administered on 03/22/17 23:35; Admin Dose 1 TAB; Start 03/21 at 10:00 Bisacodyl (Dulcolax) 5 mg DAILY PRN PO CONSTIPATION; Start 03/21/17 at 10:00 Pantoprazole (Protonix Tab) 40 mg DAILY@06 PO Last administered on 03/22/17 06: 52; Admin Dose 40 MG; Start 03/22/17 at 06:00 Aspirin (Aspirin) 81 mg DAILY PO Last administered on 03/22/17 08:39; Admin Dose 81 MG; Start 03/22/17 at 09:00 Cholecalciferol (Vitamin D) 1,000 unit DAILY PO Last administered on 03/22/17 08:39; Admin Dose 1,000 UNIT; Start 03/22/17 at 09:00 Docusate Sodium (Colace) 100 mg BID PO Last administered on 03/22/17 08:39; Admin Dose 100 MG; Start 03/21/17 at 21:00 Folic Acid (Folic Acid) 1 mg DAILY PO Last administered on 03/22/17 08:39; Admin Dose 1 MG; Start 03/22/17 at 09:00 Loratadine (Claritin) 10 mg DAILY PRN PO PRN; Start 03/21/17 at 10:00 Multivit/Ca Carb/ B Cmplx/FA/Prenat (Diandra-Svetlana) 1 tab DAILY PO Last administered on 03/22/17 08:39; Admin Dose 1 TAB; Start 03/22/17 at 09:00 Acetaminophen (Tylenol Tab) 500 mg Q6H PRN PO PAIN AND OR ELEVATED TEMP Last administered on 03/23/17 20:20; Admin Dose 500 MG; Start 03/22/17 at 13:30 Methylprednisolone (Medrol) 4 mg HS PO ; Start 03/24/17 at 21:00; Stop 03/26/17 at 21:01 Diagnostic Test (Pha) (Accu-Chek) 1 ea 02 XX Last administered on 03/24/17 02: 11; Admin Dose 1 EA; Start 03/24/17 at 02:00 Atorvastatin Calcium (Lipitor) 20 mg HS PO Last administered on 03/23/17 20:20 ; Admin Dose 20 MG; Start 03/23/17 at 21:00 Miscellaneous Information 1 ea NOTE XX ; Start 03/23/17 at 16:00 Glucose (Glutose) 15 gm Q15M PRN PO DECREASED GLUCOSE; Start 03/23/17 at 16:00 Glucose (Glutose) 22.5 gm Q15M PRN PO DECREASED GLUCOSE; Start 03/23/17 at 16:00 Dextrose (D50w Syringe) 25 ml Q15M PRN IV DECREASED GLUCOSE; Start 03/23/17 at 16:00 Dextrose (D50w Syringe) 50 ml Q15M PRN IV DECREASED GLUCOSE; Start 03/23/17 at 16:00 Glucagon (Glucagen) 1 mg Q15M PRN IM DECREASED GLUCOSE; Start 03/23/17 at 16:00 Glucose 15 gm 15 gm Q15M PRN BUCCAL DECREASED GLUCOSE; Start 03/23/17 at 16:00 Dextrose/Sodium Chloride (D5-1/2ns) 1,000 ml @ 30 mls/hr Q24H IV Last administered on 03/23/17 23:36; Admin Dose 30 MLS/HR; Start 03/23/17 at 22:00 Morphine Sulfate (morphine) 2 mg Q8H PRN IV PAIN Last administered on 18:35; Admin Dose 2 MG; Start 03/24/17 at 07:00 MARGO MARIN MD Mar 24, 2017 19:41
--- NOTE | 2017-03-24 19:42 | PN ---
Date/Time of Note Date/Time of Note DATE: 03/24/17 TIME: 19:38 Assessment/Plan VTE Prophylaxis VTE Prophylaxis Intervention: SCD's Lines/Catheters IV [facility] Saline Lock Urinary Cath still in place: No Assessment/Plan Chief Complaint/Hosp Course MPRESSION: 1. Recurrent AV graft bleeding r/o central stenosis pending Fistulogram 2 Acute exacerbation of chronic lumbar pain on Medrol dose pack/celecoxib 2. ESRD. 3. Hypertension. 4. Diabetes mellitus. 5. Atherosclerotic heart disease. 6. History of breast cancer with mastectomy, left. 7. History of humerus fracture, left in the past. 8. History of compression fracture of the vertebra L1. 9. History of dyslipidemia. 10. History of CAD. 11. History of osteoporosis. Plan - Fistulgram today per Dr Pederson who revaluated pt at bedside, there is posterior part of fistula which can be used for HD access - HD M/W/F ; next tmw - Acetaminophen extra strength for pain - Medrol dose pack per Dr Lau( appreciate consult and NSAID( however held due to renal failure) - ISS while on Medrol dose pack - Labs tmw - Pain control Problems: Subjective 24 Hr Interval Summary Free Text/Dictation Pt scheduled for fistulogram today Oozing note Exam/Review of Systems Vital Signs Vitals Vital Signs Date Time Temp Pulse Resp B/P Pulse Ox O2 Delivery O2 Flow Rate FiO2 03/24/17 16:13 98.9 81 18 150/64 93 Intake and Output 03/23/17 03/23/17 03/24/17 15:00 23:00 07:00 Intake Total 500 ml 240 ml 790 ml Output Total 2500 ml Balance -2000 ml 240 ml 790 ml Results HEAD: Atraumatic, normocephalic. Pupils equal, reactive to light. NECK: Supple. No JVD. LUNGS: Clear. CARDIOVASCULAR: S1, S2 is normal. Systolic murmur noted. ABDOMEN: Soft, nontender. Bowel sounds positive. No palpable mass. EXTREMITIES: No cyanosis, clubbing, or edema. 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, alert, no focal deficit neuro exam normal Result Diagram: 03/24/17 0552 03/24/17 0544 Results 24 hrs Laboratory Tests Test 03/23/17 20:25 03/24/17 02:04 03/24/17 05:44 03/24/17 05:52 Bedside Glucose 194 161 Sodium Level 142 Potassium Level 4.3 Chloride Level 100 Carbon Dioxide Level 27 Anion Gap 19 H Blood Urea Nitrogen 38 H Creatinine 2.14 H Glucose Level 189 Calcium Level 9.3 Phosphorus Level 2.8 Magnesium Level 2.2 White Blood Count 11.1 #H Red Blood Count 2.75 L Hemoglobin 8.9 L Hematocrit 27.8 L Mean Corpuscular Volume 101.1 H Mean Corpuscular Hemoglobin 32.4 Mean Corpuscular Hemoglobin Concent 32.0 Red Cell Distribution Width 13.4 Platelet Count 247 Mean Platelet Volume 9.4 Neutrophils % 86.0 H Lymphocytes % 4.4 L Monocytes % 7.5 Eosinophils % 1.3 Basophils % 0.3 Nucleated Red Blood Cells % 0.0 Neutrophils # 9.6 H Lymphocytes # 0.5 L Monocytes # 0.8 Eosinophils # 0.1 Basophils # 0.0 Nucleated Red Blood Cells # 0.0 Test 03/24/17 08:12 03/24/17 10:56 03/24/17 12:11 03/24/17 15:38 Bedside Glucose 190 173 173 151 Test 03/24/17 17:25 Bedside Glucose 141 Medications Medications Current Medications Ondansetron HCl (Zofran Inj) 4 mg Q6H PRN IV NAUSEA AND/OR VOMITING; Start 03/21 at 10:00 Acetaminophen (Tylenol Tab) 650 mg Q6H PRN PO PAIN LEVEL 1-3 OR FEVER Last administered on 03/22/17 13:22; Admin Dose 650 MG; Start 03/21/17 at 10:00 Acetaminophen/ Hydrocodone Bitart ([place] (5/325)) 1 tab Q6H PRN PO MODERATE PAIN LEVEL 4-6 Last administered on 03/22/17 23:35; Admin Dose 1 TAB; Start 03/21 at 10:00 Bisacodyl (Dulcolax) 5 mg DAILY PRN PO CONSTIPATION; Start 03/21/17 at 10:00 Pantoprazole (Protonix Tab) 40 mg DAILY@06 PO Last administered on 03/22/17 06: 52; Admin Dose 40 MG; Start 03/22/17 at 06:00 Aspirin (Aspirin) 81 mg DAILY PO Last administered on 03/22/17 08:39; Admin Dose 81 MG; Start 03/22/17 at 09:00 Cholecalciferol (Vitamin D) 1,000 unit DAILY PO Last administered on 03/22/17 08:39; Admin Dose 1,000 UNIT; Start 03/22/17 at 09:00 Docusate Sodium (Colace) 100 mg BID PO Last administered on 03/22/17 08:39; Admin Dose 100 MG; Start 03/21/17 at 21:00 Folic Acid (Folic Acid) 1 mg DAILY PO Last administered on 03/22/17 08:39; Admin Dose 1 MG; Start 03/22/17 at 09:00 Loratadine (Claritin) 10 mg DAILY PRN PO PRN; Start 03/21/17 at 10:00 Multivit/Ca Carb/ B Cmplx/FA/Prenat (Diandra-Svetlana) 1 tab DAILY PO Last administered on 03/22/17 08:39; Admin Dose 1 TAB; Start 03/22/17 at 09:00 Acetaminophen (Tylenol Tab) 500 mg Q6H PRN PO PAIN AND OR ELEVATED TEMP Last administered on 03/23/17 20:20; Admin Dose 500 MG; Start 03/22/17 at 13:30 Methylprednisolone (Medrol) 4 mg HS PO ; Start 03/24/17 at 21:00; Stop 03/26/17 at 21:01 Diagnostic Test (Pha) (Accu-Chek) 1 ea 02 XX Last administered on 03/24/17 02: 11; Admin Dose 1 EA; Start 03/24/17 at 02:00 Atorvastatin Calcium (Lipitor) 20 mg HS PO Last administered on 03/23/17 20:20 ; Admin Dose 20 MG; Start 03/23/17 at 21:00 Miscellaneous Information 1 ea NOTE XX ; Start 03/23/17 at 16:00 Glucose (Glutose) 15 gm Q15M PRN PO DECREASED GLUCOSE; Start 03/23/17 at 16:00 Glucose (Glutose) 22.5 gm Q15M PRN PO DECREASED GLUCOSE; Start 03/23/17 at 16:00 Dextrose (D50w Syringe) 25 ml Q15M PRN IV DECREASED GLUCOSE; Start 03/23/17 at 16:00 Dextrose (D50w Syringe) 50 ml Q15M PRN IV DECREASED GLUCOSE; Start 03/23/17 at 16:00 Glucagon (Glucagen) 1 mg Q15M PRN IM DECREASED GLUCOSE; Start 03/23/17 at 16:00 Glucose 15 gm 15 gm Q15M PRN BUCCAL DECREASED GLUCOSE; Start 03/23/17 at 16:00 Dextrose/Sodium Chloride (D5-1/2ns) 1,000 ml @ 30 mls/hr Q24H IV Last administered on 03/23/17 23:36; Admin Dose 30 MLS/HR; Start 03/23/17 at 22:00 Morphine Sulfate (morphine) 2 mg Q8H PRN IV PAIN Last administered on 18:35; Admin Dose 2 MG; Start 03/24/17 at 07:00 NESTOR MEDINA MD Mar 24, 2017 19:42
[2017-03-24 20:24] VITALS: BP 143/60; RESP 16
[2017-03-24] MEDS: ATORVASTATIN 20 MG TAB PO SCH (21:27)
[2017-03-24] MEDS: ACETAMINOPHEN 500 MG TAB PO PRN (21:28)
[2017-03-25] VITALS (12 sets, daily range): BP systolic 95–185; BP diastolic 49–78; PULSE 80–87; RESP 16–18
[2017-03-25] MEDS: DEXTROSE 5%-0.45% NACL 1,000 ML IV SCH (00:50)
[2017-03-25] MEDS: ACCU-CHEK XX SCH ×4 (02:55→19:50)
[2017-03-25] MEDS: PANTOPRAZOLE (EC) 40 MG TAB PO SCH (05:44)
[2017-03-25] MEDS: LEVOTHYROXINE 50 MCG TAB PO SCH (05:45)
[2017-03-25 06:11] LABS: ALBUMIN 3.2 g/dl (3.3-4.9); ALBUMIN/GLOBULIN RATIO 1.1; BASOPHILS % 0.2 % (0.0-2.0); BILIRUBIN,INDIRECT 0.3 mg/dl (0-1.1); BILIRUBIN,TOTAL 0.3 mg/dl (0.2-1.3); CALCIUM 8.5 mg/dl (8.4-10.2); CREATININE 2.46 mg/dl (0.44-1.00); EOSINOPHILS # 0.2 10^3/ul (0.0-0.5); EOSINOPHILS % 2.3 % (0.0-7.0); HEMATOCRIT 23.8 % (37.0-47.0); HEMOGLOBIN 7.5 g/dl (12.0-16.0); LYMPHOCYTES # 0.7 10^3/ul (0.8-2.9); LYMPHOCYTES % 7.3 % (15.0-51.0); MEAN CORPUSCULAR HEMOGLOBIN 32.8 pg (29.0-33.0); MEAN CORPUSCULAR HGB CONC 31.5 g/dl (32.0-37.0); MEAN CORPUSCULAR VOLUME 103.9 fl (82.0-101.0); MEAN PLATELET VOLUME 9.7 fl (7.4-10.4); NEUTROPHIL # 7.5 10^3/ul (1.6-7.5); NEUTROPHILS % 79.7 % (39.0-77.0); PLATELET COUNT 211 10^3/UL (140-415); POTASSIUM 4.6 mmol/L (3.5-5.1); RED BLOOD COUNT 2.29 10^6/ul (4.20-5.40); TOTAL PROTEIN 6.1 g/dl (6.1-8.1); WHITE BLOOD COUNT 9.5 10^3/ul (4.8-10.8)
[2017-03-25] MEDS: INSULIN ASPART [NOVOLOG] 3 ML PEN SC SCH ×4 (07:48→21:26)
[2017-03-25] MEDS: CALCIUM ACETATE 667 MG CAP PO SCH ×3 (07:49→18:24)
[2017-03-25] MEDS: METHYLPREDNISOLONE 4 MG TAB PO SCH ×3 (07:49→20:54)
[2017-03-25] MEDS: ASPIRIN 81 MG TAB PO SCH (08:03)
[2017-03-25] MEDS: DOCUSATE SODIUM 100 MG CAP PO SCH ×2 (08:03→20:54)
[2017-03-25] MEDS: CHOLECALCIFEROL 1,000 UNIT TAB PO SCH (08:04)
[2017-03-25] MEDS: MULTIVIT/CA CARB/B CMPLX/FA TAB PO SCH (08:04)
[2017-03-25] MEDS: FOLIC ACID 1 MG TAB PO SCH (08:04)
[2017-03-25] MEDS ORDERED: DIPHENHYDRAMINE 50 MG INJ ONE (11:23)
[2017-03-25] MEDS ORDERED: METHYLPREDNISOLONE 125 MG INJ ONE (11:23)
[2017-03-25] MEDS ORDERED: FENTAnyl 50 MCG/ML VIAL ONE (11:29)
[2017-03-25] MEDS ORDERED: MIDAZOLAM 1 MG/ML 2 ML INJ ONE (11:44)
[2017-03-25] MEDS: ACETAMINOPHEN 325 MG TAB PO PRN ×2 (15:12→21:21)
--- NOTE | 2017-03-25 15:12 | PN ---
Date/Time of Note Date/Time of Note DATE: 03/25/17 TIME: 15:08 Assessment/Plan VTE Prophylaxis VTE Prophylaxis Intervention: contraindicated VTE Contraindication Reason: bleeding Lines/Catheters IV Catheter Type (from Nrsg): Saline Lock Urinary Cath still in place: No Assessment/Plan Chief Complaint/Hosp Course IMPRESSION: 1. Recurrent AV graft bleeding r/o central stenosis pending Fistulogram 2 Acute exacerbation of chronic lumbar pain on Medrol dose pack 2. ESRD. 3. Hypertension. 4. Diabetes mellitus. 5. Atherosclerotic heart disease. 6. History of breast cancer with mastectomy, left. 7. History of humerus fracture, left in the past. 8. History of compression fracture of the vertebra L1. 9. History of dyslipidemia. 10. History of CAD. 11. History of osteoporosis. Plan - Fistulgram today per Dr Pederson then HD - HD M/W/F - Acetaminophen extra strength for pain /Morphine - Medrol dose pack per Dr Lau - PT - ISS while on Medrol dose pack - Labs tmw - Pain control - Pt will likely need SNIF placement Problems: Subjective 24 Hr Interval Summary Free Text/Dictation Pt was seen in am Due for fistulogram today HD today Pt is frustrated about being NPO, explained to her as she needs procedure Exam/Review of Systems Vital Signs Vitals Vital Signs Date Time Temp Pulse Resp B/P Pulse Ox O2 Delivery O2 Flow Rate FiO2 03/25/17 14:17 98.4 70 16 99/49 100 Intake and Output 03/24/17 03/24/17 03/25/17 15:00 23:00 07:00 Intake Total 750 ml 270 ml Balance 750 ml 270 ml Results HEAD: Atraumatic, normocephalic. Pupils equal, reactive to light. NECK: Supple. No JVD. LUNGS: Clear. CARDIOVASCULAR: S1, S2 is normal. Systolic murmur noted. ABDOMEN: Soft, nontender. Bowel sounds positive. No palpable mass. EXTREMITIES: No cyanosis, clubbing, or edema. 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, Result Diagram: 03/25/1752103/25/17521 Results 24 hrs Laboratory Tests Test 03/24/17 15:38 03/24/17 17:25 03/24/17 20:10 03/24/17 21:31 Bedside Glucose 151 141 168 181 Test 03/25/17 02:21 03/25/17 05:22 03/25/17 07:47 03/25/17 13:57 Bedside Glucose 164 137 137 White Blood Count 9.5 Red Blood Count 2.29 L Hemoglobin 7.5 L Hematocrit 23.8 L Mean Corpuscular Volume 103.9 H Mean Corpuscular Hemoglobin 32.8 Mean Corpuscular Hemoglobin Concent 31.5 L Red Cell Distribution Width 14.0 Platelet Count 211 Mean Platelet Volume 9.7 Neutrophils % 79.7 H Lymphocytes % 7.3 L Monocytes % 10.0 Eosinophils % 2.3 Basophils % 0.2 Nucleated Red Blood Cells % 0.0 Neutrophils # 7.5 Lymphocytes # 0.7 L Monocytes # 1.0 H Eosinophils # 0.2 Basophils # 0.0 Nucleated Red Blood Cells # 0.0 Sodium Level 136 Potassium Level 4.6 Chloride Level 97 Carbon Dioxide Level 25 Anion Gap 19 H Blood Urea Nitrogen 55 H Creatinine 2.46 H Glucose Level 167 Calcium Level 8.5 Total Bilirubin 0.3 Direct Bilirubin 0.00 Indirect Bilirubin 0.3 Aspartate Amino Transf (AST/SGOT) 25 Alanine Aminotransferase (ALT/SGPT) 30 Alkaline Phosphatase 63 Total Protein 6.1 Albumin 3.2 L Globulin 2.90 Albumin/Globulin Ratio 1.10 Medications Medications Current Medications Ondansetron HCl (Zofran Inj) 4 mg Q6H PRN IV NAUSEA AND/OR VOMITING; Start 03/21 at 10:00 Acetaminophen (Tylenol Tab) 650 mg Q6H PRN PO PAIN LEVEL 1-3 OR FEVER Last administered on 03/22/17 13:22; Admin Dose 650 MG; Start 03/21/17 at 10:00 Acetaminophen/ Hydrocodone Bitart ([place] (5/325)) 1 tab Q6H PRN PO MODERATE PAIN LEVEL 4-6 Last administered on 03/22/17 23:35; Admin Dose 1 TAB; Start 03/21 at 10:00 Bisacodyl (Dulcolax) 5 mg DAILY PRN PO CONSTIPATION; Start 03/21/17 at 10:00 Pantoprazole (Protonix Tab) 40 mg DAILY@06 PO Last administered on 03/22/17 06: 52; Admin Dose 40 MG; Start 03/22/17 at 06:00 Aspirin (Aspirin) 81 mg DAILY PO Last administered on 03/22/17 08:39; Admin Dose 81 MG; Start 03/22/17 at 09:00 Cholecalciferol (Vitamin D) 1,000 unit DAILY PO Last administered on 03/22/17 08:39; Admin Dose 1,000 UNIT; Start 03/22/17 at 09:00 Docusate Sodium (Colace) 100 mg BID PO Last administered on 03/24/17 21:27; Admin Dose 100 MG; Start 03/21/17 at 21:00 Folic Acid (Folic Acid) 1 mg DAILY PO Last administered on 03/22/17 08:39; Admin Dose 1 MG; Start 03/22/17 at 09:00 Loratadine (Claritin) 10 mg DAILY PRN PO PRN; Start 03/21/17 at 10:00 Multivit/Ca Carb/ B Cmplx/FA/Prenat (Diandra-Svetlana) 1 tab DAILY PO Last administered on 03/22/17 08:39; Admin Dose 1 TAB; Start 03/22/17 at 09:00 Acetaminophen (Tylenol Tab) 500 mg Q6H PRN PO PAIN AND OR ELEVATED TEMP Last administered on 03/24/17 21:28; Admin Dose 500 MG; Start 03/22/17 at 13:30 Methylprednisolone (Medrol) 4 mg HS PO Last administered on 03/24/17 21:27; Admin Dose 4 MG; Start 03/24/17 at 21:00; Stop 03/26/17 at 21:01 Diagnostic Test (Pha) (Accu-Chek) 1 ea 02 XX Last administered on 03/25/17 02: 55; Admin Dose 1 EA; Start 03/24/17 at 02:00 Atorvastatin Calcium (Lipitor) 20 mg HS PO Last administered on 03/24/17 21:27 ; Admin Dose 20 MG; Start 03/23/17 at 21:00 Miscellaneous Information 1 ea NOTE XX ; Start 03/23/17 at 16:00 Glucose (Glutose) 15 gm Q15M PRN PO DECREASED GLUCOSE; Start 03/23/17 at 16:00 Glucose (Glutose) 22.5 gm Q15M PRN PO DECREASED GLUCOSE; Start 03/23/17 at 16:00 Dextrose (D50w Syringe) 25 ml Q15M PRN IV DECREASED GLUCOSE; Start 03/23/17 at 16:00 Dextrose (D50w Syringe) 50 ml Q15M PRN IV DECREASED GLUCOSE; Start 03/23/17 at 16:00 Glucagon (Glucagen) 1 mg Q15M PRN IM DECREASED GLUCOSE; Start 03/23/17 at 16:00 Glucose 15 gm 15 gm Q15M PRN BUCCAL DECREASED GLUCOSE; Start 03/23/17 at 16:00 Dextrose/Sodium Chloride (D5-1/2ns) 1,000 ml @ 30 mls/hr Q24H IV Last administered on 03/25/17 00:50; Admin Dose 30 MLS/HR; Start 03/23/17 at 22:00 Morphine Sulfate (morphine) 2 mg Q8H PRN IV PAIN Last administered on 18:35; Admin Dose 2 MG; Start 03/24/17 at 07:00 NESTOR MEDINA MD Mar 25, 2017 15:12
[2017-03-25] MEDS: ATORVASTATIN 20 MG TAB PO SCH (20:54)
[2017-03-26] MEDS: DEXTROSE 5%-0.45% NACL 1,000 ML IV SCH (00:35)
[2017-03-26] MEDS: ACCU-CHEK XX SCH ×4 (02:00→20:57)
[2017-03-26 02:30] VITALS: BP 130/70; RESP 18
[2017-03-26] MEDS: ACETAMINOPHEN 325 MG TAB PO PRN ×2 (04:41→16:03)
[2017-03-26 05:56] LABS: ABNORMAL IP MESSAGE 1; BASOPHILS % 0.1 % (0.0-2.0); EOSINOPHILS % 0.1 % (0.0-7.0); HEMATOCRIT 23.9 % (37.0-47.0); HEMOGLOBIN 7.6 g/dl (12.0-16.0); LYMPHOCYTES # 0.3 10^3/ul (0.8-2.9); LYMPHOCYTES % 2.2 % (15.0-51.0); MEAN CORPUSCULAR HEMOGLOBIN 32.2 pg (29.0-33.0); MEAN CORPUSCULAR HGB CONC 31.8 g/dl (32.0-37.0); MEAN CORPUSCULAR VOLUME 101.3 fl (82.0-101.0); MEAN PLATELET VOLUME 9.6 fl (7.4-10.4); MONOCYTE # 0.5 10^3/ul (0.3-0.9); MONOCYTES % 4.2 % (0.0-11.0); NEUTROPHIL # 10.8 10^3/ul (1.6-7.5); NEUTROPHILS % 92.7 % (39.0-77.0); PLATELET COUNT 203 10^3/UL (140-415); RED BLOOD COUNT 2.36 10^6/ul (4.20-5.40); WHITE BLOOD COUNT 11.6 10^3/ul (4.8-10.8)
[2017-03-26 06:02] LABS: CALCIUM 8.4 mg/dl (8.4-10.2); CREATININE 1.86 mg/dl (0.44-1.00); POTASSIUM 3.2 mmol/L (3.5-5.1)
[2017-03-26] MEDS: PANTOPRAZOLE (EC) 40 MG TAB PO SCH (06:04)
[2017-03-26] MEDS: LEVOTHYROXINE 50 MCG TAB PO SCH (06:04)
[2017-03-26 06:21] LABS: POSITIVE DIFF @See below
[2017-03-26 08:01] VITALS: BP 88/44; RESP 18
[2017-03-26] MEDS: ASPIRIN 81 MG TAB PO SCH (08:42)
[2017-03-26] MEDS: CALCIUM ACETATE 667 MG CAP PO SCH ×3 (08:42→17:19)
[2017-03-26] MEDS: MULTIVIT/CA CARB/B CMPLX/FA TAB PO SCH (08:42)
[2017-03-26] MEDS: CHOLECALCIFEROL 1,000 UNIT TAB PO SCH (08:42)
[2017-03-26] MEDS: FOLIC ACID 1 MG TAB PO SCH (08:42)
[2017-03-26] MEDS: METHYLPREDNISOLONE 4 MG TAB PO SCH ×2 (08:42→20:55)
[2017-03-26] MEDS: DOCUSATE SODIUM 100 MG CAP PO SCH ×2 (08:42→20:55)
[2017-03-26] MEDS: INSULIN ASPART [NOVOLOG] 3 ML PEN SC SCH ×4 (08:50→21:12)
--- NOTE | 2017-03-26 10:41 | PN ---
Date/Time of Note Date/Time of Note DATE: 03/26/17 TIME: 10:25 Assessment/Plan Lines/Catheters IV Catheter Type (from Nrsg): Peripheral IV Marie in Place (from Nrsg): No Assessment/Plan Chief Complaint/Hosp Course fistulogram and possible angioplasty RUE AVF SP for fistulogram No evidence of bleeding will continue dialysis Problems: Subjective 24 Hr Interval Summary Constitutional: improved Pain Control: mild Exam/Review of Systems Vital Signs Vitals Vital Signs Date Time Temp Pulse Resp B/P Pulse Ox O2 Delivery O2 Flow Rate FiO2 03/26/17 08:01 99.7 87 18 88/44 91 Intake and Output 03/25/17 03/25/17 03/26/17 15:00 23:00 07:00 Intake Total 180 ml 1670 ml 480 ml Output Total 2500 ml Balance 180 ml -830 ml 480 ml Exam ENMT: mucosa pink and moist, nl external ears & nose, nl lips & teeth, nl nasal mucosa & septum Neck: non-tender, supple Respiratory: clear to auscultation, normal air movement Cardiovascular: nl pulses, regular rate and rhythm Gastrointestinal: nl liver, spleen, non-tender, soft Results Result Diagram: 03/26/1751003/26/17510 MARGO MARIN MD Mar 26, 2017 10:39
--- NOTE | 2017-03-26 11:56 | OPR ---
Date/Time of Note Date/Time of Note DATE: 03/26/17 TIME: 11:51 Operative Report Procedure Date: Mar 25, 2017 Preoperative Diagnosis Dysfunctional right upper extremity AV fistula Postoperative Diagnosis Same Operation Performed Right subclavian vein angioplasty 12 x 40 mm balloo superior vena cava angioplastyn 12 x 40 mm balloon Superior venacavogram Indication for visual superior venacavogram and balloon angioplasty Right arm fistulogram Control of bleeding fistula/brachial artery Surgeon: MARGO MARIN MD Anesthesia Type: MAC Estimated Blood Loss: 10 - 50 ml's Transfusion Required: no Specimen: none Grafts/Implants: none Complications: no Pt Condition Post Procedure: stable Disposition: PACU Indications Dysfunctional right upper extremity AV fistula Operative\Procedure Findings Dictated Procedure Description Patient was placed in supine position prepped and draped in usual sterile fashion Timeout was called and I started Bleeding was noted to be coming from the right arm AV fistula/brachial artery Control of bleeding was obtained by finger pressure 3-0 Vicryl suture was applied to the brachial artery/fistula in a horizontal fashion interrupted manner 3 sutures bleeding stopped Access was gained the right arm AV fistula in the mid aspect of the fistula 4 Maori catheter was advanced over a guidewire Fistulogram was then done The fistula appeared to be patent Superior venacavogram revealed a 70% stenosis in the right subclavian vein/ inferior vena cava Over Sylvester wire the superior vena cava and the subclavian vein was angioplastied using a 12 x 40 mm balloon Final venogram revealed less than 30% stenosis in this area The sheath was removed Entrance site was closed using a single 3-0 Vicryl suture suturing fashion interrupted fashion Patient tolerated procedure well She had a strong thrill and bruit over the fistula MARGO MARIN MD Mar 26, 2017 11:55
[2017-03-26] MEDS ORDERED: POTASSIUM CHLORIDE 20 MEQ POWDER FOR ORAL SOLN PO ONE (12:00)
--- NOTE | 2017-03-26 12:03 | PN ---
Date/Time of Note Date/Time of Note DATE: 03/26/17 TIME: 12:01 Assessment/Plan VTE Prophylaxis VTE Prophylaxis Intervention: SCD's Lines/Catheters IV [facility] Type (from [email or web address] Peripheral IV Urinary Cath still in place: No Assessment/Plan Chief Complaint/Hosp Course 1. ESRD 2. malnourishment 3. DM type II 3. S/p fistulogram Problems: Assessment/Plan 1. Support BP 2. Continue BOOSt BID 3. Better DM type II control 4. replacement of electrolytes Subjective 24 Hr Interval Summary Constitutional: no complaints Exam/Review of Systems Vital Signs Vitals Vital Signs Date Time Temp Pulse Resp B/P Pulse Ox O2 Delivery O2 Flow Rate FiO2 03/26/17 08:01 99.7 87 18 88/44 91 Intake and Output 03/25/17 03/25/17 03/26/17 15:00 23:00 07:00 Intake Total 180 ml 1670 ml 480 ml Output Total 2500 ml Balance 180 ml -830 ml 480 ml Exam Constitutional: alert, oriented Neck: supple Cardiovascular: regular rate and rhythm Gastrointestinal: soft Skin: other (anemic) Results Result Diagram: 03/26/17 0511 03/26/17 0511 Results 24 hrs Laboratory Tests Test 03/25/17 13:57 03/25/17 15:16 03/25/17 18:21 03/25/17 20:00 Bedside Glucose 137 208 190 210 Test 03/25/17 21:23 03/26/17 01:56 03/26/17 05:11 03/26/17 08:16 Bedside Glucose 210 167 171 White Blood Count 11.6 #H Red Blood Count 2.36 L Hemoglobin 7.6 L Hematocrit 23.9 L Mean Corpuscular Volume 101.3 H Mean Corpuscular Hemoglobin 32.2 Mean Corpuscular Hemoglobin Concent 31.8 L Red Cell Distribution Width 14.0 Platelet Count 203 Mean Platelet Volume 9.6 Neutrophils % 92.7 H Lymphocytes % 2.2 L Monocytes % 4.2 Eosinophils % 0.1 Basophils % 0.1 Nucleated Red Blood Cells % 0.0 Neutrophils # 10.8 H Lymphocytes # 0.3 L Monocytes # 0.5 Eosinophils # 0.0 Basophils # 0.0 Nucleated Red Blood Cells # 0.0 Sodium Level 136 Potassium Level 3.2 L Chloride Level 93 L Carbon Dioxide Level 28 Anion Gap 18 H Blood Urea Nitrogen 39 #H Creatinine 1.86 H Glucose Level 217 Calcium Level 8.4 Test 03/26/17 11:16 Bedside Glucose 257 H Medications Medications Current Medications Ondansetron HCl (Zofran Inj) 4 mg Q6H PRN IV NAUSEA AND/OR VOMITING; Start 03/21 at 10:00 Acetaminophen (Tylenol Tab) 650 mg Q6H PRN PO PAIN LEVEL 1-3 OR FEVER Last administered on 03/26/17 04:41; Admin Dose 650 MG; Start 03/21/17 at 10:00 Acetaminophen/ Hydrocodone Bitart ([place] (5/325)) 1 tab Q6H PRN PO MODERATE PAIN LEVEL 4-6 Last administered on 03/22/17 23:35; Admin Dose 1 TAB; Start 03/21 at 10:00 Bisacodyl (Dulcolax) 5 mg DAILY PRN PO CONSTIPATION; Start 03/21/17 at 10:00 Pantoprazole (Protonix Tab) 40 mg DAILY@06 PO Last administered on 03/26/17 06 :04; Admin Dose 40 MG; Start 03/22/17 at 06:00 Aspirin (Aspirin) 81 mg DAILY PO Last administered on 03/26/17 08:42; Admin Dose 81 MG; Start 03/22/17 at 09:00 Cholecalciferol (Vitamin D) 1,000 unit DAILY PO Last administered on 03/26/17 08:42; Admin Dose 1,000 UNIT; Start 03/22/17 at 09:00 Docusate Sodium (Colace) 100 mg BID PO Last administered on 03/26/17 08:42; Admin Dose 100 MG; Start 03/21/17 at 21:00 Folic Acid (Folic Acid) 1 mg DAILY PO Last administered on 03/26/17 08:42; Admin Dose 1 MG; Start 03/22/17 at 09:00 Loratadine (Claritin) 10 mg DAILY PRN PO PRN; Start 03/21/17 at 10:00 Multivit/Ca Carb/ B Cmplx/FA/Prenat (Diandra-Svetlana) 1 tab DAILY PO Last administered on 03/26/17 08:42; Admin Dose 1 TAB; Start 03/22/17 at 09:00 Acetaminophen (Tylenol Tab) 500 mg Q6H PRN PO PAIN AND OR ELEVATED TEMP Last administered on 03/24/17 21:28; Admin Dose 500 MG; Start 03/22/17 at 13:30 Methylprednisolone (Medrol) 4 mg HS PO Last administered on 03/25/17 20:54; Admin Dose 4 MG; Start 03/24/17 at 21:00; Stop 03/26/17 at 21:01 Diagnostic Test (Pha) (Accu-Chek) 1 ea 02 XX Last administered on 03/25/17 02: 55; Admin Dose 1 EA; Start 03/24/17 at 02:00 Atorvastatin Calcium (Lipitor) 20 mg HS PO Last administered on 03/25/17 20:54 ; Admin Dose 20 MG; Start 03/23/17 at 21:00 Miscellaneous Information 1 ea NOTE XX ; Start 03/23/17 at 16:00 Glucose (Glutose) 15 gm Q15M PRN PO DECREASED GLUCOSE; Start 03/23/17 at 16:00 Glucose (Glutose) 22.5 gm Q15M PRN PO DECREASED GLUCOSE; Start 03/23/17 at 16:00 Dextrose (D50w Syringe) 25 ml Q15M PRN IV DECREASED GLUCOSE; Start 03/23/17 at 16:00 Dextrose (D50w Syringe) 50 ml Q15M PRN IV DECREASED GLUCOSE; Start 03/23/17 at 16:00 Glucagon (Glucagen) 1 mg Q15M PRN IM DECREASED GLUCOSE; Start 03/23/17 at 16:00 Glucose 15 gm 15 gm Q15M PRN BUCCAL DECREASED GLUCOSE; Start 03/23/17 at 16:00 Dextrose/Sodium Chloride (D5-1/2ns) 1,000 ml @ 30 mls/hr Q24H IV Last administered on 03/26/17 00:35; Admin Dose 30 MLS/HR; Start 03/23/17 at 22:00 Morphine Sulfate (morphine) 2 mg Q8H PRN IV PAIN Last administered on 18:35; Admin Dose 2 MG; Start 03/24/17 at 07:00 HERMINIO BERNSTEIN Mar 26, 2017 12:03
[2017-03-26] MEDS: LINAGLIPTIN 5 MG TABLET PO SCH (12:27)
[2017-03-26] MEDS ORDERED: ERGOCALCIFEROL 50,000 UNIT CAP PO SCH (17:00)
[2017-03-26] MEDS: MIDODRINE 5 MG TAB GTB SCH (17:19)
[2017-03-26] MEDS: HYDROCODONE/APAP (5/325) TAB PO PRN (17:19)
[2017-03-26 17:31] VITALS: BP 98/52; PULSE 104; RESP 16; RESP 18
[2017-03-26 19:14] VITALS: BP 110/53; RESP 18
[2017-03-26] MEDS: ATORVASTATIN 20 MG TAB PO SCH (20:55)
[2017-03-27] VITALS (7 sets, daily range): BP systolic 100–120; BP diastolic 53–59; PULSE 95–102; RESP 19–29
[2017-03-27] MEDS: ACCU-CHEK XX SCH ×4 (02:00→20:37)
[2017-03-27] MEDS: PANTOPRAZOLE (EC) 40 MG TAB PO SCH (05:20)
[2017-03-27] MEDS: DEXTROSE 5%-0.45% NACL 1,000 ML IV SCH ×2 (05:20→22:00)
[2017-03-27] MEDS: LEVOTHYROXINE 50 MCG TAB PO SCH (07:04)
[2017-03-27] MEDS: METHYLPREDNISOLONE 4 MG TAB PO SCH (08:00)
[2017-03-27] MEDS: INSULIN ASPART [NOVOLOG] 3 ML PEN SC SCH ×4 (08:15→20:33)
[2017-03-27] MEDS: CALCIUM ACETATE 667 MG CAP PO SCH ×3 (08:15→17:55)
[2017-03-27] MEDS: MIDODRINE 5 MG TAB GTB SCH ×2 (08:48→18:32)
[2017-03-27] MEDS: ASPIRIN 81 MG TAB PO SCH (08:48)
[2017-03-27] MEDS: MULTIVIT/CA CARB/B CMPLX/FA TAB PO SCH (08:49)
[2017-03-27] MEDS: FOLIC ACID 1 MG TAB PO SCH (08:49)
[2017-03-27] MEDS: DOCUSATE SODIUM 100 MG CAP PO SCH ×2 (08:49→20:23)
[2017-03-27] MEDS: LINAGLIPTIN 5 MG TABLET PO SCH (08:49)
[2017-03-27] MEDS: CHOLECALCIFEROL 1,000 UNIT TAB PO SCH (08:49)
[2017-03-27 09:19] LABS: ABNORMAL IP MESSAGE 1; BASOPHILS % 0.1 % (0.0-2.0); EOSINOPHILS % 0.1 % (0.0-7.0); HEMATOCRIT 27.9 % (37.0-47.0); HEMOGLOBIN 9.1 g/dl (12.0-16.0); LYMPHOCYTES # 0.3 10^3/ul (0.8-2.9); LYMPHOCYTES % 2.2 % (15.0-51.0); MEAN CORPUSCULAR HEMOGLOBIN 31.5 pg (29.0-33.0); MEAN CORPUSCULAR HGB CONC 32.6 g/dl (32.0-37.0); MEAN CORPUSCULAR VOLUME 96.5 fl (82.0-101.0); MEAN PLATELET VOLUME 9.7 fl (7.4-10.4); MONOCYTE # 0.8 10^3/ul (0.3-0.9); MONOCYTES % 5.6 % (0.0-11.0); NEUTROPHIL # 12.8 10^3/ul (1.6-7.5); NEUTROPHILS % 91.4 % (39.0-77.0); PLATELET COUNT 177 10^3/UL (140-415); RED BLOOD COUNT 2.89 10^6/ul (4.20-5.40); RED CELL DISTRIBUTION WIDTH 16.9 % (11.5-14.5)
[2017-03-27 09:31] LABS: POSITIVE DIFF @See below
[2017-03-27 09:39] LABS: CALCIUM 8.4 mg/dl (8.4-10.2); CREATININE 2.7 mg/dl (0.44-1.00); POTASSIUM 4.1 mmol/L (3.5-5.1)
[2017-03-27] MEDS ORDERED: ACETAMINOPHEN 650 MG SUPP PR PRN (10:00)
[2017-03-27] MEDS ORDERED: CEFAZOLIN 1 GM/50 ML (PMX) 50 ML IVPB SCH (10:00)
--- NOTE | 2017-03-27 16:15 | EN ---
Date/Time of Note Date/Time of Note DATE: 03/27/17 TIME: 16:11 Event Note Medicine Medicine Event Note Rapid response note RR called at 405pm, I was already on the floor and thus presented to the bedside immediately. RR called for code sepsis. Pt with WBCs 14, temp 102F. I came to eval patient, she was laying on her back ,moaning vitals: SO2>90 on RA, SBP 104, HR low 100s no mrg +palpable thrill to RUE AVF abd soft, ntnd no rashes no le edema multiple scattered ecchymoses Patient meets SIRS criteria, sepsis source unclear 86 yo F with ESRD on HD admitted for back pain. RR called for sepsis PLAN broad spectrum abx with vanc/zosyn transfer to tele check lactic acid, blood cultures x 2, CMP, CBC, ABG, CXR. No urine testing as pt anuric per report dw nursing. informed primary service would be notified Copies To: CC: BRANDON MITCHELL MD, ELLEN MD Mar 27, 2017 16:15
--- NOTE | 2017-03-27 16:19 | PN ---
Date/Time of Note Date/Time of Note DATE: 03/27/17 TIME: 16:16 Assessment/Plan VTE Prophylaxis VTE Prophylaxis Intervention: other Lines/Catheters IV [facility]from [facility]): Peripheral IV Urinary Cath still in place: No Assessment/Plan Chief Complaint/Hosp Course A/P ESRD SEPSIS ANEMIA DM CLOTTED AVG S/P FALL Right subclavian vein angioplasty 12 x 40 mm balloo superior vena cava angioplastyn 12 x 40 mm balloon Superior venacavogram AVF REPAIN PLAN HD ANTIBIOTIC Problems: Subjective 24 Hr Interval Summary Respiratory: no complaints Cardiovascular: no complaints Exam/Review of Systems Vital Signs Vitals Vital Signs Date Time Temp Pulse Resp B/P Pulse Ox O2 Delivery O2 Flow Rate FiO2 03/27/17 14:32 102.7 99 25 112/54 92 03/26/17 17:31 Room Air Intake and Output 03/26/17 03/26/17 03/27/17 15:00 23:00 07:00 Intake Total 240 ml 1310 ml 920 ml Balance 240 ml 1310 ml 920 ml Exam Neck: supple Respiratory: diminished breath sounds Cardiovascular: regular rate and rhythm Gastrointestinal: soft Musculoskeletal: nl extremities to inspection Extremities: edema (tr) Results Result Diagram: 03/27/17 0849 03/27/17 0849 Results 24 hrs Laboratory Tests Test 03/26/17 17:08 03/26/17 20:56 03/27/17 02:27 03/27/17 07:59 Bedside Glucose 207 200 206 210 Test 03/27/17 08:49 03/27/17 10:23 03/27/17 11:55 03/27/17 14:10 White Blood Count 14.0 #H Red Blood Count 2.89 #L Hemoglobin 9.1 L Hematocrit 27.9 L Mean Corpuscular Volume 96.5 Mean Corpuscular Hemoglobin 31.5 Mean Corpuscular Hemoglobin Concent 32.6 Red Cell Distribution Width 16.9 #H Platelet Count 177 Mean Platelet Volume 9.7 Neutrophils % 91.4 H Lymphocytes % 2.2 L Monocytes % 5.6 Eosinophils % 0.1 Basophils % 0.1 Nucleated Red Blood Cells % 0.0 Neutrophils # 12.8 H Lymphocytes # 0.3 L Monocytes # 0.8 Eosinophils # 0.0 Basophils # 0.0 Nucleated Red Blood Cells # 0.0 Sodium Level 128 L Potassium Level 4.1 Chloride Level 92 L Carbon Dioxide Level 24 Anion Gap 16 Blood Urea Nitrogen 61 H Creatinine 2.70 H Glucose Level 194 Calcium Level 8.4 Bedside Glucose 201 206 197 Test 03/27/17 16:01 Bedside Glucose 187 Medications Medications Current Medications Ondansetron HCl (Zofran Inj) 4 mg Q6H PRN IV NAUSEA AND/OR VOMITING; Start 03/21 at 10:00 Acetaminophen (Tylenol Tab) 650 mg Q6H PRN PO PAIN LEVEL 1-3 OR FEVER Last administered on 03/26/17 16:03; Admin Dose 650 MG; Start 03/21/17 at 10:00 Acetaminophen/ Hydrocodone Bitart ([place] (5/325)) 1 tab Q6H PRN PO MODERATE PAIN LEVEL 4-6 Last administered on 03/26/17 17:19; Admin Dose 1 TAB; Start 03/21/17 at 10:00 Bisacodyl (Dulcolax) 5 mg DAILY PRN PO CONSTIPATION; Start 03/21/17 at 10:00 Pantoprazole (Protonix Tab) 40 mg DAILY@06 PO Last administered on 03/27/17 05 :20; Admin Dose 40 MG; Start 03/22/17 at 06:00 Aspirin (Aspirin) 81 mg DAILY PO Last administered on 03/26/17 08:42; Admin Dose 81 MG; Start 03/22/17 at 09:00 Cholecalciferol (Vitamin D) 1,000 unit DAILY PO Last administered on 03/26/17 08:42; Admin Dose 1,000 UNIT; Start 03/22/17 at 09:00 Docusate Sodium (Colace) 100 mg BID PO Last administered on 03/26/17 20:55; Admin Dose 100 MG; Start 03/21/17 at 21:00 Folic Acid (Folic Acid) 1 mg DAILY PO Last administered on 03/26/17 08:42; Admin Dose 1 MG; Start 03/22/17 at 09:00 Loratadine (Claritin) 10 mg DAILY PRN PO PRN; Start 03/21/17 at 10:00 Multivit/Ca Carb/ B Cmplx/FA/Prenat (Diandra-Svetlana) 1 tab DAILY PO Last administered on 03/26/17 08:42; Admin Dose 1 TAB; Start 03/22/17 at 09:00 Acetaminophen (Tylenol Tab) 500 mg Q6H PRN PO PAIN AND OR ELEVATED TEMP Last administered on 03/24/17 21:28; Admin Dose 500 MG; Start 03/22/17 at 13:30 Diagnostic Test (Pha) (Accu-Chek) 1 ea 02 XX Last administered on 03/25/17 02: 55; Admin Dose 1 EA; Start 03/24/17 at 02:00 Atorvastatin Calcium (Lipitor) 20 mg HS PO Last administered on 03/26/17 20:55 ; Admin Dose 20 MG; Start 03/23/17 at 21:00 Miscellaneous Information 1 ea NOTE XX ; Start 03/23/17 at 16:00 Glucose (Glutose) 15 gm Q15M PRN PO DECREASED GLUCOSE; Start 03/23/17 at 16:00 Glucose (Glutose) 22.5 gm Q15M PRN PO DECREASED GLUCOSE; Start 03/23/17 at 16:00 Dextrose (D50w Syringe) 25 ml Q15M PRN IV DECREASED GLUCOSE; Start 03/23/17 at 16:00 Dextrose (D50w Syringe) 50 ml Q15M PRN IV DECREASED GLUCOSE; Start 03/23/17 at 16:00 Glucagon (Glucagen) 1 mg Q15M PRN IM DECREASED GLUCOSE; Start 03/23/17 at 16:00 Glucose 15 gm 15 gm Q15M PRN BUCCAL DECREASED GLUCOSE; Start 03/23/17 at 16:00 Dextrose/Sodium Chloride (D5-1/2ns) 1,000 ml @ 30 mls/hr Q24H IV Last administered on 03/27/17 05:20; Admin Dose 30 MLS/HR; Start 03/23/17 at 22:00 Morphine Sulfate (morphine) 2 mg Q8H PRN IV PAIN Last administered on 18:35; Admin Dose 2 MG; Start 03/24/17 at 07:00 Midodrine (Proamatine) 5 mg BID@09,17 GTB Last administered on 03/26/17 17:19 ; Admin Dose 5 MG; Start 03/26/17 at 17:00 Linagliptin (Tradjenta) 5 mg DAILY PO Last administered on 03/26/17 12:27; Admin Dose 5 MG; Start 03/26/17 at 12:00 Ergocalciferol (Drisdol) 50,000 unit Sa@09 PO Last administered on 03/26/17t 23 :18; Admin Dose 50,000 UNIT; Start 03/26/17 at 17:00 Acetaminophen 650 mg 650 mg Q4H PRN SD PAIN OR TEMP ABOVE 38C; Start 03/27/17 at 10:00 Vancomycin HCl/ Sodium Chloride (Vancocin/NS) 250 ml @ 83.333 mls/ hr ONCE@18 IVPB ; Start 03/27/17 at 18:00; Stop 03/27/17 at 23:00 BRANDON MITCHELL MD Mar 27, 2017 16:18
[2017-03-27] MEDS ORDERED: VANCOMYCIN IV PER PHARMACY XX SCH (16:30)
[2017-03-27] MEDS ORDERED: TOBRAMYCIN 80 MG INJ IVPB ONE (16:30)
[2017-03-27] MEDS ORDERED: VANCOMYCIN 1 GM (PMX) 250 ML IVPB SCH (16:30)
[2017-03-27 16:31] LABS: ABNORMAL IP MESSAGE 1; BASOPHILS % 0.1 % (0.0-2.0); LYMPHOCYTES # 0.4 10^3/ul (0.8-2.9); LYMPHOCYTES % 2.4 % (15.0-51.0); MEAN CORPUSCULAR HEMOGLOBIN 31.8 pg (29.0-33.0); MEAN CORPUSCULAR HGB CONC 33.3 g/dl (32.0-37.0); MEAN CORPUSCULAR VOLUME 95.4 fl (82.0-101.0); MEAN PLATELET VOLUME 9.6 fl (7.4-10.4); MONOCYTE # 1.3 10^3/ul (0.3-0.9); MONOCYTES % 8.4 % (0.0-11.0); NEUTROPHIL # 14.2 10^3/ul (1.6-7.5); NEUTROPHILS % 88.5 % (39.0-77.0); PLATELET COUNT 157 10^3/UL (140-415); POSITIVE DIFF @See below; RED BLOOD COUNT 2.83 10^6/ul (4.20-5.40); RED CELL DISTRIBUTION WIDTH 17.2 % (11.5-14.5)
[2017-03-27 16:54] LABS: ALBUMIN/GLOBULIN RATIO 1.03; BILIRUBIN,INDIRECT 0.4 mg/dl (0-1.1); BILIRUBIN,TOTAL 0.4 mg/dl (0.2-1.3); CALCIUM 8.5 mg/dl (8.4-10.2); CREATININE 2.83 mg/dl (0.44-1.00); POTASSIUM 3.8 mmol/L (3.5-5.1); TOTAL PROTEIN 5.9 g/dl (6.1-8.1)
[2017-03-27] MEDS ORDERED: TOBRAMYCIN IV PER PHARMACY XX SCH (17:00)
[2017-03-27] MEDS ORDERED: TOBRAMYCIN IVPB SCH ×2 (17:00)
[2017-03-27] MEDS ORDERED: SOD CHLORIDE 0.9% IVPB SCH ×2 (17:00)
[2017-03-27] MEDS ORDERED: LEVOFLOXACIN 500MG/D5W (PMX) 100 ML IVPB SCH (17:00)
--- NOTE | 2017-03-27 17:04 | PN ---
Date/Time of Note Date/Time of Note DATE: 03/27/17 TIME: 17:04 Assessment/Plan Lines/Catheters IV Catheter Type (from Nrsg): Peripheral IV Marie in Place (from Nrsg): No Assessment/Plan Chief Complaint/Hosp Course fistulogram and possible angioplasty RUE AVF SP for fistulogram No evidence of bleeding will continue dialysis Problems: Subjective 24 Hr Interval Summary Constitutional: improved Pain Control: mild Exam/Review of Systems Vital Signs Vitals Vital Signs Date Time Temp Pulse Resp B/P Pulse Ox O2 Delivery O2 Flow Rate FiO2 03/27/17 16:23 99 03/27/17 14:32 102.7 25 112/54 92 03/26/17 17:31 Room Air Intake and Output 03/26/17 03/26/17 03/27/17 15:00 23:00 07:00 Intake Total 240 ml 1310 ml 920 ml Balance 240 ml 1310 ml 920 ml Exam ENMT: mucosa pink and moist, nl external ears & nose, nl lips & teeth, nl nasal mucosa & septum Neck: non-tender, supple Respiratory: clear to auscultation, normal air movement Cardiovascular: nl pulses, regular rate and rhythm Gastrointestinal: nl liver, spleen, non-tender, soft Results Result Diagram: 03/27/17 1617 03/27/17 1620 MARGO MARIN MD Mar 27, 2017 17:04
--- NOTE | 2017-03-27 17:21 | RADRPT ---
PROCEDURE: Portable chest x-ray. CLINICAL INDICATION: 86-year female sepsis TECHNIQUE: Portable AP view of the chest. COMPARISON: September 24, 2016 FINDINGS: Sternal wires from previous surgery. Atherosclerosis and tortuosity thoracic aorta. Borderline heart size. There is hazy increased opacity in the left lung in the upper, mid and lower lung zones that is new from prior exam. Right lung is clear. Mild bronchial wall thickening. Negative for pleural effusion or pneumothorax. Suspected old healed left rib fractures. Old healed fracture deformity proximal left humerus. Osteo penia. No acute bony abnormality. Surgical clips right axilla. The right breast is not visualized. IMPRESSION: Hazy increased opacity in the left lung is concerning for pneumonia in this clinical setting, possib ly interstitial pneumonia. Bronchial wall thickening in keeping with inflammation of the lower airways. Suspected right mastectomy and right axillary lymph node dissection. Correlate with surgical histor y. RPTAT: HCTS Physician Lillian Date Time Electronically viewed and signed by Physician Lillian on 03/27/2017 17:20 /
[2017-03-27 17:31] LABS: AADO2 Arterial 42.5 mmHg (7.0-24.0); Allen Test ACCEPTAB; Arterial Base Excess -0.1 mmol/L (-3.0-3); Arterial COHb 0.7 % (0.0-3.0); Arterial Fraction of Oxyhgb 94.1 % (93.0-99.0); Arterial HCO3 21.9 mmol/L (22.0-26.0); Arterial MetHb 0.2 % (0.0-1.5); Arterial Total Hemglobin 9.2 g/dl (12.0-18.0); MODE ROOM AIR
[2017-03-27] MEDS ORDERED: VANCOMYCIN 1.25 GM in SOD CHLORIDE 0.9% 250 ML IVPB SCH (18:00)
[2017-03-27] MEDS: ATORVASTATIN 20 MG TAB PO SCH (20:23)
[2017-03-28] VITALS (20 sets, daily range): BP systolic 84–113; BP diastolic 45–67; PULSE 81–127; RESP 17–22
[2017-03-28] MEDS: ACCU-CHEK XX SCH ×4 (02:00→19:55)
[2017-03-28] MEDS: PANTOPRAZOLE (EC) 40 MG TAB PO SCH (06:00)
[2017-03-28] MEDS: LEVOTHYROXINE 50 MCG TAB PO SCH (07:00)
--- NOTE | 2017-03-28 08:13 | PN ---
Date/Time of Note Date/Time of Note DATE: 03/28/17 TIME: 08:12 Assessment/Plan Lines/Catheters IV Catheter Type (from Nrsg): Peripheral IV Marie in Place (from Nrsg): No Assessment/Plan Chief Complaint/Hosp Course fistulogram and possible angioplasty RUE AVF SP for fistulogram No evidence of bleeding will continue dialysis Problems: Subjective 24 Hr Interval Summary Constitutional: improved Pain Control: mild Exam/Review of Systems Vital Signs Vitals Vital Signs Date Time Temp Pulse Resp B/P Pulse Ox O2 Delivery O2 Flow Rate FiO2 03/28/17 07:40 101.7 105 22 113/56 95 03/27/17 17:43 Nasal Cannula Intake and Output 03/27/17 03/27/17 03/28/17 15:00 23:00 07:00 Intake Total 60 ml 290 ml 450 ml Balance 60 ml 290 ml 450 ml Exam Neck: non-tender, supple Respiratory: clear to auscultation, normal air movement Cardiovascular: nl pulses, regular rate and rhythm Gastrointestinal: nl liver, spleen, non-tender, soft Results Result Diagram: 03/27/17 1617 03/27/17 1620 MALEMARGO BARRY MD Mar 28, 2017 08:13
[2017-03-28] MEDS: LINAGLIPTIN 5 MG TABLET PO SCH (08:53)
[2017-03-28] MEDS: CHOLECALCIFEROL 1,000 UNIT TAB PO SCH (08:53)
[2017-03-28] MEDS: FOLIC ACID 1 MG TAB PO SCH (08:53)
[2017-03-28] MEDS: DOCUSATE SODIUM 100 MG CAP PO SCH ×3 (08:53→21:11)
[2017-03-28] MEDS: ASPIRIN 81 MG TAB PO SCH (08:53)
[2017-03-28] MEDS: MULTIVIT/CA CARB/B CMPLX/FA TAB PO SCH (08:53)
[2017-03-28] MEDS: CALCIUM ACETATE 667 MG CAP PO SCH ×3 (08:54→17:54)
[2017-03-28] MEDS: INSULIN ASPART [NOVOLOG] 3 ML PEN SC SCH ×4 (08:56→20:55)
[2017-03-28] MEDS: MIDODRINE 5 MG TAB GTB SCH ×2 (09:02→17:53)
[2017-03-28 11:52] LABS: ABNORMAL IP MESSAGE 1; BASOPHILS % 0.1 % (0.0-2.0); HEMATOCRIT 25.3 % (37.0-47.0); HEMOGLOBIN 8.6 g/dl (12.0-16.0); LYMPHOCYTES # 0.4 10^3/ul (0.8-2.9); LYMPHOCYTES % 2.1 % (15.0-51.0); MEAN CORPUSCULAR HEMOGLOBIN 32.8 pg (29.0-33.0); MEAN CORPUSCULAR VOLUME 96.6 fl (82.0-101.0); MEAN PLATELET VOLUME 10.6 fl (7.4-10.4); MONOCYTE # 1.9 10^3/ul (0.3-0.9); MONOCYTES % 10.4 % (0.0-11.0); NEUTROPHIL # 15.6 10^3/ul (1.6-7.5); NEUTROPHILS % 85.2 % (39.0-77.0); PLATELET COUNT 127 10^3/UL (140-415); RED BLOOD COUNT 2.62 10^6/ul (4.20-5.40); RED CELL DISTRIBUTION WIDTH 16.5 % (11.5-14.5); WHITE BLOOD COUNT 18.3 10^3/ul (4.8-10.8)
[2017-03-28 11:54] LABS: POSITIVE DIFF @See below
[2017-03-28 12:14] LABS: ALBUMIN 2.6 g/dl (3.3-4.9); ALBUMIN/GLOBULIN RATIO 0.92; BILIRUBIN,INDIRECT 0.1 mg/dl (0-1.1); BILIRUBIN,TOTAL 0.1 mg/dl (0.2-1.3); CALCIUM 8.4 mg/dl (8.4-10.2); CREATININE 3.2 mg/dl (0.44-1.00); POTASSIUM 4.2 mmol/L (3.5-5.1); TOTAL PROTEIN 5.4 g/dl (6.1-8.1)
[2017-03-28] MEDS: CEFEPIME 1GM/50 ML (PMX) 50 ML IVPB SCH (12:20)
[2017-03-28] MEDS ORDERED: ALBUMIN HUMAN 25% 100 ML IV ONE (12:30)
--- NOTE | 2017-03-28 16:46 | CONS ---
Date/Time of Note Date/Time of Note DATE: 03/28/17 TIME: 16:45 Consultation Date/Type/Reason Admit Date/Time Mar 21, 2017 at 08:26 Date of Consultation: Mar 28, 2017 Type of Consultation: ID Reason for Consultation Antibiotic management Constitutional: no complaints ENT: no complaints Respiratory: no complaints Cardiovascular: no complaints Gastrointestinal: no complaints Genitourinary: no complaints Musculoskeletal: no complaints Neurologic: no complaints Past Medical History Medical History: coronary artery disease, diabetes, high cholesterol Past Surgical History Past Surgical Hx: other Social History Alcohol Use: sober Smoking Status: Never smoker Drug Use: none Exam/Review of Systems Vital Signs Vitals Vital Signs Date Time Temp Pulse Resp B/P Pulse Ox O2 Delivery O2 Flow Rate FiO2 03/28/17 15:39 98.6 82 20 86/51 95 03/28/17 08:00 Nasal Cannula 2.0 Intake and Output 03/27/17 03/27/17 03/28/17 15:00 23:00 07:00 Intake Total 60 ml 290 ml 450 ml Balance 60 ml 290 ml 450 ml Results Result Diagram: 03/28/17 1115 03/28/17 1115 Results 24 hrs Laboratory Tests Test 03/27/17 16:55 03/27/17 17:39 03/27/17 20:29 03/28/17 04:03 Bedside Glucose 196 206 205 179 Test 03/28/17 06:04 03/28/17 08:17 03/28/17 09:57 03/28/17 11:15 Lab Scanned Report BLOOD TRANSFUSION Bedside Glucose 196 213 White Blood Count 18.3 H Red Blood Count 2.62 L Hemoglobin 8.6 L Hematocrit 25.3 L Mean Corpuscular Volume 96.6 Mean Corpuscular Hemoglobin 32.8 Mean Corpuscular Hemoglobin Concent 34.0 Red Cell Distribution Width 16.5 H Platelet Count 127 L Mean Platelet Volume 10.6 H Neutrophils % 85.2 H Lymphocytes % 2.1 L Monocytes % 10.4 Eosinophils % 0.0 Basophils % 0.1 Nucleated Red Blood Cells % 0.0 Neutrophils # 15.6 H Lymphocytes # 0.4 L Monocytes # 1.9 H Eosinophils # 0.0 Basophils # 0.0 Nucleated Red Blood Cells # 0.0 Sodium Level 132 L Potassium Level 4.2 Chloride Level 93 L Carbon Dioxide Level 24 Anion Gap 19 H Blood Urea Nitrogen 85 H Creatinine 3.20 H Glucose Level 196 Calcium Level 8.4 Total Bilirubin 0.1 L Direct Bilirubin 0.00 Indirect Bilirubin 0.1 Aspartate Amino Transf (AST/SGOT) 37 Alanine Aminotransferase (ALT/SGPT) 30 Alkaline Phosphatase 85 Total Protein 5.4 L Albumin 2.6 L Globulin 2.80 Albumin/Globulin Ratio 0.92 Test 03/28/17 11:55 03/28/17 14:22 Bedside Glucose 217 192 Medications Medications Current Medications Ondansetron HCl (Zofran Inj) 4 mg Q6H PRN IV NAUSEA AND/OR VOMITING; Start 03/21 at 10:00 Acetaminophen (Tylenol Tab) 650 mg Q6H PRN PO PAIN LEVEL 1-3 OR FEVER Last administered on 03/26/17 16:03; Admin Dose 650 MG; Start 03/21/17 at 10:00 Acetaminophen/ Hydrocodone Bitart (Stella (5/325)) 1 tab Q6H PRN PO MODERATE PAIN LEVEL 4-6 Last administered on 03/26/17 17:19; Admin Dose 1 TAB; Start 03/21/17 at 10:00 Bisacodyl (Dulcolax) 5 mg DAILY PRN PO CONSTIPATION; Start 03/21/17 at 10:00 Pantoprazole (Protonix Tab) 40 mg DAILY@06 PO Last administered on 03/27/17 05 :20; Admin Dose 40 MG; Start 03/22/17 at 06:00 Aspirin (Aspirin) 81 mg DAILY PO Last administered on 03/28/17 08:53; Admin Dose 81 MG; Start 03/22/17 at 09:00 Cholecalciferol (Vitamin D) 1,000 unit DAILY PO Last administered on 03/28/17 08:53; Admin Dose 1,000 UNIT; Start 03/22/17 at 09:00 Docusate Sodium (Colace) 100 mg BID PO Last administered on 03/28/17 08:53; Admin Dose 100 MG; Start 03/21/17 at 21:00 Folic Acid (Folic Acid) 1 mg DAILY PO Last administered on 03/28/17 08:53; Admin Dose 1 MG; Start 03/22/17 at 09:00 Loratadine (Claritin) 10 mg DAILY PRN PO PRN; Start 03/21/17 at 10:00 Multivit/Ca Carb/ B Cmplx/FA/Prenat (Diandra-Svetlana) 1 tab DAILY PO Last administered on 03/28/17 08:53; Admin Dose 1 TAB; Start 03/22/17 at 09:00 Acetaminophen (Tylenol Tab) 500 mg Q6H PRN PO PAIN AND OR ELEVATED TEMP Last administered on 03/24/17 21:28; Admin Dose 500 MG; Start 03/22/17 at 13:30 Diagnostic Test (Pha) (Accu-Chek) 1 ea 02 XX Last administered on 03/25/17 02: 55; Admin Dose 1 EA; Start 03/24/17 at 02:00 Atorvastatin Calcium (Lipitor) 20 mg HS PO Last administered on 03/26/17 20:55 ; Admin Dose 20 MG; Start 03/23/17 at 21:00 Miscellaneous Information 1 ea NOTE XX ; Start 03/23/17 at 16:00 Glucose (Glutose) 15 gm Q15M PRN PO DECREASED GLUCOSE; Start 03/23/17 at 16:00 Glucose (Glutose) 22.5 gm Q15M PRN PO DECREASED GLUCOSE; Start 03/23/17 at 16:00 Dextrose (D50w Syringe) 25 ml Q15M PRN IV DECREASED GLUCOSE; Start 03/23/17 at 16:00 Dextrose (D50w Syringe) 50 ml Q15M PRN IV DECREASED GLUCOSE; Start 03/23/17 at 16:00 Glucagon (Glucagen) 1 mg Q15M PRN IM DECREASED GLUCOSE; Start 03/23/17 at 16:00 Glucose 15 gm 15 gm Q15M PRN BUCCAL DECREASED GLUCOSE; Start 03/23/17 at 16:00 Dextrose/Sodium Chloride (D5-1/2ns) 1,000 ml @ 50 mls/hr Q20H IV Last administered on 03/27/17 22:00; Admin Dose 50 MLS/HR; Start 03/23/17 at 22:00; Status Future Hold Morphine Sulfate (morphine) 2 mg Q8H PRN IV PAIN Last administered on 18:35; Admin Dose 2 MG; Start 03/24/17 at 07:00 Midodrine (Proamatine) 5 mg BID@ GTB Last administered on 03/28/17 09:02 ; Admin Dose 5 MG; Start 03/26/17 at 17:00 Linagliptin (Tradjenta) 5 mg DAILY PO Last administered on 03/28/17 08:53; Admin Dose 5 MG; Start 03/26/17 at 12:00 Ergocalciferol (Drisdol) 50,000 unit Sa@09 PO Last administered on 03/26/17 23 :18; Admin Dose 50,000 UNIT; Start 03/26/17 at 17:00 Acetaminophen (Tylenol Supp) 650 mg Q4H PRN [place] PAIN OR TEMP ABOVE 38C; Start at 10:00 Tobramycin (Tobramycin Iv Per Pharmacy) PER PHARMACY DOSING NOTE XX ; Start at 17:00 Miscellaneous Information RANDOM VANCOMYCIN LEVEL 8... ONCE ONCE XX ; Start at 05:00; Stop 03/29/17 at 05:01 Cefepime HCl (Maxipime 1gm/50 ml (Pmx)) 50 ml @ 100 mls/hr DAILY IVPB Last administered on 03/28/17 12:20; Admin Dose 100 MLS/HR; Start 03/28/17 at 12:00 HANNAH THORPE MD Mar 28, 2017 16:46
--- NOTE | 2017-03-28 19:30 | RADRPT ---
Vent Rate: 99 bpm RR Interval: 0 msec CA Interval: 136 msec QRS Duration: 108 msec QT Interval: 316 msec QTC Interval: 405 msec P-R-T [place]: 16 - 63 - 173 degrees Normal sinus rhythm ST/T wave abnormality, consider anterolateral ischemia Abnormal ECG Electronically Signed By: Phill Willson [id number]
--- NOTE | 2017-03-28 19:38 | PN ---
Date/Time of Note Date/Time of Note DATE: 03/28/17 TIME: 19:37 Assessment/Plan VTE Prophylaxis VTE Prophylaxis Intervention: other Lines/Catheters [facility] Saline Lock Urinary Cath still in place: No Assessment/Plan Chief Complaint/Hosp Course A/P ESRD SEPSIS ANEMIA bacteremia DM CLOTTED AVG S/P FALL Right subclavian vein angioplasty 12 x 40 mm balloo superior vena cava angioplastyn 12 x 40 mm balloon Superior venacavogram AVF REPAIN PLAN HD ANTIBIOTIC per id Problems: Subjective 24 Hr Interval Summary Subjective hx not possible: other (on hd) Exam/Review of Systems Vital Signs Vitals Vital Signs Date Time Temp Pulse Resp B/P Pulse Ox O2 Delivery O2 Flow Rate FiO2 03/28/17 17:00 81 18 03/28/17 15:39 98.6 86/51 95 03/28/17 08:00 Nasal Cannula 2.0 Intake and Output 03/27/17 03/27/17 03/28/17 15:00 23:00 07:00 Intake Total 60 ml 290 ml 450 ml Balance 60 ml 290 ml 450 ml Exam Neck: supple Respiratory: clear to auscultation Cardiovascular: regular rate and rhythm Gastrointestinal: soft Extremities: normal pulses Results Result Diagram: 03/28/17 1115 03/28/17 1115 Results 24 hrs Laboratory Tests Test 03/27/17 20:29 03/28/17 04:03 03/28/17 06:04 03/28/17 08:17 Bedside Glucose 205 179 196 Lab Scanned Report BLOOD TRANSFUSION Test 03/28/17 09:57 03/28/17 11:15 03/28/17 11:55 03/28/17 14:22 Bedside Glucose 213 217 192 White Blood Count 18.3 H Red Blood Count 2.62 L Hemoglobin 8.6 L Hematocrit 25.3 L Mean Corpuscular Volume 96.6 Mean Corpuscular Hemoglobin 32.8 Mean Corpuscular Hemoglobin Concent 34.0 Red Cell Distribution Width 16.5 H Platelet Count 127 L Mean Platelet Volume 10.6 H Neutrophils % 85.2 H Lymphocytes % 2.1 L Monocytes % 10.4 Eosinophils % 0.0 Basophils % 0.1 Nucleated Red Blood Cells % 0.0 Neutrophils # 15.6 H Lymphocytes # 0.4 L Monocytes # 1.9 H Eosinophils # 0.0 Basophils # 0.0 Nucleated Red Blood Cells # 0.0 Sodium Level 132 L Potassium Level 4.2 Chloride Level 93 L Carbon Dioxide Level 24 Anion Gap 19 H Blood Urea Nitrogen 85 H Creatinine 3.20 H Glucose Level 196 Calcium Level 8.4 Total Bilirubin 0.1 L Direct Bilirubin 0.00 Indirect Bilirubin 0.1 Aspartate Amino Transf (AST/SGOT) 37 Alanine Aminotransferase (ALT/SGPT) 30 Alkaline Phosphatase 85 Total Protein 5.4 L Albumin 2.6 L Globulin 2.80 Albumin/Globulin Ratio 0.92 Test 03/28/17 17:52 Bedside Glucose 178 Medications Medications Current Medications Ondansetron HCl (Zofran Inj) 4 mg Q6H PRN IV NAUSEA AND/OR VOMITING; Start 03/21 at 10:00 Acetaminophen (Tylenol Tab) 650 mg Q6H PRN PO PAIN LEVEL 1-3 OR FEVER Last administered on 03/26/17 16:03; Admin Dose 650 MG; Start 03/21/17 at 10:00 Acetaminophen/ Hydrocodone Bitart ([place] (5/325)) 1 tab Q6H PRN PO MODERATE PAIN LEVEL 4-6 Last administered on 03/26/17 17:19; Admin Dose 1 TAB; Start 03/21/17 at 10:00 Bisacodyl (Dulcolax) 5 mg DAILY PRN PO CONSTIPATION; Start 03/21/17 at 10:00 Pantoprazole (Protonix Tab) 40 mg DAILY@06 PO Last administered on 03/27/17 05 :20; Admin Dose 40 MG; Start 03/22/17 at 06:00 Aspirin (Aspirin) 81 mg DAILY PO Last administered on 03/28/17 08:53; Admin Dose 81 MG; Start 03/22/17 at 09:00 Cholecalciferol (Vitamin D) 1,000 unit DAILY PO Last administered on 03/28/17 08:53; Admin Dose 1,000 UNIT; Start 03/22/17 at 09:00 Docusate Sodium (Colace) 100 mg BID PO Last administered on 03/28/17 08:53; Admin Dose 100 MG; Start 03/21/17 at 21:00 Folic Acid (Folic Acid) 1 mg DAILY PO Last administered on 03/28/17 08:53; Admin Dose 1 MG; Start 03/22/17 at 09:00 Loratadine (Claritin) 10 mg DAILY PRN PO PRN; Start 03/21/17 at 10:00 Multivit/Ca Carb/ B Cmplx/FA/Prenat (Diandra-Svetlana) 1 tab DAILY PO Last administered on 03/28/17 08:53; Admin Dose 1 TAB; Start 03/22/17 at 09:00 Acetaminophen (Tylenol Tab) 500 mg Q6H PRN PO PAIN AND OR ELEVATED TEMP Last administered on 03/24/17 21:28; Admin Dose 500 MG; Start 03/22/17 at 13:30 Diagnostic Test (Pha) (Accu-Chek) 1 ea 02 XX Last administered on 03/25/17 02: 55; Admin Dose 1 EA; Start 03/24/17 at 02:00 Atorvastatin Calcium (Lipitor) 20 mg HS PO Last administered on 03/26/17 20:55 ; Admin Dose 20 MG; Start 03/23/17 at 21:00 Miscellaneous Information 1 ea NOTE XX ; Start 03/23/17 at 16:00 Glucose (Glutose) 15 gm Q15M PRN PO DECREASED GLUCOSE; Start 03/23/17 at 16:00 Glucose (Glutose) 22.5 gm Q15M PRN PO DECREASED GLUCOSE; Start 03/23/17 at 16:00 Dextrose (D50w Syringe) 25 ml Q15M PRN IV DECREASED GLUCOSE; Start 03/23/17 at 16:00 Dextrose (D50w Syringe) 50 ml Q15M PRN IV DECREASED GLUCOSE; Start 03/23/17 at 16:00 Glucagon (Glucagen) 1 mg Q15M PRN IM DECREASED GLUCOSE; Start 03/23/17 at 16:00 Glucose 15 gm 15 gm Q15M PRN BUCCAL DECREASED GLUCOSE; Start 03/23/17 at 16:00 Dextrose/Sodium Chloride (D5-1/2ns) 1,000 ml @ 50 mls/hr Q20H IV Last administered on 03/27/17 22:00; Admin Dose 50 MLS/HR; Start 03/23/17 at 22:00; Status Future Hold Morphine Sulfate (morphine) 2 mg Q8H PRN IV PAIN Last administered on 18:35; Admin Dose 2 MG; Start 03/24/17 at 07:00 Midodrine (Proamatine) 5 mg BID@09,17 GTB Last administered on 03/28/17 17:53 ; Admin Dose 5 MG; Start 03/26/17 at 17:00 Linagliptin (Tradjenta) 5 mg DAILY PO Last administered on 03/28/17 08:53; Admin Dose 5 MG; Start 03/26/17 at 12:00 Ergocalciferol (Drisdol) 50,000 unit Sa@09 PO Last administered on 03/26/17 23 :18; Admin Dose 50,000 UNIT; Start 03/26/17 at 17:00 Acetaminophen (Tylenol Supp) 650 mg Q4H PRN [place] PAIN OR TEMP ABOVE 38C; Start at 10:00 Tobramycin (Tobramycin Iv Per Pharmacy) PER PHARMACY DOSING NOTE XX ; Start at 17:00 Miscellaneous Information RANDOM VANCOMYCIN LEVEL 8... ONCE ONCE XX ; Start at 05:00; Stop 03/29/17 at 05:01 Cefepime HCl (Maxipime 1gm/50 ml (Pmx)) 50 ml @ 100 mls/hr DAILY IVPB Last administered on 03/28/17 12:20; Admin Dose 100 MLS/HR; Start 03/28/17 at 12:00 BRANDON MITCHELL MD Mar 28, 2017 19:38
[2017-03-28] MEDS: ATORVASTATIN 20 MG TAB PO SCH ×2 (21:00→21:11)
[2017-03-29] VITALS (16 sets, daily range): BP systolic 85–117; BP diastolic 49–67; PULSE 88–149; RESP 16–26
[2017-03-29] MEDS ORDERED: DIGOXIN 500 MCG INJ IV ONE (02:00)
[2017-03-29] MEDS: ACCU-CHEK XX SCH ×4 (02:00→19:55)
[2017-03-29 02:12] LABS: AADO2 Arterial 546.1 mmHg (7.0-24.0); Allen Test ACCEPTAB; Arterial Base Excess -7.7 mmol/L (-3.0-3); Arterial COHb 0.3 % (0.0-3.0); Arterial Fraction of Oxyhgb 96.7 % (93.0-99.0); Arterial HCO3 17.5 mmol/L (22.0-26.0); Arterial MetHb 0.2 % (0.0-1.5); Arterial Total Hemglobin 9.5 g/dl (12.0-18.0); MODE MASK - NRB
--- NOTE | 2017-03-29 02:23 | RADRPT ---
PROCEDURE: XR Chest. CLINICAL INDICATION: Dyspnea. TECHNIQUE: Single frontal view of the chest. COMPARISON: 09/24/2016 FINDINGS: Cardiomegaly and atherosclerotic calcifications in the thoracic aorta. New pulmonary mass congestio n with bilateral patchy mid lung and lung base air space disease. Costophrenic angle blunting on th e left is again seen, likely secondary to pleural thickening from prior CABG. No signs of pleural fl uid or pneumothorax are seen. The osseous structures and soft tissues are unremarkable. IMPRESSION: Mild failure is new. RPTAT: [facility] Physician Pauline Date Time Electronically viewed and signed by Physician Pauline on 03/29/2017 02:23 RS/
--- NOTE | 2017-03-29 05:12 | CONS ---
DATE OF ADMISSION: 03/22/2017 DATE OF CONSULTATION: 03/28/2017 Infectious Disease Consultation REASON FOR CONSULTATION: Antibiotic management. Ewa Aguilera is an 86-year-old, frail, pale female with numerous problems who is currently admitted with recurrent AV graft bleeding and is being seen for antibiotic management. PROBLEMS: 1. End-stage renal disease, on hemodialysis. 2. Right-sided AV graft. 3. Hypertension. 4. Diabetes mellitus. 5. Atherosclerotic cardiovascular disease. 6. Left breast cancer with mastectomy on the left. 7. Humerus fracture on the left. 8. Compression fracture of vertebral L1. 9. Dyslipidemia. 10. Coronary artery disease. 11. Osteoporosis. DrJill was called to see the patient to rule out central canal stenosis. On admission, white count was 8.6, H and H of 7.9, 24.5, platelet count 169,000. BUN and creatinine 76/3.34 and random glucose was 115. PAST MEDICAL HISTORY: Operations as outlined. The patient is status post history of a mechanical fall with compression fracture of T12 and L3 vertebral bodies with retropulsion in the past, history of L1 compression fracture. I believe that most of the problems have been elucidated. PAST SURGICAL HISTORY: Operations as outlined. FAMILY HISTORY: Noncontributory. SOCIAL HISTORY: She does not smoke, drink, or abuse drugs. ALLERGIES: TO PENICILLIN AND IODINE. MEDICATION: Include meds for hypothyroidism. REVIEW OF SYSTEMS: As per HPI. PHYSICAL EXAMINATION: GENERAL: Patient is a chronically ill-appearing female who is lethargic but arousable. Currently on dialysis through a right AV fistula. SKIN: Without generalized rash. HEENT: Within normal limits. NECK: Supple. Lymph nodes: None palpable. CHEST: Decreased breath sounds at bases. HEART: Without murmur or gallop. ABDOMEN: Soft, nontender, without organomegaly or splenomegaly or masses. EXTREMITIES: Without cyanosis, clubbing, or edema. RECTAL: Exam is deferred. GENITAL: Exam is deferred. NEUROLOGIC: No focal neurological abnormalities. HOSPITAL COURSE: The patient was seen by a number of different consults including Dr. Federico Lau. She has spinal stenosis with foraminal stenosis at multiple levels, compression fracture at T12, L1 and L3. He recommended trial of conservative therapy with Medrol Dosepak, nonsteroidal anti-inflammatory medications. Epidural injection should be tried; however, epidural injection is not at [facility], will have to be done as an outpatient, probably at . On the the patient dysfunctional right upper extremity AV fistula. She had a right subclavian vein angioplasty balloon superior vena cava angioplasty, superior vena cavogram and a right arm fistulogram by and and the fistula was opened. Patient on 03/27 had gram-positive cocci in clusters, /. Patient was given vancomycin 1 dose and cefepime, also Levaquin and tobramycin. Chest x-ray shows sternal wires from previous surgery, hazy increased opacity in left lung concerning for pneumonia, possibly interstitial pneumonia, bronchial wall thickening in keeping with inflammation of the lower airway suspected, right mastectomy and right axillary lymph node dissection, correlate with surgical history. So, she has a right mastectomy. I believe that my impression is that we are dealing with a contamination in terms of the blood culture but since this is not entirely clear we should most likely get repeat blood cultures done since the blood culture from the was positive. Will continue her on vancomycin and cefepime. She is on tobramycin, which is reasonable, and vancomycin. She probably can stop the cefepime and will do that in the next 24 hours. I will dictate my findings to the hospitalist. Dictated By: Vipul Rocha MD JD/vaishali/ashwini /Document#: [id number]
[2017-03-29] MEDS: PANTOPRAZOLE (EC) 40 MG TAB PO SCH (06:00)
[2017-03-29 06:05] LABS: ABNORMAL IP MESSAGE 1; BASOPHILS % 0.1 % (0.0-2.0); HEMATOCRIT 27.4 % (37.0-47.0); HEMOGLOBIN 8.7 g/dl (12.0-16.0); LYMPHOCYTES # 0.6 10^3/ul (0.8-2.9); LYMPHOCYTES % 2.8 % (15.0-51.0); MEAN CORPUSCULAR HEMOGLOBIN 30.9 pg (29.0-33.0); MEAN CORPUSCULAR HGB CONC 31.8 g/dl (32.0-37.0); MEAN CORPUSCULAR VOLUME 97.2 fl (82.0-101.0); MEAN PLATELET VOLUME 11.4 fl (7.4-10.4); MONOCYTE # 2.5 10^3/ul (0.3-0.9); NEUTROPHILS % 84.4 % (39.0-77.0); PLATELET COUNT 122 10^3/UL (140-415); RED BLOOD COUNT 2.82 10^6/ul (4.20-5.40); RED CELL DISTRIBUTION WIDTH 16.6 % (11.5-14.5); WHITE BLOOD COUNT 22.2 10^3/ul (4.8-10.8)
[2017-03-29] MEDS: LEVOTHYROXINE 50 MCG TAB PO SCH (06:06)
[2017-03-29 06:17] LABS: POSITIVE DIFF @See below
[2017-03-29 06:19] LABS: ALBUMIN 2.9 g/dl (3.3-4.9); ALBUMIN/GLOBULIN RATIO 1.07; BILIRUBIN,INDIRECT 0.3 mg/dl (0-1.1); BILIRUBIN,TOTAL 0.3 mg/dl (0.2-1.3); CALCIUM 9.5 mg/dl (8.4-10.2); CREATININE 2.56 mg/dl (0.44-1.00); POTASSIUM 4.6 mmol/L (3.5-5.1); TOTAL PROTEIN 5.6 g/dl (6.1-8.1)
[2017-03-29] MEDS: CALCIUM ACETATE 667 MG CAP PO SCH ×3 (07:55→17:02)
[2017-03-29] MEDS: INSULIN ASPART [NOVOLOG] 3 ML PEN SC SCH ×4 (07:55→21:00)
[2017-03-29] MEDS: FOLIC ACID 1 MG TAB PO SCH (09:00)
[2017-03-29] MEDS: ASPIRIN 81 MG TAB PO SCH (09:00)
[2017-03-29] MEDS: MULTIVIT/CA CARB/B CMPLX/FA TAB PO SCH (09:00)
[2017-03-29] MEDS: MIDODRINE 5 MG TAB GTB SCH ×2 (09:00→17:00)
[2017-03-29] MEDS: LINAGLIPTIN 5 MG TABLET PO SCH (09:00)
[2017-03-29] MEDS: DOCUSATE SODIUM 100 MG CAP PO SCH ×2 (09:00→20:07)
[2017-03-29] MEDS: CHOLECALCIFEROL 1,000 UNIT TAB PO SCH (09:00)
[2017-03-29] MEDS ORDERED: VANCOMYCIN 1 GM in NS 250 ML IVPB SCH (10:00)
[2017-03-29] MEDS: CEFEPIME 1GM/50 ML (PMX) 50 ML IVPB SCH (10:28)
--- NOTE | 2017-03-29 14:53 | PN ---
Date/Time of Note Date/Time of Note DATE: 03/29/17 TIME: 14:52 Assessment/Plan Lines/Catheters IV Catheter Type (from Nrsg): Saline Lock Marie in Place (from Nrsg): No Assessment/Plan Chief Complaint/Hosp Course fistulogram and possible angioplasty RUE AVF SP for fistulogram No evidence of bleeding will continue dialysis We will follow-up in my office for regular surveillance of the fistula Discussed with Dr. Umanzor Problems: Subjective 24 Hr Interval Summary Constitutional: improved Pain Control: mild Exam/Review of Systems Vital Signs Vitals Vital Signs Date Time Temp Pulse Resp B/P Pulse Ox O2 Delivery O2 Flow Rate FiO2 03/29/17 12:55 Non Rebreather 3.0 03/29/17 12:16 92 03/29/17 11:50 97.7 21 117/67 99 03/29/17 05:52 100 Intake and Output 03/28/17 03/28/17 03/29/17 15:00 23:00 07:00 Intake Total 720 ml Output Total 600 ml Balance 120 ml Exam Neck: non-tender, supple Respiratory: clear to auscultation, normal air movement Cardiovascular: nl pulses, regular rate and rhythm Gastrointestinal: nl liver, spleen, non-tender, soft Results Result Diagram: 03/29/17 0525 03/29/17 0525 MARGO MARIN MD Mar 29, 2017 14:53
[2017-03-29] MEDS: ATORVASTATIN 20 MG TAB PO SCH (20:07)
[2017-03-29] MEDS: MEROPENEM 500MG/50 ML (PMX) 50 ML IVPB SCH (20:57)
[2017-03-29] MEDS ORDERED: MEROPENEM 500MG/50 ML (PMX) 50 ML IVPB SCH (21:00)
--- NOTE | 2017-03-29 21:26 | PN ---
DATE: 03/29/2017 SUBJECTIVE: No events overnight. Patient is confused, lying comfortably in bed. She is afebrile. T-max yesterday was 101.7. VITAL SIGNS: Temperature 98.1, pulse 99, respirations 22, blood pressure 98/56, saturation 99 percent on non-rebreather mask. LABORATORY AND DIAGNOSTIC DATA: WBC 22.2. H and H 8.7 and 27.4, platelets 122, neutrophils 84.4. MICROBIOLOGY: Blood culture on March 27 grew MRSA, 1 out of 2 sets. INDWELLING: Right upper extremity AV fistula. DIAGNOSTICS: Chest x-ray this morning revealed cardiomegaly, new pulmonary vascular congestion and bilateral patchy mid lung and lung base air space disease. ANTIMICROBIALS: Patient is on: 1. Cefepime. 2. Tobramycin. 3. Vancomycin. PHYSICAL EXAMINATION: GENERAL: This is a chronically ill-appearing, elderly woman who is in no distress. HEENT: Head atraumatic, normocephalic. Sclerae anicteric. Buccal mucosa dry. NECK: Supple. CHEST: Rise symmetrical. Breath sounds with bilateral rhonchi. HEART: S1, S2. ABDOMEN: Soft. Bowel sounds present. EXTREMITIES: Without cyanosis. Right upper extremity AV fistula site covered with dressing. ASSESSMENT: 1. Sepsis. 2. Methicillin-resistant Staphylococcus aureus bacteremia, etiology unclear. 3. Healthcare-associated pneumonia, possibly aspiration type. 4. End-stage renal disease. 5. Anemia. 6. Dementia. PLAN: Patient is clinically unchanged; however, with increased leukocytosis and worsening respiratory status. Currently on non- rebreather, status post fever 101.7 yesterday and previous fever was 102.7. She is following by multiple consultants. She is status post right upper extremity fistulogram, status post right subclavian vein angioplasty and control of bleeding. Her chest x-ray looks worse. We will order repeat blood cultures with hemodialysis. We will change cefepime and tobramycin to meropenem. Continue vancomycin. Follow Cardiology/Cardiothoracic Surgery recommendations, order 2D ECHO Dictated By: Antonio Millard NP /vaishali/diogenes /Document#: [id number] NUNU
--- NOTE | 2017-03-29 23:15 | PN ---
Date/Time of Note Date/Time of Note DATE: 03/29/17 TIME: 23:14 Assessment/Plan VTE Prophylaxis VTE Prophylaxis Intervention: other Lines/Catheters IV Catheter Type (from [facility]): Saline Lock Urinary Cath still in place: No Assessment/Plan Chief Complaint/Hosp Course A/P ESRD SEPSIS ANEMIA bacteremia DM CLOTTED AVG s/p surgery Right subclavian vein angioplasty 12 x 40 mm balloo superior vena cava angioplastyn 12 x 40 mm balloon Superior venacavogram AVF REPAIN PLAN HD ANTIBIOTIC per id Problems: Subjective 24 Hr Interval Summary Subjective hx not possible: other (sob+) Respiratory: No pain Cardiovascular: no complaints Gastrointestinal: no complaints Exam/Review of Systems Vital Signs Vitals Vital Signs Date Time Temp Pulse Resp B/P Pulse Ox O2 Delivery O2 Flow Rate FiO2 03/29/17 22:48 99 8.0 03/29/17 20:49 98.2 101 16 111/49 03/29/17 12:55 Non Rebreather 03/29/17 05:52 100 Intake and Output 03/28/17 03/28/17 03/29/17 15:00 23:00 07:00 Intake Total 720 ml Output Total 600 ml Balance 120 ml Exam Respiratory: diminished breath sounds Cardiovascular: regular rate and rhythm Gastrointestinal: bowel sounds (+), soft Musculoskeletal: range of motion (pain) Extremities: edema (+) Results Result Diagram: 03/29/17 0525 03/29/17 0525 Results 24 hrs Laboratory Tests Test 03/29/17 01:46 03/29/17 01:49 03/29/17 05:25 03/29/17 08:17 Bedside Glucose 160 201 Blood Gas Specimen Source Blood arterial Arterial Blood Date Drawn 03/29/2017 2:00:16 AM Arterial Blood pH (Temp corrected) 7.328 L Arterial Blood pCO2 (Temp correct) 34.1 L Arterial Blood pO2 (Temp corrected) 132.8 H Arterial Blood HCO3 17.5 L Arterial Blood Base Excess -7.7 L Arterial Blood Oxygen Saturation 97.2 Artis Test ACCEPTAB Arterial Blood Gas Puncture Site LB Arterial Blood Carboxyhemoglobin 0.3 Arterial Blood Methemoglobin 0.2 Blood Gas A-a O2 Differential 546.1 H Oxyhemoglobin Percent 96.7 Total Hemoglobin 9.5 L Blood Gas Temperature 37.0 Blood Gas Modality MASK - NRB FiO2 100.0 Blood Gas Notified Whom WILFRED BERMUDEZ Blood Gas Notified Time 03/29/2017 2:12:39 AM White Blood Count 22.2 #H Red Blood Count 2.82 L Hemoglobin 8.7 L Hematocrit 27.4 L Mean Corpuscular Volume 97.2 Mean Corpuscular Hemoglobin 30.9 Mean Corpuscular Hemoglobin Concent 31.8 L Red Cell Distribution Width 16.6 H Platelet Count 122 L Mean Platelet Volume 11.4 H Neutrophils % 84.4 H Lymphocytes % 2.8 L Monocytes % 11.0 Eosinophils % 0.0 Basophils % 0.1 Nucleated Red Blood Cells % 0.0 Neutrophils # (Manual) 18.7 H Lymphocytes # 0.6 L Monocytes # 2.5 H Eosinophils # 0.0 Basophils # 0.0 Nucleated Red Blood Cells # 0.0 Sodium Level 147 #H Potassium Level 4.6 Chloride Level 104 # Carbon Dioxide Level 26 Anion Gap 22 H Blood Urea Nitrogen 53 #H Creatinine 2.56 H Glucose Level 171 Calcium Level 9.5 Total Bilirubin 0.3 Direct Bilirubin 0.00 Indirect Bilirubin 0.3 Aspartate Amino Transf (AST/SGOT) 1882 H Alanine Aminotransferase (ALT/SGPT) 1085 H Alkaline Phosphatase 180 #H Total Protein 5.6 L Albumin 2.9 L Globulin 2.70 Albumin/Globulin Ratio 1.07 Random Vancomycin Level 10.1 Test 03/29/17 12:17 03/29/17 16:57 03/29/17 21:07 Bedside Glucose 197 223 H 136 Medications Medications Current Medications Ondansetron HCl (Zofran Inj) 4 mg Q6H PRN IV NAUSEA AND/OR VOMITING; Start 03/21 at 10:00 Acetaminophen (Tylenol Tab) 650 mg Q6H PRN PO PAIN LEVEL 1-3 OR FEVER Last administered on 03/26/17 16:03; Admin Dose 650 MG; Start 03/21/17 at 10:00 Acetaminophen/ Hydrocodone Bitart (Randolph (5/325)) 1 tab Q6H PRN PO MODERATE PAIN LEVEL 4-6 Last administered on 03/26/17 17:19; Admin Dose 1 TAB; Start 03/21/17 at 10:00 Bisacodyl (Dulcolax) 5 mg DAILY PRN PO CONSTIPATION; Start 03/21/17 at 10:00 Pantoprazole (Protonix Tab) 40 mg DAILY@06 PO Last administered on 03/27/17 05 :20; Admin Dose 40 MG; Start 03/22/17 at 06:00 Aspirin (Aspirin) 81 mg DAILY PO Last administered on 03/28/17 08:53; Admin Dose 81 MG; Start 03/22/17 at 09:00 Cholecalciferol (Vitamin D) 1,000 unit DAILY PO Last administered on 03/28/17 08:53; Admin Dose 1,000 UNIT; Start 03/22/17 at 09:00 Docusate Sodium (Colace) 100 mg BID PO Last administered on 03/28/17 08:53; Admin Dose 100 MG; Start 03/21/17 at 21:00 Folic Acid (Folic Acid) 1 mg DAILY PO Last administered on 03/28/17 08:53; Admin Dose 1 MG; Start 03/22/17 at 09:00 Loratadine (Claritin) 10 mg DAILY PRN PO PRN; Start 03/21/17 at 10:00 Multivit/Ca Carb/ B Cmplx/FA/Prenat (Diandra-Svetlana) 1 tab DAILY PO Last administered on 03/28/17 08:53; Admin Dose 1 TAB; Start 03/22/17 at 09:00 Acetaminophen (Tylenol Tab) 500 mg Q6H PRN PO PAIN AND OR ELEVATED TEMP Last administered on 03/24/17 21:28; Admin Dose 500 MG; Start 03/22/17 at 13:30 Diagnostic Test (Pha) (Accu-Chek) 1 ea 02 XX Last administered on 03/25/17 02: 55; Admin Dose 1 EA; Start 03/24/17 at 02:00 Atorvastatin Calcium (Lipitor) 20 mg HS PO Last administered on 03/26/17 20:55 ; Admin Dose 20 MG; Start 03/23/17 at 21:00 Miscellaneous Information 1 ea NOTE XX ; Start 03/23/17 at 16:00 Glucose (Glutose) 15 gm Q15M PRN PO DECREASED GLUCOSE; Start 03/23/17 at 16:00 Glucose (Glutose) 22.5 gm Q15M PRN PO DECREASED GLUCOSE; Start 03/23/17 at 16:00 Dextrose (D50w Syringe) 25 ml Q15M PRN IV DECREASED GLUCOSE; Start 03/23/17 at 16:00 Dextrose (D50w Syringe) 50 ml Q15M PRN IV DECREASED GLUCOSE; Start 03/23/17 at 16:00 Glucagon (Glucagen) 1 mg Q15M PRN IM DECREASED GLUCOSE; Start 03/23/17 at 16:00 Glucose 15 gm 15 gm Q15M PRN BUCCAL DECREASED GLUCOSE; Start 03/23/17 at 16:00 Dextrose/Sodium Chloride (D5-1/2ns) 1,000 ml @ 50 mls/hr Q20H IV Last administered on 03/27/17 22:00; Admin Dose 50 MLS/HR; Start 03/23/17 at 22:00; Status Future Hold Morphine Sulfate (morphine) 2 mg Q8H PRN IV PAIN Last administered on 18:35; Admin Dose 2 MG; Start 03/24/17 at 07:00 Midodrine (Proamatine) 5 mg BID@,17 GTB Last administered on 03/28/17 17:53 ; Admin Dose 5 MG; Start 03/26/17 at 17:00 Linagliptin (Tradjenta) 5 mg DAILY PO Last administered on 03/28/17 08:53; Admin Dose 5 MG; Start 03/26/17 at 12:00 Ergocalciferol (Drisdol) 50,000 unit Sa@09 PO Last administered on 03/26/17 23 :18; Admin Dose 50,000 UNIT; Start 03/26/17 at 17:00 Acetaminophen (Tylenol Supp) 650 mg Q4H PRN [place] PAIN OR TEMP ABOVE 38C; Start at 10:00 Tobramycin PER PHARMACY DOSING NOTE XX ; Start 03/27/17 at 17:00 Meropenem/Sodium Chloride (Merrem 500mg/50 ml(Pmx)) 50 ml @ 100 mls/hr Q12 IVPB Last administered on 03/29/17 20:57; Admin Dose 100 MLS/HR; Start at 21:00 BRANDON MITCHELL MD Mar 29, 2017 23:15
[2017-03-30] VITALS (19 sets, daily range): BP systolic 83–117; BP diastolic 47–59; PULSE 94–106; RESP 16–22
[2017-03-30] MEDS: ACCU-CHEK XX SCH ×5 (02:00→21:37)
[2017-03-30] MEDS: PANTOPRAZOLE (EC) 40 MG TAB PO SCH (06:00)
[2017-03-30] MEDS: LEVOTHYROXINE 50 MCG TAB PO SCH (06:52)
[2017-03-30 07:43] LABS: ABNORMAL IP MESSAGE 1; BASOPHILS % 0.1 % (0.0-2.0); HEMATOCRIT 27.3 % (37.0-47.0); HEMOGLOBIN 8.8 g/dl (12.0-16.0); LYMPHOCYTES % 4.7 % (15.0-51.0); MEAN CORPUSCULAR HEMOGLOBIN 31.9 pg (29.0-33.0); MEAN CORPUSCULAR HGB CONC 32.2 g/dl (32.0-37.0); MEAN CORPUSCULAR VOLUME 98.9 fl (82.0-101.0); MEAN PLATELET VOLUME 11.4 fl (7.4-10.4); MONOCYTE # 1.9 10^3/ul (0.3-0.9); MONOCYTES % 8.6 % (0.0-11.0); NEUTROPHILS % 84.7 % (39.0-77.0); PLATELET COUNT 163 10^3/UL (140-415); RED BLOOD COUNT 2.76 10^6/ul (4.20-5.40); RED CELL DISTRIBUTION WIDTH 16.4 % (11.5-14.5); WHITE BLOOD COUNT 21.8 10^3/ul (4.8-10.8)
[2017-03-30 07:52] LABS: POSITIVE DIFF @See below
[2017-03-30] MEDS: CALCIUM ACETATE 667 MG CAP PO SCH ×3 (07:55→17:55)
[2017-03-30 08:04] LABS: ALBUMIN 2.8 g/dl (3.3-4.9); ALBUMIN/GLOBULIN RATIO 1.03; BILIRUBIN,INDIRECT 0.4 mg/dl (0-1.1); BILIRUBIN,TOTAL 0.4 mg/dl (0.2-1.3); CALCIUM 9.4 mg/dl (8.4-10.2); CREATININE 3.98 mg/dl (0.44-1.00); POTASSIUM 5.1 mmol/L (3.5-5.1); TOTAL PROTEIN 5.5 g/dl (6.1-8.1)
[2017-03-30] MEDS: INSULIN ASPART [NOVOLOG] 3 ML PEN SC SCH ×4 (08:32→21:00)
[2017-03-30] MEDS: FOLIC ACID 1 MG TAB PO SCH (09:00)
[2017-03-30] MEDS: MEROPENEM 500MG/50 ML (PMX) 50 ML IVPB SCH ×2 (09:00→21:26)
[2017-03-30] MEDS: ASPIRIN 81 MG TAB PO SCH (09:00)
[2017-03-30] MEDS: CHOLECALCIFEROL 1,000 UNIT TAB PO SCH (09:00)
[2017-03-30] MEDS: LINAGLIPTIN 5 MG TABLET PO SCH (09:00)
[2017-03-30] MEDS: MULTIVIT/CA CARB/B CMPLX/FA TAB PO SCH (09:00)
[2017-03-30] MEDS: MIDODRINE 5 MG TAB GTB SCH ×2 (09:00→17:00)
[2017-03-30] MEDS: DOCUSATE SODIUM 100 MG CAP PO SCH ×2 (09:00→21:00)
--- NOTE | 2017-03-30 18:22 | PN ---
Date/Time of Note Date/Time of Note DATE: 03/30/17 TIME: 18:18 Assessment/Plan Lines/Catheters IV Catheter Type (from Nrsg): Saline Lock Marie in Place (from Nrsg): No Assessment/Plan Chief Complaint/Hosp Course fistulogram and possible angioplasty RUE AVF SP for fistulogram No evidence of bleeding will continue dialysis We will follow-up in my office for regular surveillance of the fistula Discussed with Dr. Umanzor Discussed with the patient Problems: Subjective 24 Hr Interval Summary Constitutional: improved Pain Control: mild Exam/Review of Systems Vital Signs Vitals Vital Signs Date Time Temp Pulse Resp B/P Pulse Ox O2 Delivery O2 Flow Rate FiO2 03/30/17 16:03 96 03/30/17 15:11 98.1 20 98/52 97 03/30/17 09:30 Simple Mask 6.0 03/29/17 05:52 100 Intake and Output 03/29/17 03/29/17 03/30/17 15:00 23:00 07:00 Intake Total 50 ml 0 ml Balance 50 ml 0 ml Exam Neck: non-tender, supple Respiratory: clear to auscultation, normal air movement Cardiovascular: nl pulses, regular rate and rhythm Gastrointestinal: nl liver, spleen, non-tender, soft Results Result Diagram: 03/30/17 0656 03/30/17 0655 MARGO MARIN MD Mar 30, 2017 18:22
--- NOTE | 2017-03-30 20:50 | PN ---
Date/Time of Note Date/Time of Note DATE: 03/30/17 TIME: 20:47 Assessment/Plan VTE Prophylaxis VTE Prophylaxis Intervention: other Lines/Catheters IV [facility]from [facility] Saline Lock Urinary Cath still in place: No Assessment/Plan Chief Complaint/Hosp Course A/P ESRD SEPSIS ANEMIA bacteremia DM CLOTTED AVG s/p surgery Right subclavian vein angioplasty 12 x 40 mm balloo superior vena cava angioplastyn 12 x 40 mm balloon Superior venacavogram AVF REPAIN acute liver failure PLAN HD ANTIBIOTIC per id dr acevedo to see us liver ck ammonia Problems: Subjective 24 Hr Interval Summary Subjective hx not possible: other (no sob) Respiratory: no complaints Cardiovascular: no complaints Exam/Review of Systems Vital Signs Vitals Vital Signs Date Time Temp Pulse Resp B/P Pulse Ox O2 Delivery O2 Flow Rate FiO2 03/30/17 16:03 96 03/30/17 15:11 98.1 20 98/52 97 03/30/17 09:30 Simple Mask 6.0 03/29/17 05:52 100 Intake and Output 03/29/17 03/29/17 03/30/17 15:00 23:00 07:00 Intake Total 50 ml 0 ml Balance 50 ml 0 ml Exam Respiratory: clear to auscultation Cardiovascular: regular rate and rhythm Gastrointestinal: soft Musculoskeletal: nl extremities to inspection Extremities: normal pulses Neurological: lethargic Results Result Diagram: 03/30/17 0656 03/30/17 0655 Results 24 hrs Laboratory Tests Test 03/29/17 21:07 03/30/17 06:55 03/30/17 06:56 03/30/17 08:12 Bedside Glucose 136 157 Sodium Level 151 H Potassium Level 5.1 Chloride Level 105 Carbon Dioxide Level 26 Anion Gap 25 H Blood Urea Nitrogen 89 #H Creatinine 3.98 #H Glucose Level 146 Calcium Level 9.4 Total Bilirubin 0.4 Direct Bilirubin 0.00 Indirect Bilirubin 0.4 Aspartate Amino Transf (AST/SGOT) 2441 H Alanine Aminotransferase (ALT/SGPT) 1561 H Alkaline Phosphatase 186 H Total Protein 5.5 L Albumin 2.8 L Globulin 2.70 Albumin/Globulin Ratio 1.03 White Blood Count 21.8 H Red Blood Count 2.76 L Hemoglobin 8.8 L Hematocrit 27.3 L Mean Corpuscular Volume 98.9 Mean Corpuscular Hemoglobin 31.9 Mean Corpuscular Hemoglobin Concent 32.2 Red Cell Distribution Width 16.4 H Platelet Count 163 # Mean Platelet Volume 11.4 H Neutrophils % 84.7 H Lymphocytes % 4.7 L Monocytes % 8.6 Eosinophils % 0.0 Basophils % 0.1 Nucleated Red Blood Cells % 0.0 Neutrophils # (Manual) 18.4 H Lymphocytes # 1.0 Monocytes # 1.9 H Eosinophils # 0.0 Basophils # 0.0 Nucleated Red Blood Cells # 0.0 Test 03/30/17 12:07 03/30/17 17:15 Bedside Glucose 156 153 Medications Medications Current Medications Ondansetron HCl (Zofran Inj) 4 mg Q6H PRN IV NAUSEA AND/OR VOMITING; Start 03/21 at 10:00 Acetaminophen (Tylenol Tab) 650 mg Q6H PRN PO PAIN LEVEL 1-3 OR FEVER Last administered on 03/26/17 16:03; Admin Dose 650 MG; Start 03/21/17 at 10:00 Bisacodyl (Dulcolax) 5 mg DAILY PRN PO CONSTIPATION; Start 03/21/17 at 10:00 Pantoprazole (Protonix Tab) 40 mg DAILY@06 PO Last administered on 03/27/17 05 :20; Admin Dose 40 MG; Start 03/22/17 at 06:00 Aspirin (Aspirin) 81 mg DAILY PO Last administered on 03/28/17 08:53; Admin Dose 81 MG; Start 03/22/17 at 09:00 Cholecalciferol (Vitamin D) 1,000 unit DAILY PO Last administered on 03/28/17 08:53; Admin Dose 1,000 UNIT; Start 03/22/17 at 09:00 Docusate Sodium (Colace) 100 mg BID PO Last administered on 03/28/17 08:53; Admin Dose 100 MG; Start 03/21/17 at 21:00 Folic Acid (Folic Acid) 1 mg DAILY PO Last administered on 03/28/17 08:53; Admin Dose 1 MG; Start 03/22/17 at 09:00 Loratadine (Claritin) 10 mg DAILY PRN PO PRN; Start 03/21/17 at 10:00 Multivit/Ca Carb/ B Cmplx/FA/Prenat (Diandra-Svetlana) 1 tab DAILY PO Last administered on 03/28/17 08:53; Admin Dose 1 TAB; Start 03/22/17 at 09:00 Acetaminophen (Tylenol Tab) 500 mg Q6H PRN PO PAIN AND OR ELEVATED TEMP Last administered on 03/24/17 21:28; Admin Dose 500 MG; Start 03/22/17 at 13:30 Diagnostic Test (Pha) (Accu-Chek) 1 ea 02 XX Last administered on 03/25/17 02: 55; Admin Dose 1 EA; Start 03/24/17 at 02:00 Atorvastatin Calcium (Lipitor) 20 mg HS PO Last administered on 03/26/17 20:55 ; Admin Dose 20 MG; Start 03/23/17 at 21:00; Status Future Hold Miscellaneous Information 1 ea NOTE XX ; Start 03/23/17 at 16:00 Glucose (Glutose) 15 gm Q15M PRN PO DECREASED GLUCOSE; Start 03/23/17 at 16:00 Glucose (Glutose) 22.5 gm Q15M PRN PO DECREASED GLUCOSE; Start 03/23/17 at 16:00 Dextrose (D50w Syringe) 25 ml Q15M PRN IV DECREASED GLUCOSE; Start 03/23/17 at 16:00 Dextrose (D50w Syringe) 50 ml Q15M PRN IV DECREASED GLUCOSE; Start 03/23/17 at 16:00 Glucagon (Glucagen) 1 mg Q15M PRN IM DECREASED GLUCOSE; Start 03/23/17 at 16:00 Glucose (Glutose) 15 gm Q15M PRN BUCCAL DECREASED GLUCOSE; Start 03/23/17 at 16: 00 Morphine Sulfate (morphine) 2 mg Q8H PRN IV PAIN Last administered on 18:35; Admin Dose 2 MG; Start 03/24/17 at 07:00 Midodrine (Proamatine) 5 mg BID@ GTB Last administered on 03/28/17 17:53 ; Admin Dose 5 MG; Start 03/26/17 at 17:00 Ergocalciferol (Drisdol) 50,000 unit Sa@09 PO Last administered on 03/26/17 23 :18; Admin Dose 50,000 UNIT; Start 03/26/17 at 17:00 Acetaminophen 650 mg 650 mg Q4H PRN [place] PAIN OR TEMP ABOVE 38C; Start 03/27/17 at 10:00 Meropenem/Sodium Chloride 50 ml @ 100 mls/hr Q12 IVPB Last administered on t 20:57; Admin Dose 100 MLS/HR; Start 03/29/17 at 21:00 Dextrose/Sodium Chloride (D5-1/4ns) 1,000 ml @ 40 mls/hr Q24H IV ; Start at 21:00 BRANDON MITCHELL MD Mar 30, 2017 20:50
[2017-03-30 21:16] LABS: HAAIG REFLEX REFLEX FILED
[2017-03-30] MEDS: DEXTROSE 5%-0.225% NACL 1,000 ML IV SCH (21:26)
[2017-03-30] MEDS ORDERED: ALBUTEROL/IPRATROPIUM (NEB) 3 ML AMP HHN PRN (22:30)
[2017-03-30 22:39] LABS: HEPATITIS B CORE ANTIBODY NEGATIVE (NEGATIVE)
[2017-03-31] VITALS (34 sets, daily range): BP systolic 68–103; BP diastolic 35–68; PULSE 79–116; RESP 18–40
[2017-03-31] MEDS: PANTOPRAZOLE (EC) 40 MG TAB PO SCH (06:00)
[2017-03-31] MEDS: INSULIN ASPART [NOVOLOG] 3 ML PEN SC SCH ×3 (06:56→18:42)
[2017-03-31] MEDS: LEVOTHYROXINE 50 MCG TAB PO SCH (07:00)
[2017-03-31 07:42] LABS: ABNORMAL IP MESSAGE 1; BASOPHILS % 0.1 % (0.0-2.0); EOSINOPHILS % 0.1 % (0.0-7.0); HEMATOCRIT 26.2 % (37.0-47.0); HEMOGLOBIN 8.2 g/dl (12.0-16.0); LYMPHOCYTES # 1.5 10^3/ul (0.8-2.9); LYMPHOCYTES % 7.8 % (15.0-51.0); MEAN CORPUSCULAR HEMOGLOBIN 31.3 pg (29.0-33.0); MEAN CORPUSCULAR HGB CONC 31.3 g/dl (32.0-37.0); MEAN PLATELET VOLUME 11.9 fl (7.4-10.4); MONOCYTE # 1.7 10^3/ul (0.3-0.9); MONOCYTES % 8.4 % (0.0-11.0); NEUTROPHILS % 80.7 % (39.0-77.0); NUCLEATED RED BLOOD CELLS # 0.1 10^3/ul (0.0-0.0); NUCLEATED RED BLOOD CELLS% 0.4 /100WBC (0.0-0.0); PLATELET COUNT 128 10^3/UL (140-415); RED BLOOD COUNT 2.62 10^6/ul (4.20-5.40); RED CELL DISTRIBUTION WIDTH 16.6 % (11.5-14.5); WHITE BLOOD COUNT 19.6 10^3/ul (4.8-10.8)
[2017-03-31 07:44] LABS: POSITIVE DIFF @See below
[2017-03-31] MEDS: CALCIUM ACETATE 667 MG CAP PO SCH ×3 (07:55→17:35)
[2017-03-31 08:12] LABS: ALBUMIN 2.8 g/dl (3.3-4.9); ALBUMIN/GLOBULIN RATIO 0.96; BILIRUBIN,DIRECT 0.1 mg/dl (0.00-0.20); BILIRUBIN,INDIRECT 0.7 mg/dl (0-1.1); BILIRUBIN,TOTAL 0.8 mg/dl (0.2-1.3); CALCIUM 8.8 mg/dl (8.4-10.2); CREATININE 3.44 mg/dl (0.44-1.00); TOTAL PROTEIN 5.7 g/dl (6.1-8.1)
[2017-03-31] MEDS: FOLIC ACID 1 MG TAB PO SCH (09:00)
[2017-03-31] MEDS: DOCUSATE SODIUM 100 MG CAP PO SCH ×2 (09:00→21:00)
[2017-03-31] MEDS: MIDODRINE 5 MG TAB GTB SCH ×2 (09:00→18:42)
[2017-03-31] MEDS: CHOLECALCIFEROL 1,000 UNIT TAB PO SCH (09:00)
[2017-03-31] MEDS: MULTIVIT/CA CARB/B CMPLX/FA TAB PO SCH (09:00)
[2017-03-31] MEDS: ASPIRIN 81 MG TAB PO SCH (09:00)
[2017-03-31] MEDS: MEROPENEM 500MG/50 ML (PMX) 50 ML IVPB SCH (09:36)
--- NOTE | 2017-03-31 09:57 | PN ---
DATE: 03/30/2017 SUBJECTIVE: No events overnight. Patient is lethargic on nonrebreather. Looks comfortable. Temperature 98.1, pulse 102, respirations 20, blood pressure 98/52, saturation 97 percent. LABORATORY AND DIAGNOSTIC DATA: WBC 21.8. H and H 8.8 and 27.3, platelets 163, neutrophils 84.7. BUN 89, creatinine 3.98. MICROBIOLOGY: Blood culture on 03/27 grew MRSA. Repeat blood cultures from yesterday growing gram-positive cocci in clusters. INDWELLING: AV fistula. ANTIMICROBIALS: Meropenem, vancomycin. PHYSICAL EXAMINATION: GENERAL: This is a fragile, chronically ill-appearing, elderly woman who is in no distress. HEENT: Head atraumatic, normocephalic. Sclerae anicteric. Buccal mucosa dry. NECK: Supple. CHEST: Rise symmetrical. Breath sounds with scattered rhonchi. HEART: S1, S2. ABDOMEN: Soft. Bowel sounds present. EXTREMITIES: With trace edema. ASSESSMENT: 1. Sepsis with persistent methicillin-resistant Staphylococcus aureus bacteremia, etiology unclear. Rule out line sepsis versus pneumonia. Rule out endocarditis. 2. End-stage renal disease, hemodialysis dependent. 3. Acute on chronic respiratory failure, possibly ongoing aspiration. 4. History of Clostridium difficile colitis. 5. History of coronary artery bypass grafting. 6. Dementia. 7. Status post right upper extremity fistulogram with subclavian vein angioplasty to control bleeding. PLAN: Patient is clinically stable on appropriate antimicrobials. Repeat blood culture still is positive. We are going to order 2-D echocardiogram. Follow chest x-ray in a.m. Follow vascular surgeon recommendations. Patient is currently on hemodialysis. We are going to repeat blood cultures from AV fistula. Dictated By: Antonio Millard NP /vaishali/bre /Document#: [id number] NUNU
--- NOTE | 2017-03-31 09:59 | RADRPT ---
PROCEDURE: Ultrasound right upper quadrant CLINICAL INDICATION: Abdominal pain. TECHNIQUE: Dumont scale and color Doppler imaging of the right upper quadrant of the abdomen was perf ormed. Evaluation is partially limited due to poor patient cooperation. COMPARISON: CT dated 06/26/2014. FINDINGS: Pancreas: Visualized portions are unremarkable. Liver: Normal in size and echogenicity with no focal hepatic lesion. Hepatopedal flow in the main po rtal vein. Gallbladder: Cholelithiasis without gallbladder wall thickening or pericholecystic fluid. Negative s onographic Montoya's sign. Common bile duct: 4.6 mm in diameter. Right Kidney: 11.2 cm in length. Increased echogenicity. Simple 4 cm cyst at the midportion. No neph rolithiasis, hydronephrosis, or renal mass. A right pleural effusion is partially visualized. IMPRESSION: 1. Cholelithiasis without additional sonographic findings to suggest acute cholecystitis. 2. Echogenic right kidney, consistent with medical renal disease. Simple 4 cm right renal cyst. 3. Right pleural effusion. RPTAT: HLBP .Tad Goyal MD, MD Date Time Electronically viewed and signed by .Tad Goyal MD, MD on 03/30/2017 22:56 .P/
--- NOTE | 2017-03-31 11:13 | RADRPT ---
Echocardiogram Report Patient Name: JAG MICHELLE Gender: Female Date: 1930 Study Date: 31-Mar-2017 [employer] Repairer: Vinh Meng RDCS Location: [facility] Ref. Physician: SANDRA LOPEZ Quality: Good Procedures: Transthoracic echocardiogram with complete 2D, M-Mode, and doppler examination. Indications: r/o endocarditis. 2D/M Mode Doppler Measurement Value Normal Ranges Measurement Value Normal Ranges LVIDd 2D 4.4 3.5 - 5.6 cm STEPHEN Vmax 0.9 cm2 LVIDs 2D 3.2 2.1 - 4.1 cm STEPHEN VTI 0.9 cm2 LVPWd 2D 1.5 0.6 - 1.1 cm AV Mean Boris 2.2 m/sec IVSd 2D 1.4 0.6 - 1.1 cm AV Mean PG 23.2 mmHg AoR Diam 2D 3.0 2.0 - 3.7 cm AV Peak Boris 3.4 m/sec EDV 2D 86.4 cm3 AV Peak PG 31.5 mmHg ESV 2D 31.3 cm3 AV VTI 57.7 cm LA Dimen 2D 4.8 2.3 - 4.0 cm LVOT Mean Boris 0.7 m/sec LVOT Diam 1.9 cm LVOT Mean PG 2.1 mmHg LVOT Peak Boris 1.0 m/sec LVOT Peak PG 4.2 mmHg LVOT VTI 15.8 cm TR Peak Boris 3.5 m/sec TR Peak PG 49.9 mmHg RVSP 58.0 mmHg Findings Left Ventricle: Normal left ventricular systolic function. Normal left ventricular cavity size. Moderate concentric left ventricular hypertrophy. Ejection fraction is visually estimated at 55 %. Abnormal Diastolic Function. Right Ventricle: Normal right ventricular size. Normal right ventricular systolic function. Left Atrium: There is severe enlargement of left atrium. Right Atrium: There is severe enlargement of right atrium. Mitral Valve: Mild mitral leaflet calcification. Moderate mitral annular calcification. Mild mitral valve regurgitation. Echogenic structure is seen on the mitral valve consistent with vegetation. Aortic Valve: Moderate to severe aortic stenosis. Aortic valve Max velocity 3.36 m/sec. Max PG 45.10 mmHg. Mean PG 23.20 mmHg. Aortic valve area 0.80 cm2. Aortic cusps appear moderately calcified. Trace aortic valve regurgitation. Tricuspid Valve: Estimated peak PA systolic pressure 58 mmHg. Tricuspid valve appears mildly thickened. There is moderate to severe tricuspid regurgitation. Pulmonic Valve: Normal pulmonic valve appearance. Pericardium: Normal pericardium with no significant pericardial effusion. Aorta: Normal aortic root. IVC: Dilated IVC with respiratory collapse consistent with elevated right atrial pressure. Conclusions 1.Normal left ventricular systolic function. Normal left ventricular cavity size. Moderate concentric left ventricular hypertrophy. Ejection fraction is visually estimated at 55 %. Abnormal Diastolic Function. 2.Mild mitral leaflet calcification. Moderate mitral annular calcification. Mild mitral valve regurgitation. Echogenic structure is seen on the mitral valve consistent with vegetation. 3.Moderate to severe aortic stenosis. Aortic valve Max velocity 3.36 m/sec. Max PG 45.10 mmHg. Mean PG 23.20 mmHg. Aortic valve area 0.80 cm2. Aortic cusps appear moderately calcified. Trace aortic valve regurgitation. 4.Estimated peak PA systolic pressure 58 mmHg. Tricuspid valve appears mildly thickened. There is moderate to severe tricuspid regurgitation. Electronically Signed By: Xavier Graham 31-Mar-2017 11:02:27 -4300 Patient Name: JAG MICHELLE Study Date: 31-Mar-2017 [id number]
--- NOTE | 2017-03-31 11:26 | CONS ---
Date/Time of Note Date/Time of Note DATE: 03/31/17 TIME: 11:24 Assessment/Plan Assessment/Plan Additional Assessment/Plan 86 yo with MV vegetation per ECHO - severe MR - will advise ICU transfer - CT surgery to see pt. Full note dictated Thank you Consultation Date/Type/Reason Admit Date/Time Mar 22, 2017 at 16:19 Initial Consult Date 03/28/17 Type of Consultation: ID Exam/Review of Systems Vital Signs Vitals Vital Signs Date Time Temp Pulse Resp B/P Pulse Ox O2 Delivery O2 Flow Rate FiO2 03/31/17 08:00 97 03/31/17 07:31 98.9 20 88/54 96 03/30/17 21:03 6.0 03/30/17 20:20 Mask 03/29/17 05:52 100 Intake and Output 03/30/17 03/30/17 03/31/17 15:00 23:00 07:00 Intake Total 500 ml 50 ml 310 ml Output Total 1500 ml 0 ml Balance -1000 ml 50 ml 310 ml Results Result Diagram: 03/31/17 0703 03/31/17 0703 Results 24 hrs Laboratory Tests Test 03/30/17 12:07 03/30/17 17:15 03/30/17 20:57 03/30/17 20:58 Bedside Glucose 156 153 Ammonia 17 Hepatitis B Surface Antigen NEGATIVE Hepatitis B Core Total Antibody NEGATIVE Hepatitis C Antibody NEGATIVE Test 03/30/17 21:34 03/31/17 06:39 03/31/17 07:03 Bedside Glucose 142 201 White Blood Count 19.6 H Red Blood Count 2.62 L Hemoglobin 8.2 L Hematocrit 26.2 L Mean Corpuscular Volume 100.0 Mean Corpuscular Hemoglobin 31.3 Mean Corpuscular Hemoglobin Concent 31.3 L Red Cell Distribution Width 16.6 H Platelet Count 128 #L Mean Platelet Volume 11.9 H Neutrophils % 80.7 H Lymphocytes % 7.8 L Monocytes % 8.4 Eosinophils % 0.1 Basophils % 0.1 Nucleated Red Blood Cells % 0.4 H Neutrophils # (Manual) 15.8 H Lymphocytes # 1.5 Monocytes # 1.7 H Eosinophils # 0.0 Basophils # 0.0 Nucleated Red Blood Cells # 0.1 H Sodium Level 149 H Potassium Level 4.0 Chloride Level 109 Carbon Dioxide Level 25 Anion Gap 19 H Blood Urea Nitrogen 76 H Creatinine 3.44 H Glucose Level 188 Calcium Level 8.8 Total Bilirubin 0.8 Direct Bilirubin 0.10 Indirect Bilirubin 0.7 Aspartate Amino Transf (AST/SGOT) 1467 H Alanine Aminotransferase (ALT/SGPT) 1309 H Alkaline Phosphatase 192 H Total Protein 5.7 L Albumin 2.8 L Globulin 2.90 Albumin/Globulin Ratio 0.96 Medications Medications Current Medications Ondansetron HCl (Zofran Inj) 4 mg Q6H PRN IV NAUSEA AND/OR VOMITING; Start 03/21 at 10:00 Acetaminophen (Tylenol Tab) 650 mg Q6H PRN PO PAIN LEVEL 1-3 OR FEVER Last administered on 03/26/17 16:03; Admin Dose 650 MG; Start 03/21/17 at 10:00 Bisacodyl (Dulcolax) 5 mg DAILY PRN PO CONSTIPATION; Start 03/21/17 at 10:00 Pantoprazole (Protonix Tab) 40 mg DAILY@06 PO Last administered on 03/27/17 05 :20; Admin Dose 40 MG; Start 03/22/17 at 06:00 Aspirin (Aspirin) 81 mg DAILY PO Last administered on 03/28/17 08:53; Admin Dose 81 MG; Start 03/22/17 at 09:00 Cholecalciferol (Vitamin D) 1,000 unit DAILY PO Last administered on 03/28/17 08:53; Admin Dose 1,000 UNIT; Start 03/22/17 at 09:00 Docusate Sodium (Colace) 100 mg BID PO Last administered on 03/28/17 08:53; Admin Dose 100 MG; Start 03/21/17 at 21:00 Folic Acid (Folic Acid) 1 mg DAILY PO Last administered on 03/28/17 08:53; Admin Dose 1 MG; Start 03/22/17 at 09:00 Loratadine (Claritin) 10 mg DAILY PRN PO PRN; Start 03/21/17 at 10:00 Multivit/Ca Carb/ B Cmplx/FA/Prenat (Diandra-Svetlana) 1 tab DAILY PO Last administered on 03/28/17 08:53; Admin Dose 1 TAB; Start 03/22/17 at 09:00 Acetaminophen (Tylenol Tab) 500 mg Q6H PRN PO PAIN AND OR ELEVATED TEMP Last administered on 03/24/17 21:28; Admin Dose 500 MG; Start 03/22/17 at 13:30 Atorvastatin Calcium (Lipitor) 20 mg HS PO Last administered on 03/26/17 20:55 ; Admin Dose 20 MG; Start 03/23/17 at 21:00; Status Future Hold Miscellaneous Information 1 ea NOTE XX ; Start 03/23/17 at 16:00 Glucose (Glutose) 15 gm Q15M PRN PO DECREASED GLUCOSE; Start 03/23/17 at 16:00 Glucose (Glutose) 22.5 gm Q15M PRN PO DECREASED GLUCOSE; Start 03/23/17 at 16:00 Dextrose (D50w Syringe) 25 ml Q15M PRN IV DECREASED GLUCOSE; Start 03/23/17 at 16:00 Dextrose (D50w Syringe) 50 ml Q15M PRN IV DECREASED GLUCOSE; Start 03/23/17 at 16:00 Glucagon (Glucagen) 1 mg Q15M PRN IM DECREASED GLUCOSE; Start 03/23/17 at 16:00 Glucose (Glutose) 15 gm Q15M PRN BUCCAL DECREASED GLUCOSE; Start 03/23/17 at 16: 00 Morphine Sulfate (morphine) 2 mg Q8H PRN IV PAIN Last administered on 18:35; Admin Dose 2 MG; Start 03/24/17 at 07:00 Midodrine (Proamatine) 5 mg BID@ GTB Last administered on 03/28/17 17:53 ; Admin Dose 5 MG; Start 03/26/17 at 17:00 Ergocalciferol (Drisdol) 50,000 unit Sa@09 PO Last administered on 03/26/17 23 :18; Admin Dose 50,000 UNIT; Start 03/26/17 at 17:00 Acetaminophen 650 mg 650 mg Q4H PRN [place] PAIN OR TEMP ABOVE 38C; Start 03/27/17 at 10:00 Meropenem/Sodium Chloride 50 ml @ 100 mls/hr Q12 IVPB Last administered on 09:36; Admin Dose 100 MLS/HR; Start 03/29/17 at 21:00 Dextrose/Sodium Chloride (D5-1/4ns) 1,000 ml @ 40 mls/hr Q24H IV Last administered on 03/30/17 21:26; Admin Dose 40 MLS/HR; Start 03/30/17 at 21:00 Insulin Aspart (Novolog Insulin Pen) NOVOLOG *MILD* ALGORI... Q6 SC Last administered on 03/31/17t 06:56; Admin Dose 2 UNIT; Start 03/31/17 at 06:00 JV KHALIL MD Mar 31, 2017 11:26
--- NOTE | 2017-03-31 13:24 | CONS ---
DATE OF ADMISSION: 03/22/2017 DATE OF CONSULTATION: 03/31/2017 REFERRING PHYSICIAN: Dr. Umanzor REASON FOR CONSULTATION: Evaluation of vegetation on the mitral valve. HISTORY OF PRESENT ILLNESS: Miss Aguilera is an 86-year-old woman known to us from prior admissions. She has been admitted with MRSA bacteremia. I was asked to evaluate her 2D echo. I reviewed the echo carefully. The patient has large vegetation of the mitral valve. The patient also has significant mitral regurgitation. As such, patient fits criteria of endocarditis. Her blood pressure is in the 80s. I discussed the vegetation with Dr. Umanzor and will contact Dr. Lindsey for surgical evaluation. In the meantime, I think it might be reasonable to transfer the patient to the intensive care unit given borderline blood pressure and no significant clinical improvement. The patient has atrial fibrillation, rate controlled. Does not appear to be in significant cardiac overload at this point. PAST MEDICAL HISTORY: Hypertension, dyslipidemia. History of coronary artery disease. History of atrial fibrillation. History of end-stage renal disease. History of left breast cancer with mastectomy. Prior history of coronary artery disease. ALLERGIES: NO KNOWN DRUG ALLERGIES. SOCIAL HISTORY: The patient does not smoke, does not drink and does not use drugs. FAMILY HISTORY: Negative for sudden cardiac or premature coronary artery disease. REVIEW OF SYSTEMS: The patient is not responding to my evaluation. Normotensive, no fevers. HEENT: No changes. CARDIAC: No chest pain reported. RESPIRATORY: No shortness of breath. GASTROINTESTINAL: No nausea or vomiting, no constipation. GENITOURINARY: No dysuria. NEUROLOGICAL: . PSYCHIATRIC: No history of psychiatric illness. PHYSICAL EXAMINATION: VITAL SIGNS: Currently temperature is 98.9, heart rate is 97, blood pressure 88/64. GENERAL APPEARANCE: A thin, well-nourished woman, in no acute distress. Alert and oriented x0 but arousable. HEENT: Head is normocephalic. EOMI. NECK: Supple. JVD 6-7 cm. There is no adenopathy. HEART: Irregular and shows significant midsystolic murmur radiating to the axilla. LUNGS: Coarse to the base. ABDOMEN: Bowel sounds present. There is no hepatosplenomegaly. . EXTREMITIES: No edema. LABORATORY: White blood cell count 19.9, hemoglobin 11.2, platelets 128. INR is 0.9. Sodium 149, potassium 4.0, BUN 76. Creatinine 2.3. AST and ALT are elevated to 1400. No troponin was drawn. ASSESSMENT AND PLAN:: 1. Mitral valve vegetation. The patient has mitral valve vegetation consistent with endocarditis by clinical picture. The patient also has open mitral regurgitation. I discussed the case with Dr. Umanzor. Will ask Dr. Lindsey to evaluate the patient. For now, will transfer to ICU for supportive measures. 2. Hypertension. Blood pressure on the low side. Continue to monitor in ICU on telemetry. 3. End-stage renal disease. The patient is on hemodialysis. Continue to follow. 4. Atrial fibrillation, rate controlled for now. No bradyarrhythmia noted. Continue to monitor closely. 5. History of coronary artery disease. No chest pain noted. Will send a set of troponins to establish a baseline. 6. Bacteremia. Infectious Disease follows. Continue antibiotic therapy. 7. I would like to thank Dr. Umanzor for referring this patient for my evaluation. Dictated By: Xavier Graham MD /vaishali/milan /Document#: [id number]
--- NOTE | 2017-03-31 16:44 | RADRPT ---
PROCEDURE: XR Chest. CLINICAL INDICATION: NG tube placement TECHNIQUE: Single frontal chest x-ray. COMPARISON: 03/29/2017 FINDINGS: There has been placement of a nasogastric tube with tip extending into the stomach. There is near c omplete opacification left hemithorax consistent with atelectasis or consolidation of the left lung .. There is a small left pleural effusion. The right lung is clear.. Cardiomegaly with calcific a therosclerosis of the aorta is present. Sternotomy wires, right axillary node dissection clips and right upper extremity vascular stent is seen.. There is old trauma with deformity of the left demetrio l head.. IMPRESSION: Near complete opacity of the left hemithorax consistent with atelectasis or dense consolidation of t he left lung. Small left pleural effusion. Nasogastric tube placed with tip extending into the stomach.. RPTAT: GG .Aakash Patel MD, Date Time Electronically viewed and signed by .Aakash Patel MD, on 03/31/2017 16:44 .L/
[2017-03-31] MEDS: ACETAMINOPHEN 325 MG TAB PO PRN (18:45)
--- NOTE | 2017-03-31 19:52 | PN ---
Date/Time of Note Date/Time of Note DATE: 03/31/17 TIME: 19:51 Assessment/Plan VTE Prophylaxis VTE Prophylaxis Intervention: other Lines/Catheters IV [facility]ter [facility] (from [facility]): [facility] Urinary Cath still in place: No Assessment/Plan Chief Complaint/Hosp Course A/P ESRD SEPSIS endocarditis ANEMIA bacteremia DM CLOTTED AVG s/p surgery Right subclavian vein angioplasty 12 x 40 mm balloo superior vena cava angioplastyn 12 x 40 mm balloon Superior venacavogram AVF REPAIN acute liver failure lung atelectasis PLAN HD ANTIBIOTIC per id dr acevedo to see us liver ck ammonia dr bradford to see dr cee called to see Problems: Subjective 24 Hr Interval Summary Respiratory: no complaints, No shortness of breath Cardiovascular: no complaints Gastrointestinal: no complaints, No pain Exam/Review of Systems Vital Signs Vitals Vital Signs Date Time Temp Pulse Resp B/P Pulse Ox O2 Delivery O2 Flow Rate FiO2 03/31/17 17:30 101 29 97/63 100 03/31/17 16:00 Nasal Cannula 6.0 03/31/17 16:00 98.3 03/29/17 05:52 100 Intake and Output 03/30/17 03/30/17 03/31/17 15:00 23:00 07:00 Intake Total 500 ml 50 ml 310 ml Output Total 1500 ml 0 ml Balance -1000 ml 50 ml 310 ml Exam Respiratory: diminished breath sounds Cardiovascular: regular rate and rhythm Gastrointestinal: bowel sounds (+), soft Extremities: No edema Results Result Diagram: 03/31/17 0703 03/31/17 0703 Results 24 hrs Laboratory Tests Test 03/30/17 20:57 03/30/17 20:58 03/30/17 21:34 03/31/17 06:39 Ammonia 17 Hepatitis B Surface Antigen NEGATIVE Hepatitis B Core Total Antibody NEGATIVE Hepatitis C Antibody NEGATIVE Bedside Glucose 142 201 Test 03/31/17 07:03 03/31/17 12:29 03/31/17 18:25 White Blood Count 19.6 H Red Blood Count 2.62 L Hemoglobin 8.2 L Hematocrit 26.2 L Mean Corpuscular Volume 100.0 Mean Corpuscular Hemoglobin 31.3 Mean Corpuscular Hemoglobin Concent 31.3 L Red Cell Distribution Width 16.6 H Platelet Count 128 #L Mean Platelet Volume 11.9 H Neutrophils % 80.7 H Lymphocytes % 7.8 L Monocytes % 8.4 Eosinophils % 0.1 Basophils % 0.1 Nucleated Red Blood Cells % 0.4 H Neutrophils # (Manual) 15.8 H Lymphocytes # 1.5 Monocytes # 1.7 H Eosinophils # 0.0 Basophils # 0.0 Nucleated Red Blood Cells # 0.1 H Sodium Level 149 H Potassium Level 4.0 Chloride Level 109 Carbon Dioxide Level 25 Anion Gap 19 H Blood Urea Nitrogen 76 H Creatinine 3.44 H Glucose Level 188 Calcium Level 8.8 Total Bilirubin 0.8 Direct Bilirubin 0.10 Indirect Bilirubin 0.7 Aspartate Amino Transf (AST/SGOT) 1467 H Alanine Aminotransferase (ALT/SGPT) 1309 H Alkaline Phosphatase 192 H Total Protein 5.7 L Albumin 2.8 L Globulin 2.90 Albumin/Globulin Ratio 0.96 Bedside Glucose 236 H 202 Medications Medications Current Medications Ondansetron HCl (Zofran Inj) 4 mg Q6H PRN IV NAUSEA AND/OR VOMITING; Start 03/21 at 10:00 Acetaminophen (Tylenol Tab) 650 mg Q6H PRN PO PAIN LEVEL 1-3 OR FEVER Last administered on 03/31/17 18:45; Admin Dose 650 MG; Start 03/21/17 at 10:00 Bisacodyl (Dulcolax) 5 mg DAILY PRN PO CONSTIPATION; Start 03/21/17 at 10:00 Pantoprazole (Protonix Tab) 40 mg DAILY@06 PO Last administered on 03/27/17 05 :20; Admin Dose 40 MG; Start 03/22/17 at 06:00 Aspirin (Aspirin) 81 mg DAILY PO Last administered on 03/28/17 08:53; Admin Dose 81 MG; Start 03/22/17 at 09:00 Cholecalciferol (Vitamin D) 1,000 unit DAILY PO Last administered on 03/28/17 08:53; Admin Dose 1,000 UNIT; Start 03/22/17 at 09:00 Docusate Sodium (Colace) 100 mg BID PO Last administered on 03/28/17 08:53; Admin Dose 100 MG; Start 03/21/17 at 21:00 Folic Acid (Folic Acid) 1 mg DAILY PO Last administered on 03/28/17 08:53; Admin Dose 1 MG; Start 03/22/17 at 09:00 Loratadine (Claritin) 10 mg DAILY PRN PO PRN; Start 03/21/17 at 10:00 Multivit/Ca Carb/ B Cmplx/FA/Prenat (Diandra-Svetlana) 1 tab DAILY PO Last administered on 03/28/17 08:53; Admin Dose 1 TAB; Start 03/22/17 at 09:00 Acetaminophen (Tylenol Tab) 500 mg Q6H PRN PO PAIN AND OR ELEVATED TEMP Last administered on 03/24/17 21:28; Admin Dose 500 MG; Start 03/22/17 at 13:30 Miscellaneous Information 1 ea NOTE XX ; Start 03/23/17 at 16:00 Glucose (Glutose) 15 gm Q15M PRN PO DECREASED GLUCOSE; Start 03/23/17 at 16:00 Glucose (Glutose) 22.5 gm Q15M PRN PO DECREASED GLUCOSE; Start 03/23/17 at 16:00 Dextrose (D50w Syringe) 25 ml Q15M PRN IV DECREASED GLUCOSE; Start 03/23/17 at 16:00 Dextrose (D50w Syringe) 50 ml Q15M PRN IV DECREASED GLUCOSE; Start 03/23/17 at 16:00 Glucagon (Glucagen) 1 mg Q15M PRN IM DECREASED GLUCOSE; Start 03/23/17 at 16:00 Glucose (Glutose) 15 gm Q15M PRN BUCCAL DECREASED GLUCOSE; Start 03/23/17 at 16: 00 Morphine Sulfate (morphine) 2 mg Q8H PRN IV PAIN Last administered on 18:35; Admin Dose 2 MG; Start 03/24/17 at 07:00 Midodrine (Proamatine) 5 mg BID@ GTB Last administered on 03/31/17 18:42 ; Admin Dose 5 MG; Start 03/26/17 at 17:00 Ergocalciferol (Drisdol) 50,000 unit Sa@09 PO Last administered on 03/26/17 23 :18; Admin Dose 50,000 UNIT; Start 03/26/17 at 17:00 Acetaminophen 650 mg 650 mg Q4H PRN [place] PAIN OR TEMP ABOVE 38C; Start 03/27/17 at 10:00 Dextrose/Sodium Chloride (D5-1/4ns) 1,000 ml @ 10 mls/hr Q24H IV Last administered on 03/30/17 21:26; Admin Dose 40 MLS/HR; Start 03/30/17 at 21:00 Insulin Aspart (Novolog Insulin Pen) NOVOLOG *MILD* ALGORI... Q6 SC Last administered on 03/31/17 18:42; Admin Dose 2 UNIT; Start 03/31/17 at 06:00 Miscellaneous Information 1 ONCE ONCE XX ; Start 04/01/17 at 05:00; Stop at 05:01 Meropenem/Sodium Chloride (Merrem 500mg/50 ml(Pmx)) 50 ml @ 100 mls/hr Q24H IVPB ; Start 03/31/17 at 21:00 BRANDON MITCHELL MD Mar 31, 2017 19:52
[2017-03-31] MEDS: DEXTROSE 5%-0.225% NACL 1,000 ML IV SCH (21:00)
[2017-03-31] MEDS ORDERED: MEROPENEM 500MG/50 ML (PMX) 50 ML IVPB SCH (21:00)
[2017-04-01] VITALS (57 sets, daily range): BP systolic 71–183; BP diastolic 35–75; PULSE 79–125; RESP 20–49
[2017-04-01] MEDS: INSULIN ASPART [NOVOLOG] 3 ML PEN SC SCH ×4 (01:11→18:00)
[2017-04-01] MEDS: PANTOPRAZOLE (EC) 40 MG TAB PO SCH (05:43)
[2017-04-01 06:13] LABS: ALBUMIN 2.9 g/dl (3.3-4.9); ALBUMIN/GLOBULIN RATIO 0.85; BILIRUBIN,INDIRECT 0.6 mg/dl (0-1.1); BILIRUBIN,TOTAL 0.6 mg/dl (0.2-1.3); CALCIUM 8.6 mg/dl (8.4-10.2); POTASSIUM 4.8 mmol/L (3.5-5.1); TOTAL PROTEIN 6.3 g/dl (6.1-8.1)
[2017-04-01 06:16] LABS: AADO2 Arterial 159.5 mmHg (7.0-24.0); Allen Test ACCEPTAB; Arterial Base Excess -3.2 mmol/L (-3.0-3); Arterial COHb 1.1 % (0.0-3.0); Arterial Fraction of Oxyhgb 89.9 % (93.0-99.0); Arterial HCO3 22.2 mmol/L (22.0-26.0); Arterial MetHb 0.3 % (0.0-1.5); Arterial Total Hemglobin 8.5 g/dl (12.0-18.0); MODE NASAL CANNULA
[2017-04-01 06:33] LABS: CREATININE 4.45 mg/dl (0.44-1.00)
[2017-04-01] MEDS ORDERED: EPINEPHrine 0.1 MG/ML SYG ONE ×4 (07:00→19:34)
[2017-04-01] MEDS ORDERED: AMIODARONE 150 MG INJ ONE (07:00)
[2017-04-01] MEDS ORDERED: CA CHLORIDE 10% 10 ML SYRINGE ONE (07:00)
[2017-04-01] MEDS ORDERED: NA BICARBONATE 8.4% 50 ML SYG ONE (07:00)
[2017-04-01] MEDS ORDERED: LIDOCAINE 100 MG SYRINGE ONE (07:00)
[2017-04-01 07:10] LABS: ABNORMAL IP MESSAGE 1; BASOPHIL # 0.1 10^3/ul (0.0-0.1); BASOPHILS % 0.2 % (0.0-2.0); EOSINOPHILS % 0.1 % (0.0-7.0); HEMATOCRIT 28.5 % (37.0-47.0); LYMPHOCYTES # 2.3 10^3/ul (0.8-2.9); MEAN CORPUSCULAR HEMOGLOBIN 32.1 pg (29.0-33.0); MEAN CORPUSCULAR HGB CONC 31.6 g/dl (32.0-37.0); MEAN CORPUSCULAR VOLUME 101.8 fl (82.0-101.0); MEAN PLATELET VOLUME 11.8 fl (7.4-10.4); MONOCYTE # 1.7 10^3/ul (0.3-0.9); MONOCYTES % 6.6 % (0.0-11.0); NEUTROPHILS % 78.9 % (39.0-77.0); NUCLEATED RED BLOOD CELLS # 0.3 10^3/ul (0.0-0.0); NUCLEATED RED BLOOD CELLS% 1.2 /100WBC (0.0-0.0); PLATELET COUNT 157 10^3/UL (140-415); RED CELL DISTRIBUTION WIDTH 16.4 % (11.5-14.5)
[2017-04-01 07:27] LABS: POSITIVE DIFF @See below
--- NOTE | 2017-04-01 07:41 | RADRPT ---
PROCEDURE: XR Chest. CLINICAL INDICATION: Shortness of breath TECHNIQUE: An AP view of the chest was obtained. COMPARISON: Chest x-ray dated 03/31/2017 FINDINGS: The tip of the enteric tube projects over the left upper quadrant. There lingular and left lower lobe alveolar opacities with small left pleural effusion. No pneumoth orax is seen. The cardiomediastinal silhouette is mildly enlarged . Calcifications are seen within the aortic arch. There are post cardiac surgery changes with sternotomy wires. The osseous structu res demonstrate an old fracture deformity of the left proximal humerus. IMPRESSION: 1. Lingular and left lower lobe alveolar opacities, likely reflecting pneumonia. There is improved aeration of the left upper lobe when compared to the prior examination. 2. Small left pleural effusion. 3. Mild cardiomegaly and aortic atherosclerosis. 4. The tip of the enteric tube projects over the left upper quadrant. RPTAT: HH .Tammie Winkler MD, MD Date Time Electronically viewed and signed by .Tammie Winkler MD, on 04/01/2017 07:41 .G/
--- NOTE | 2017-04-01 08:08 | PN ---
DATE: 03/31/2017 SUBJECTIVE DATA: The patient remains clinically unchanged, on nonrebreather, lethargic, afebrile. OBJECTIVE DATA: Temperature 98.1, pulse 107, respirations 18, blood pressure 90/51, and saturation 98 percent. LABORATORY: WBC 19.6, H and H 8.2 and 26.2, platelets 128, and neutrophils 80.7. INDWELLING: Right upper extremity AV fistula. BLOOD CULTURES: Blood culture on admission and repeat blood culture on March 29, growing Staph aureus, MRSA. DIAGNOSTICS: 2D echo revealed mitral valve vegetation. ANTIMICROBIALS: The patient is on IV meropenem and vancomycin. PHYSICAL EXAMINATION: GENERAL: This is a chronically ill-appearing, fragile elderly woman who is lying comfortably in bed. The patient is lethargic. HEENT: Head atraumatic, normocephalic. Sclerae anicteric. Buccal mucosa dry. NECK: Supple. CHEST: Rise symmetrical. Breath sounds with bilateral rhonchi. HEART: S1, S2. ABDOMEN: Soft. Bowel sounds present. EXTREMITIES: Without cyanosis. ASSESSMENT: 1. Sepsis with ongoing bacteremia secondary to endocarditis. 2. End-stage renal disease, hemodialysis dependent. 3. Acute respiratory failure, possible aspiration pneumonia, as well as fluid overload. 4. Coronary artery disease. 5. History of coronary artery bypass grafting. 6. Dementia. 7. History of recent right upper extremity fistulogram with subclavian vein angioplasty for control of the bleeding. 8. History of Clostridium difficile colitis. PLAN: Patient remains unchanged. She is on appropriate antimicrobials. She is being followed by Cardiology and Cardiothoracic surgery. Plan to transfer to ICU. The patient is full code. Overall prognosis is guarded. Dictated By: Antonio Millard NP /vaishali/lina /Document#: [id number] NUNU
[2017-04-01 08:17] LABS: AADO2 Arterial 379.5 mmHg (7.0-24.0); Allen Test ACCEPTAB; Arterial Base Excess 0 mmol/L (-3.0-3); Arterial COHb 1.8 % (0.0-3.0); Arterial Fraction of Oxyhgb 89.7 % (93.0-99.0); Arterial HCO3 25.5 mmol/L (22.0-26.0); Arterial MetHb 0.3 % (0.0-1.5); Arterial Total Hemglobin 8.1 g/dl (12.0-18.0); Blood Gas IEPAP 15/5; MODE MASK - BIPAP
[2017-04-01] MEDS: MIDODRINE 5 MG TAB GTB SCH ×2 (08:39→17:00)
[2017-04-01] MEDS: LEVOTHYROXINE 50 MCG TAB PO SCH (08:39)
[2017-04-01] MEDS: CALCIUM ACETATE 667 MG CAP PO SCH ×3 (08:39→17:58)
[2017-04-01] MEDS: ASPIRIN 81 MG TAB PO SCH (08:39)
[2017-04-01] MEDS: DOCUSATE SODIUM 100 MG CAP PO SCH (08:39)
[2017-04-01] MEDS: MULTIVIT/CA CARB/B CMPLX/FA TAB PO SCH (08:40)
[2017-04-01] MEDS: CHOLECALCIFEROL 1,000 UNIT TAB PO SCH (08:40)
[2017-04-01] MEDS: FOLIC ACID 1 MG TAB PO SCH (08:40)
[2017-04-01] MEDS ORDERED: NORepinephrine 8MG/250 ML (PMX 250 ML ONE ×2 (09:14→16:31)
[2017-04-01] MEDS ORDERED: VANCOMYCIN IV PER PHARMACY XX SCH (09:30)
--- NOTE | 2017-04-01 10:13 | RADRPT ---
PROCEDURE: XR Chest. CLINICAL INDICATION: Central line placement TECHNIQUE: An AP view of the chest was obtained. COMPARISON: Chest x-ray formed earlier on the same date FINDINGS: The tip of the enteric tube projects over the left upper quadrant. There has been interval insertion of a right internal jugular central venous catheter with tip in the mid SVC. There is a left pleural effusion with diffuse left lung interstitial opacities. There is prominence of the right lung interstitial markings. No pneumothorax is seen. The cardiomediastinal silhouett e is mildly enlarged . Calcifications are seen within the aortic arch. There are post cardiac surg monie changes with sternotomy wires. The osseous structures demonstrate an old fracture deformity of t he left proximal humerus. IMPRESSION: 1. Left pleural effusion with diffuse left lung interstitial opacities, increased when compared to the prior examination. 2. Prominent right lung interstitial markings, suggesting interstitial edema. 3. Mild cardiomegaly and aortic atherosclerosis. 4. Tubes and lines, as described above. RPTAT: .Tammie Winkler MD, MD Date Time Electronically viewed and signed by .Tammie Winkler MD, on 04/01/2017 10:13 .G/
[2017-04-01] MEDS ORDERED: PROPOFOL 100 ML IV SCH (10:30)
--- NOTE | 2017-04-01 10:41 | RADRPT ---
PROCEDURE: XR Chest. CLINICAL INDICATION: Endotracheal tube placement TECHNIQUE: An AP view of the chest was obtained. COMPARISON: Chest x-ray formed earlier on the same date FINDINGS: The endotracheal tube tip is 1.7 cm above the andrew. The tip of the enteric tube extends below the left diaphragm. There is a right internal jugular central venous catheter with tip in the mid SVC. There is a left pleural effusion with diffuse left lung interstitial opacities. There is prominence of the right lung interstitial markings. No pneumothorax is seen. The cardiomediastinal silhouett e is mildly enlarged . Calcifications are seen within the aortic arch. There are post cardiac surg monie changes with sternotomy wires. The osseous structures demonstrate an old fracture deformity of t he left proximal humerus. IMPRESSION: 1. Left pleural effusion with diffuse left lung interstitial opacities, mildly improved when compar ed to the prior examination. 2. Prominent right lung interstitial markings, suggesting interstitial edema. 3. Mild cardiomegaly and aortic atherosclerosis. 4. Tubes and lines, as described above. RPTAT: HH .Tammie Winkler MD, MD Date Time Electronically viewed and signed by .Tammie Winkler MD, MD on 04/01/2017 10:40 .G/
--- NOTE | 2017-04-01 10:58 | CONS ---
Date/Time of Note Date/Time of Note DATE: 04/01/17 TIME: 10:55 Assessment/Plan Assessment/Plan Additional Assessment/Plan 1. Mitral valve vegetation. The patient has mitral valve vegetation consistent with endocarditis by clinical picture - now with acute decompensation. Intubated - con''t to keep euvolemic - on levo gtt now. 2. Hypertension. Blood pressure on the low side. Continue to monitor in ICU on telemetry. Levo gtt now. 3. End-stage renal disease. The patient is on hemodialysis.Continue to follow. Remove fluid as tolerated. 4. Atrial fibrillation, rate controlled for now. No bradyarrhythmia noted. Continue to monitor closely. NOW in sinus. 5. History of coronary artery disease. No chest pain noted. Will send a set of troponins to establish a baseline. 6. Bacteremia. Infectious Disease follows. Continue antibiotic therapy. ID team follows. I would like to thank Dr. Umanzor for referring this patient for my evaluation. Consultation Date/Type/Reason Admit Date/Time Mar 22, 2017 at 16:19 Initial Consult Date 03/28/17 Type of Consultation: ID [id number] HR Interval Summary Free Text/Dictation mitral valve vegetation consistent with endocarditis by clinical picture - now with acute decompensation. Intubated - con''t to keep euvolemic - on levo gtt now. ROS: + fever, no chills, no nausea, no vomiting, no diarrhea/constipation No recent weight changes No chest pain, no PND, no orthopnea + SOB No dizziness, blurred vision No thirst, no heat or cold intolerance Exam/Review of Systems Vital Signs Vitals Vital Signs Date Time Temp Pulse Resp B/P Pulse Ox O2 Delivery O2 Flow Rate FiO2 04/01/17 10:00 97 24 100 100 04/01/17 06:46 2.0 04/01/17 06:04 96.6 04/01/17 06:00 81/42 04/01/17 00:00 Nasal Cannula Intake and Output 03/31/17 03/31/17 04/01/17 15:00 23:00 07:00 Intake Total 0 ml 250 ml 60 ml Output Total 0 ml 0 ml Balance 0 ml 250 ml 60 ml Exam General: WN/WD/NAD, AOx 0 HEENT: Unicetric/atraumatic/EOMI (does not follow commands) - intubated now NECK: JVD elevated, no thyromegaly Lymph: no lymphadenopathy HEART: regular with no S3, 4/ systolic murmur at apex - harsh LUNGS: Coarse sounds ABD: soft, NT, ND, +BS : Intact Neuro: non focal SKIN: chronic changes EXT: trace edema Results Result Diagram: 04/01/17 0630 04/01/17 0535 Results 24 hrs Laboratory Tests Test 03/31/17 12:29 03/31/17 18:25 04/01/17 01:10 04/01/17 05:35 Bedside Glucose 236 H 202 168 Sodium Level 155 H Potassium Level 4.8 Chloride Level 106 Carbon Dioxide Level 25 Anion Gap 29 #H Blood Urea Nitrogen 96 H Creatinine 4.45 #H Glucose Level 201 Calcium Level 8.6 Total Bilirubin 0.6 Direct Bilirubin 0.00 Indirect Bilirubin 0.6 Aspartate Amino Transf (AST/SGOT) 732 H Alanine Aminotransferase (ALT/SGPT) 879 H Alkaline Phosphatase 204 H Total Protein 6.3 Albumin 2.9 L Globulin 3.40 H Albumin/Globulin Ratio 0.85 Random Vancomycin Level 16.7 Test 04/01/17 05:36 04/01/17 05:55 04/01/17 06:30 04/01/17 07:00 Bedside Glucose 204 Blood Gas Specimen Source Blood arterial Blood arterial Arterial Blood Date Drawn 04/01/2017 6:00:46 AM 04/01/2017 8:00:49 AM Arterial Blood pH (Temp corrected) 7.351 7.362 Arterial Blood pCO2 (Temp correct) 41.0 46.0 H Arterial Blood pO2 (Temp corrected) 71.3 L 70.2 L Arterial Blood HCO3 22.2 25.5 Arterial Blood Base Excess -3.2 L 0 Arterial Blood Oxygen Saturation 91.2 L 91.6 L Artis Test ACCEPTAB ACCEPTAB Arterial Blood Gas Puncture Site Right Radial Right Radial Arterial Blood Carboxyhemoglobin 1.1 1.8 Arterial Blood Methemoglobin 0.3 0.3 Blood Gas A-a O2 Differential 159.5 H 379.5 H Oxyhemoglobin Percent 89.9 L 89.7 L Total Hemoglobin 8.5 L 8.1 L Blood Gas Temperature 37.0 37.0 Blood Gas Modality NASAL CANNULA MASK - BIPAP FiO2 39.0 70.0 Blood Gas Notified Whom LEOLA MENDIETA Blood Gas Notified Time 04/01/2017 6:16:16 AM 04/01/2017 8:17:38 AM White Blood Count 26.0 #H Red Blood Count 2.80 L Hemoglobin 9.0 L Hematocrit 28.5 L Mean Corpuscular Volume 101.8 H Mean Corpuscular Hemoglobin 32.1 Mean Corpuscular Hemoglobin Concent 31.6 L Red Cell Distribution Width 16.4 H Platelet Count 157 # Mean Platelet Volume 11.8 H Neutrophils % 78.9 H Lymphocytes % 9.0 L Monocytes % 6.6 Eosinophils % 0.1 Basophils % 0.2 Nucleated Red Blood Cells % 1.2 H Neutrophils # (Manual) 20 H Lymphocytes # 2.3 Monocytes # 1.7 H Eosinophils # 0.0 Basophils # 0.1 Nucleated Red Blood Cells # 0.3 H Blood Gas Respiration Rate 20.0 Blood Gas Actual Respiration Rate 32 Blood Gas IPAP/EPAP Ratio 15/5 Medications Medications Current Medications Ondansetron HCl (Zofran Inj) 4 mg Q6H PRN IV NAUSEA AND/OR VOMITING; Start 03/21 at 10:00 Acetaminophen (Tylenol Tab) 650 mg Q6H PRN PO PAIN LEVEL 1-3 OR FEVER Last administered on 03/31/17 18:45; Admin Dose 650 MG; Start 03/21/17 at 10:00 Bisacodyl (Dulcolax) 5 mg DAILY PRN PO CONSTIPATION; Start 03/21/17 at 10:00 Pantoprazole (Protonix Tab) 40 mg DAILY@06 PO Last administered on 04/01/17 05 :43; Admin Dose 40 MG; Start 03/22/17 at 06:00 Aspirin (Aspirin) 81 mg DAILY PO Last administered on 04/01/17 08:39; Admin Dose 81 MG; Start 03/22/17 at 09:00 Cholecalciferol (Vitamin D) 1,000 unit DAILY PO Last administered on 04/01/17 08:40; Admin Dose 1,000 UNIT; Start 03/22/17 at 09:00 Docusate Sodium (Colace) 100 mg BID PO Last administered on 04/01/17 08:39; Admin Dose 100 MG; Start 03/21/17 at 21:00 Folic Acid (Folic Acid) 1 mg DAILY PO Last administered on 04/01/17 08:40; Admin Dose 1 MG; Start 03/22/17 at 09:00 Loratadine (Claritin) 10 mg DAILY PRN PO PRN; Start 03/21/17 at 10:00 Multivit/Ca Carb/ B Cmplx/FA/Prenat (Diandra-Svetlana) 1 tab DAILY PO Last administered on 04/01/17 08:40; Admin Dose 1 TAB; Start 03/22/17 at 09:00 Acetaminophen (Tylenol Tab) 500 mg Q6H PRN PO PAIN AND OR ELEVATED TEMP Last administered on 03/24/17 21:28; Admin Dose 500 MG; Start 03/22/17 at 13:30 Miscellaneous Information 1 ea NOTE XX ; Start 03/23/17 at 16:00 Glucose (Glutose) 15 gm Q15M PRN PO DECREASED GLUCOSE; Start 03/23/17 at 16:00 Glucose (Glutose) 22.5 gm Q15M PRN PO DECREASED GLUCOSE; Start 03/23/17 at 16:00 Dextrose (D50w Syringe) 25 ml Q15M PRN IV DECREASED GLUCOSE; Start 03/23/17 at 16:00 Dextrose (D50w Syringe) 50 ml Q15M PRN IV DECREASED GLUCOSE; Start 03/23/17 at 16:00 Glucagon (Glucagen) 1 mg Q15M PRN IM DECREASED GLUCOSE; Start 03/23/17 at 16:00 Glucose (Glutose) 15 gm Q15M PRN BUCCAL DECREASED GLUCOSE; Start 03/23/17 at 16: 00 Morphine Sulfate (morphine) 2 mg Q8H PRN IV PAIN Last administered on 18:35; Admin Dose 2 MG; Start 03/24/17 at 07:00 Midodrine (Proamatine) 5 mg BID@ GTB Last administered on 04/01/17 08:39 ; Admin Dose 5 MG; Start 03/26/17 at 17:00 Ergocalciferol (Drisdol) 50,000 unit Sa@09 PO Last administered on 03/26/17 23 :18; Admin Dose 50,000 UNIT; Start 03/26/17 at 17:00 Acetaminophen 650 mg 650 mg Q4H PRN NC PAIN OR TEMP ABOVE 38C; Start 03/27/17 at 10:00 Dextrose/Sodium Chloride (D5-1/4ns) 1,000 ml @ 10 mls/hr Q24H IV Last administered on 03/30/17 21:26; Admin Dose 40 MLS/HR; Start 03/30/17 at 21:00 Insulin Aspart NOVOLOG *MILD* ALGORI... Q6 SC Last administered on 04/01/17 05 :41; Admin Dose 2 UNIT; Start 03/31/17 at 06:00 Meropenem/Sodium Chloride 50 ml @ 100 mls/hr Q24H IVPB Last administered on 21:00; Admin Dose 100 MLS/HR; Start 03/31/17 at 21:00 Norepinephrine 16 mg/Dextrose 500 ml @ 1.87 mls/hr TITRATE IV Last administered on 04/01/17 09:41; Admin Dose 7.5 MLS/HR; Start 04/01/17 at 09:30 Propofol (Diprivan) 100 ml @ 1.929 mls/ hr Q12H IV Last administered on 10:44; Admin Dose 1.929 MLS/HR; Start 04/01/17 at 10:30 JV KHALIL MD Apr 01, 2017 10:58
[2017-04-01 11:59] LABS: AADO2 Arterial 587.8 mmHg (7.0-24.0); Allen Test ACCEPTAB; Arterial COHb 0.4 % (0.0-3.0); Arterial Fraction of Oxyhgb 95.1 % (93.0-99.0); Arterial HCO3 19.1 mmol/L (22.0-26.0); Arterial MetHb 0.3 % (0.0-1.5); Arterial Total Hemglobin 8.8 g/dl (12.0-18.0); MODE VENT - AC
--- NOTE | 2017-04-01 12:03 | CONS ---
DATE OF ADMISSION: 03/22/2017 DATE OF CONSULTATION: 04/01/2017 REASON FOR CONSULTATION: Respiratory distress and hypotension. HISTORY OF PRESENT ILLNESS: The patient is an 86-year-old lady with multiple medical problems including end-stage renal failure, hemodialysis, diabetes, hypertension, hyperlipidemia, coronary artery disease with recent mechanical fall with fractures to T12, L3 yesterday, who had increasing respiratory distress requiring transfer to Intensive Care Unit, and here she has been somnolent and hypotensive on mechanical ventilation. Per chart she is a full code. Few further details are available. PAST MEDICAL HISTORY: As above. ALLERGIES: PENICILLIN AND CODEINE. MEDICATION: Per chart. REVIEW OF SYSTEMS: A 12 point review of systems is currently unable to perform. PHYSICAL EXAMINATION: GENERAL APPEARANCE: The patient is a chronically ill-appearing lady, she grimaces to painful stimuli. On BiPAP. VITAL SIGNS: Temperature 98, pulse was 98, blood pressure 80/40. Oxygen saturation 96 percent on current BiPAP settings. Oriented x3. HEENT: Dry mucous membranes. Pupils equal and react to light. HEART: S1, S2. No added sounds or murmurs. CHEST: Diminished air entry bilaterally. ABDOMEN: Soft, nontender. No guarding or rebound. EXTREMITIES: No cyanosis, clubbing or edema. NEUROLOGIC: Unable to assess. LABORATORY: White count 26, hemoglobin 9, platelets of 157,000. BUN 96, creatinine 4.45. INR was 0.98. Hepatitis B and C serology unremarkable. IMPRESSION: 1. Hypoxemic respiratory failure. 2. Possible aspiration pneumonia. 3. Evidence of volume overload. 4. Septic shock. 5. Mitral valve vegetation, concerning for possible endocarditis. 6. End-stage renal failure on hemodialysis. 7. History of coronary artery disease. PLAN: 1. The patient will require a central line placement for vasopressor support. 2. Intubation for airway protection and impending hypoxemic respiratory failure. 3. Continue broad-spectrum antibiotics. 4. Consider AUGUSTINE. 5. Contact next of kin, regarding goals of care as overall prognosis is guarded. Dictated By: Hans Holley MD /vaishali/selena /Document#: [id number]
[2017-04-01] MEDS ORDERED: RIFAMPIN 600 MG in SOD CHLORIDE 0.9% 100 ML IVPB SCH (14:00)
[2017-04-01] MEDS ORDERED: VANCOMYCIN 750 MG in DEXTROSE 5% 150 ML IVPB SCH (14:00)
--- NOTE | 2017-04-01 14:11 | PN ---
Date/Time of Note Date/Time of Note DATE: 04/01/17 TIME: 14:07 Assessment/Plan VTE Prophylaxis VTE Prophylaxis Intervention: SCD's Lines/Catheters IV Catheter Type (from Nrs): Central Line Central line still needed: Yes Urinary Cath still in place: No Assessment/Plan Chief Complaint/Hosp Course 1. Sepsis 2. Malnourishment 3. DM type II, poorly controlled 3. S/p fistulogram 4. Respiratory failure. 5. Possible aspiration pneumonia. 3. Evidence of volume overload. 4. ESRD 5. Mitral valve vegetation, concerning for possible endocarditis. 6. CAD. Problems: Assessment/Plan 1. Continue ventilator support 2. Continue vasopressors 3. HD in progress Subjective 24 Hr Interval Summary Subjective hx not possible: pt non-verbal, pt critical Exam/Review of Systems Vital Signs Vitals Vital Signs Date Time Temp Pulse Resp B/P Pulse Ox O2 Delivery O2 Flow Rate FiO2 04/01/17 13:45 89 26 102/54 100 Mechanical Ventilator 04/01/17 12:00 97.5 04/01/17 11:20 100 04/01/17 06:46 2.0 Intake and Output 03/31/17 03/31/17 04/01/17 15:00 23:00 07:00 Intake Total 0 ml 250 ml 60 ml Output Total 0 ml 0 ml Balance 0 ml 250 ml 60 ml Exam Constitutional: other (sedated with porpofol) Neck: supple Respiratory: diminished breath sounds Cardiovascular: regular rate and rhythm Gastrointestinal: soft Extremities: other (petechia) Results Result Diagram: 04/01/17 0630 04/01/17 0535 Results 24 hrs Laboratory Tests Test 03/31/17 18:25 04/01/17 01:10 04/01/17 05:35 04/01/17 05:36 Bedside Glucose 202 168 204 Sodium Level 155 H Potassium Level 4.8 Chloride Level 106 Carbon Dioxide Level 25 Anion Gap 29 #H Blood Urea Nitrogen 96 H Creatinine 4.45 #H Glucose Level 201 Calcium Level 8.6 Total Bilirubin 0.6 Direct Bilirubin 0.00 Indirect Bilirubin 0.6 Aspartate Amino Transf (AST/SGOT) 732 H Alanine Aminotransferase (ALT/SGPT) 879 H Alkaline Phosphatase 204 H Total Protein 6.3 Albumin 2.9 L Globulin 3.40 H Albumin/Globulin Ratio 0.85 Random Vancomycin Level 16.7 Test 04/01/17 05:55 04/01/17 06:30 04/01/17 07:00 04/01/17 11:21 Blood Gas Specimen Source Blood arterial Blood arterial Blood arterial Arterial Blood Date Drawn 04/01/2017 6:00:46 AM 04/01/2017 8:00:49 AM 04/01/2017 11:50:39 AM Arterial Blood pH (Temp corrected) 7.351 7.362 7.400 Arterial Blood pCO2 (Temp correct) 41.0 46.0 H 31.5 L Arterial Blood pO2 (Temp corrected) 71.3 L 70.2 L 93.7 H Arterial Blood HCO3 22.2 25.5 19.1 L Arterial Blood Base Excess -3.2 L 0 -5.0 L Arterial Blood Oxygen Saturation 91.2 L 91.6 L 95.8 Artis Test ACCEPTAB ACCEPTAB ACCEPTAB Arterial Blood Gas Puncture Site Right Radial Right Radial Left Radial Arterial Blood Carboxyhemoglobin 1.1 1.8 0.4 Arterial Blood Methemoglobin 0.3 0.3 0.3 Blood Gas A-a O2 Differential 159.5 H 379.5 H 587.8 H Oxyhemoglobin Percent 89.9 L 89.7 L 95.1 Total Hemoglobin 8.5 L 8.1 L 8.8 L Blood Gas Temperature 37.0 37.0 37.0 Blood Gas Modality NASAL CANNULA MASK - BIPAP VENT - AC FiO2 39.0 70.0 100.0 Blood Gas Notified Whom LEOLA gillis Blood Gas Notified Time 04/01/2017 6:16:16 AM 04/01/2017 8:17:38 AM 04/01/2017 11:59:27 AM White Blood Count 26.0 #H Red Blood Count 2.80 L Hemoglobin 9.0 L Hematocrit 28.5 L Mean Corpuscular Volume 101.8 H Mean Corpuscular Hemoglobin 32.1 Mean Corpuscular Hemoglobin Concent 31.6 L Red Cell Distribution Width 16.4 H Platelet Count 157 # Mean Platelet Volume 11.8 H Neutrophils % 78.9 H Lymphocytes % 9.0 L Monocytes % 6.6 Eosinophils % 0.1 Basophils % 0.2 Nucleated Red Blood Cells % 1.2 H Neutrophils # (Manual) 20 H Lymphocytes # 2.3 Monocytes # 1.7 H Eosinophils # 0.0 Basophils # 0.1 Nucleated Red Blood Cells # 0.3 H Blood Gas Respiration Rate 20.0 20.0 Blood Gas Actual Respiration Rate 32 23 Blood Gas IPAP/EPAP Ratio 15/5 Blood Gas Tidal Volume 500.0 Blood Gas Low PEEP Setting 5.0 Test 04/01/17 12:55 Bedside Glucose 224 H Medications Medications Current Medications Ondansetron HCl (Zofran Inj) 4 mg Q6H PRN IV NAUSEA AND/OR VOMITING; Start 03/21 at 10:00 Bisacodyl (Dulcolax) 5 mg DAILY PRN PO CONSTIPATION; Start 03/21/17 at 10:00 Pantoprazole (Protonix Tab) 40 mg DAILY@06 PO Last administered on 04/01/17 05 :43; Admin Dose 40 MG; Start 03/22/17 at 06:00 Aspirin (Aspirin) 81 mg DAILY PO Last administered on 04/01/17 08:39; Admin Dose 81 MG; Start 03/22/17 at 09:00 Cholecalciferol (Vitamin D) 1,000 unit DAILY PO Last administered on 04/01/17 08:40; Admin Dose 1,000 UNIT; Start 03/22/17 at 09:00 Docusate Sodium (Colace) 100 mg BID PO Last administered on 04/01/17 08:39; Admin Dose 100 MG; Start 03/21/17 at 21:00 Folic Acid (Folic Acid) 1 mg DAILY PO Last administered on 04/01/17 08:40; Admin Dose 1 MG; Start 03/22/17 at 09:00 Loratadine (Claritin) 10 mg DAILY PRN PO PRN; Start 03/21/17 at 10:00 Multivit/Ca Carb/ B Cmplx/FA/Prenat (Diandra-Svetlana) 1 tab DAILY PO Last administered on 04/01/17 08:40; Admin Dose 1 TAB; Start 03/22/17 at 09:00 Acetaminophen (Tylenol Tab) 500 mg Q6H PRN PO PAIN AND OR ELEVATED TEMP Last administered on 03/24/17 21:28; Admin Dose 500 MG; Start 03/22/17 at 13:30 Miscellaneous Information 1 ea NOTE XX ; Start 03/23/17 at 16:00 Glucose (Glutose) 15 gm Q15M PRN PO DECREASED GLUCOSE; Start 03/23/17 at 16:00 Glucose (Glutose) 22.5 gm Q15M PRN PO DECREASED GLUCOSE; Start 03/23/17 at 16:00 Dextrose (D50w Syringe) 25 ml Q15M PRN IV DECREASED GLUCOSE; Start 03/23/17 at 16:00 Dextrose (D50w Syringe) 50 ml Q15M PRN IV DECREASED GLUCOSE; Start 03/23/17 at 16:00 Glucagon (Glucagen) 1 mg Q15M PRN IM DECREASED GLUCOSE; Start 03/23/17 at 16:00 Glucose (Glutose) 15 gm Q15M PRN BUCCAL DECREASED GLUCOSE; Start 03/23/17 at 16: 00 Morphine Sulfate (morphine) 2 mg Q8H PRN IV PAIN Last administered on 18:35; Admin Dose 2 MG; Start 03/24/17 at 07:00 Midodrine (Proamatine) 5 mg BID@17 GTB Last administered on 04/01/17 08:39 ; Admin Dose 5 MG; Start 03/26/17 at 17:00 Ergocalciferol (Drisdol) 50,000 unit Sa@09 PO Last administered on 03/26/17 23 :18; Admin Dose 50,000 UNIT; Start 03/26/17 at 17:00 Acetaminophen 650 mg 650 mg Q4H PRN NE PAIN OR TEMP ABOVE 38C; Start 03/27/17 at 10:00 Dextrose/Sodium Chloride (D5-1/4ns) 1,000 ml @ 10 mls/hr Q24H IV Last administered on 03/30/17 21:26; Admin Dose 40 MLS/HR; Start 03/30/17 at 21:00 Insulin Aspart NOVOLOG *MILD* ALGORI... Q6 SC Last administered on 04/01/17 12 :57; Admin Dose 3 UNIT; Start 03/31/17 at 06:00 Meropenem/Sodium Chloride 50 ml @ 100 mls/hr Q24H IVPB Last administered on 21:00; Admin Dose 100 MLS/HR; Start 03/31/17 at 21:00 Norepinephrine 16 mg/Dextrose 500 ml @ 1.87 mls/hr TITRATE IV Last administered on 04/01/17 09:41; Admin Dose 7.5 MLS/HR; Start 04/01/17 at 09:30 Propofol 100 ml @ 1.929 mls/ hr Q12H IV Last administered on 04/01/17t 10:44; Admin Dose 1.929 MLS/HR; Start 04/01/17 at 10:30 Vancomycin HCl 750 mg/Dextrose/ Water 150 ml @ 75 mls/hr Q96H IVPB ; Start at 14:00 Rifampin/Sodium Chloride (Rifampin/NS) 100 ml @ 200 mls/hr DAILY IVPB ; Start 04/01/17 at 14:00 HERMINIO BERNSTEIN Apr 01, 2017 14:10
--- NOTE | 2017-04-01 19:49 | QN ---
Documentation Comment Called to room 116 for CODE BLUE. 86-year-old female who had been started on multiple pressors this morning and intubated because of her deteriorating condition began to bradycardia down and then she lost pulses and code in the ICU. According to the nurse she is a nonverbal patient. She has contractures on her legs with atrophy and is chronically debilitated. CPR had been in progress for a few minutes and the patient already received 2 epinephrine doses. Continued CPR for 12 minutes and added sodium bicarbonate another epinephrine and calcium chloride. Subsequent pulse check was asystole. CPR was continued in a pulse check after that showed V. fib. CPR was continued until the shock was administered at 200 J patient was given 300 mg of amiodarone and then 1 mg of lidocaine. CPR was continued. On a subsequent pulse check the patient was once again in V. fib and 200 J shock was given. High quality CPR is continued. On subsequent pulse check the patient was in asystole. High quality CPR was continued. Patient was once again asystolic and of course pulseless. Time of was called at 1936 after 21 minutes of CPR. FABIANO SHABAZZ DO Apr 01, 2017 19:49
--- NOTE | 2017-04-01 21:19 | PRO ---
DATE OF PROCEDURE: 04/01/2017 NAME OF PROCEDURES: Central line placement. SURGEON: Hans Holley MD INDICATION FOR THE PROCEDURE: Hypotension. Vasopressor requirements. DESCRIPTION OF PROCEDURE: The patient was placed into [ ] position. Sterile site was obtained using sterile precautions. Ultrasound guidance, right tunnel jugular vein was visualized. Following infiltration of 5 mL of 1 percent Lidocaine, a large bore needle [ ] the anterior internal jugular vein with no resistance. Guidewire was then passed through the large bore needle following dilatation using Seldinger technique, triple lumen catheter passed over guidewire. This was secured at 15 cm at the neck. The patient had good flow through all 3 ports. The lines were flushed. Post procedure chest x-ray confirmed line placement and no pneumothorax. The patient tolerated the procedure well without complications. Dictated By: Hans Holley MD /vaishali/ /Document#: [id number]
--- NOTE | 2017-04-01 21:32 | PRO ---
DATE OF PROCEDURE: 04/01/2017 NAME OF PROCEDURES: Endotracheal intubation. SURGEON: Hans Holley MD INDICATION FOR THE PROCEDURE: Hypoxemia. Respiratory failure. Inability to protect airway. DESCRIPTION OF PROCEDURE: The patient was placed in supine position, neck extended. Blood pressure, EKG and pulse oximetry continuously monitored, required 10 mg of etomidate x1. Using idania larygoscope scope, the vocal cords were visualized. Size 7.5 endotracheal tube was then passed through the focal cords without resistance. This was secured at 24 cm to the lip. The patient had immediate condensation in the endotracheal tube, CO2 capnometer was positive, and equal breath sounds bilaterally. The patient had a postprocedure chest x-ray which confirmed tube placement. She was placed on mechanically ventilation without complication. Dictated By: Hans Holley MD /vaishali/ /Document#: [id number]
--- NOTE | 2017-04-02 05:32 | PN ---
DATE: 04/01/2017 SUBJECTIVE: The patient was intubated this morning. Started on Levophed drip. She is in no distress. OBJECTIVE DATA: VITAL SIGNS: Temperature 96.6, pulse 96, respirations 24, blood pressure 81/42, and saturation 98 on vent. LABORATORY AND DIAGNOSTIC DATA: WBC 26, H and H 9 and 28.5, platelets 157, and neutrophils 78.9. INDWELLINGS: Right upper extremity AV fistula, endotracheal tube, and NG tube. MICROBIOLOGY: Blood culture and sputum culture growing MRSA. ANTIMICROBIALS: Vancomycin and meropenem with vanc level today 16.7. PHYSICAL EXAMINATION: GENERAL: This is a chronically ill-appearing, elderly woman who is in no distress. HEENT: Head atraumatic, normocephalic. Sclerae anicteric. Buccal mucosa dry. NECK: Supple. CHEST: Rise symmetrical. Breath sounds diminished at the bases. HEART: S1, S2. ABDOMEN: Soft, bowel sounds hypoactive. EXTREMITIES: With trace edema. Mottled and cyanotic. ASSESSMENT: 1. Severe sepsis with shock and multisystem organ failure. 2. Disseminated methicillin resistant staphylococcus aureus (MRSA) bacteremia. 3. Endocarditis. 4. End-stage renal disease, hemodialysis dependent. 5. Status post right upper extremity fistulogram. 6. History of coronary artery bypass grafting (CABG). 7. History of Clostridium difficile colitis. PLAN: The patient is hemodynamically unstable on broad-spectrum antibiotics. He is covered with vancomycin for MRSA. She is being followed by multiple consultants. We will add Rifampin to the regimen. CODE STATUS: She is full code. PLAN: Guarded. Dictated By: Antonio Millard NP /vaishali/lina /Document#: [id number]
[2017-04-02] MEDS ORDERED: ERGOCALCIFEROL 50,000 UNIT CAP PO SCH (09:00)
--- NOTE | 2017-04-02 19:05 | DES ---
Date/Time of Note Date/Time of Note DATE: 04/02/17 TIME: 19:01 Discharge/ Summary Admission/Discharge Info Admit Date/Time Mar 22, 2017 at 16:19 Discharge Date/Time Apr 01, 2017 at 19:36 Final Diagnosis Respiratory failure and cardiopulmonary arrest Preliminary Cause of cardiopulmonary arrest Hx of Present Illness pt was admitted with sepsis and medical problems. She was on HD.Pt had hypertension, DM type II, and pathological fracture of the spine Hospital Course 1. Sepsis 2. Malnourishment 3. DM type II, poorly controlled 3. S/p fistulogram 4. Respiratory failure. 5. Possible aspiration pneumonia. 3. Evidence of volume overload. 4. ESRD 5. Mitral valve vegetation, concerning for possible endocarditis. 6. CAD. Pending Labs/Cultures Laboratory Tests Test 04/01/17 19:17 Bedside Glucose 109mg/dL (70-220) HERMINIO BERNSTEIN Apr 02, 2017 19:05
== END 2017-04-01 19:36 | disposition expired | DRG 515 ==
LOC: E/R 06:30 → MS2 08:26 → OBSVTOIN 03-22 16:19 → TEL 03-27 17:14 → ICU 03-31 13:40
PROVIDERS: ADMIT Internal Medicine Nephrology; ATTEND Internal Medicine Nephrology
PROC: 5A1D60Z (ICD-10-PCS; 2017-03-21)
PROC: 0X363ZZ Control Bleeding in Right Upper Extremity, Percutaneous Approach (ICD-10-PCS; 2017-03-25)
PROC: 05753ZZ Dilation of Right Subclavian Vein, Percutaneous Approach (ICD-10-PCS; 2017-03-25)
PROC: 027V3ZZ Dilation of Superior Vena Cava, Percutaneous Approach (ICD-10-PCS; principal; 2017-03-25 12:00)
PROC: 02HV33Z Insertion of Infusion Device into Superior Vena Cava, Percutaneous Approach (ICD-10-PCS; 2017-04-01)
PROC: 0BH17EZ Insertion of Endotracheal Airway into Trachea, Via Natural or Artificial Opening (ICD-10-PCS; 2017-04-01)
PROC: 5A1935Z Respiratory Ventilation, Less than 24 Consecutive Hours (ICD-10-PCS; 2017-04-01)
DX: M80.08XA Age-related osteoporosis with current pathological fracture, vertebra(e), initial encounter for fracture (principal); N18.6 End stage renal disease; A41.02 Sepsis due to Methicillin resistant Staphylococcus aureus; J96.00 Acute respiratory failure, unspecified whether with hypoxia or hypercapnia; K72.00 Acute and subacute hepatic failure without coma; J69.0 Pneumonitis due to inhalation of food and vomit; R65.21 Severe sepsis with septic shock; I33.0 Acute and subacute infective endocarditis; I12.0 Hypertensive chronic kidney disease with stage 5 chronic kidney disease or end stage renal disease; T82.858A Stenosis of other vascular prosthetic devices, implants and grafts, initial encounter; E46 Unspecified protein-calorie malnutrition; E11.22 Type 2 diabetes mellitus with diabetic chronic kidney disease; Z99.2 Dependence on renal dialysis; E11.65 Type 2 diabetes mellitus with hyperglycemia; I46.9 Cardiac arrest, cause unspecified; Z91.81 History of falling; G89.29 Other chronic pain; Z85.3 Personal history of malignant neoplasm of breast; M48.00 Spinal stenosis, site unspecified; I34.0 Nonrheumatic mitral (valve) insufficiency; F03.90 Unspecified dementia, unspecified severity, without behavioral disturbance, psychotic disturbance, mood disturbance, and anxiety; Z95.1 Presence of aortocoronary bypass graft; Z68.23 Body mass index [BMI] 23.0-23.9, adult
CPT/HCPCS: 31500; 36415; 36430; 36600; 36901; 37248; 71010; 72131; 76705; 80048; 80053; 80202; 82140; 82803; 82962; 83036; 83605; 83735; 84100; 85025; 85610; 85730; 86704; 86709; 86803; 86850; 86900; 86901; 86920; 87040; 87070; 87340; 90935; 92950; 93005; 93306; 94002; 94660; 96374; 96375; 97162; A4310; C1725; C1769; G0378; J0171; J0282; J0690; J0692; J1200; J1815; J1956; J2001; J2185; J2250; J2270; J2405; J2930; J3010; J3260; J3370; J7042; J7050; J7060; J7509; P9016; P9047